=== PATIENT | female | born 1940 | race Caucasian/White ===

== ENCOUNTER 2020-01-15 14:51 | Outpatient (REF) | payer MEDICARE, BC, SELFPAY ==
[2020-01-16 07:20] LABS: Theophylline 1.1
== END 2020-01-15 14:52 | disposition home or self-care (01) ==
LOC: HO.LAB 14:51
PROVIDERS: Visit Provider Physician Assistant
DX: J45.909 Unspecified asthma, uncomplicated (principal)
CPT/HCPCS: 80198

== ENCOUNTER 2020-06-21 13:18 | Outpatient (REF) | payer MEDICARE, SELFPAY ==
--- NOTE | ~2020-06-21 | MM_ITS ---
EXAMINATION: MM SCREENING DIGITAL BREAST TOMOSYNTHESIS, BILATERAL CLINICAL INFORMATION: Screening. Asymptomatic. The lifetime risk of breast cancer based on the Tyrer-Cuzick Model is 2%. COMPARISON: Mammography: 09/06/2018, 03/06/2017, 01/20/2016 TECHNIQUE: Digital mammography is performed in craniocaudal and mediolateral oblique views along with computer-aided detection (CAD). Digital breast tomosynthesis is performed in implant-displaced craniocaudal and implant-displaced mediolateral oblique views along with computer-aided detection (CAD). Synthesized 2D images are generated from the tomosynthesis. FINDINGS: The breasts are extremely dense, which lowers the sensitivity of mammography (ACR BI-RADS breast composition Category d). There are no significant masses, abnormal calcifications, or other abnormalities. There are bilateral implants. Benign coarse capsular calcifications are present on the left. MM/MM tomosynthesis screen imp BI IMPRESSION: No mammographic evidence of malignancy. ASSESSMENT: BI-RADS 2: Benign RECOMMENDATION: Routine annual mammography screening. This patient's information was entered into a reminder system with a target due date for their next mammogram.
== END 2020-06-21 13:19 | disposition home or self-care (01) ==
LOC: HO.MAMMO 13:18
PROVIDERS: Visit Provider Internal Medicine Medical Oncology
DX: Z12.31 Encounter for screening mammogram for malignant neoplasm of breast (principal)
CPT/HCPCS: 77063; 77067

== ENCOUNTER 2020-06-30 10:29 | Outpatient (REF) | payer MEDICARE, SELFPAY ==
[2020-06-30 11:36] LABS: MANUAL DIFF FLAG NO
[2020-06-30 11:42] LABS: Basophils Absolute Auto 0.1 X10*3/uL (0.0-0.2); Basophils Percent Auto 0.8 % (0-2); Eosinophils Absolute Auto 0.2 X10*3/uL (0.0-0.4); Eosinophils Percent Auto 3.7 % (0-4); Hemoglobin 13.8 g/dl (12.0-16.0); Imm Gran Abs Auto 0.03 X10*3/uL (0.00-0.03); Imm Gran Pct Auto 0.5 % (0.0-0.4); Lymphocytes Absolute Auto 2.2 X10*3/uL (1.2-4.9); Lymphocytes Percent Auto 33.6 % (20-40); Mean Corpuscular HGB Conc 32.1 g/dl (31.0-35.0); Mean Corpuscular Hemoglobin 31.2 pg (27.0-33.0); Mean Corpuscular Volume 97.1 fL (80-98); Mean Platelet Volume 9.6 fL (9.4-12.3); Monocytes Absolute Auto 0.7 X10*3/uL (0.1-1.2); Monocytes Percent Auto 10.3 % (2-11); Neutrophils Absolute Auto 3.3 X10*3/uL (2.0-8.3); Neutrophils Percent Auto 51.1 % (45-73); Platelet Count 295 X10*3/uL (160-400); Red Blood Count 4.43 X10*6/uL (4.20-5.50); Red Cell Distribution Width 13.2 % (11.0-16.0); White Blood Count 6.5 X10*3/uL (4.8-10.8)
[2020-06-30 12:50] LABS: Folate 5.1 ng/mL (> or = 4.0); Vitamin B12 399 pg/mL (200-900)
[2020-06-30 13:20] LABS: Alanine Aminotransferase 12 U/L (0-31); Albumin Level 4.1 g/dL (3.5-5.0); Alkaline Phosphatase 69 U/L (39-117); Anion Gap 13 (12-20); Aspartate Amino Transferase 19 U/L (5-31); Bilirubin Total 0.6 mg/dL (0.0-1.0); Blood Urea Nitrogen 14 mg/dL (9-16); Calcium 9.4 mg/dL (8.4-10.2); Carbon Dioxide 26 mmol/L (22-29); Chloride 106 mmol/L (96-108); Cholesterol 156 mg/dL; Estimated Glomerular Filt Rate > 60; Glucose Fasting 89 mg/dL (60-99); HDL Cholesterol 52 mg/dL; LDL Cholesterol Calculated 92 mg/dl; Sodium 141 mmol/L (135-145); Total Protein 6.8 g/dL (6.5-8.0); Triglycerides 64 mg/dL
== END 2020-06-30 10:30 | disposition home or self-care (01) ==
LOC: HO.LAB 10:29
PROVIDERS: PCP Internal Medicine Medical Oncology; Visit Provider Internal Medicine Medical Oncology
DX: I10 Essential (primary) hypertension (principal); E78.2 Mixed hyperlipidemia; J45.909 Unspecified asthma, uncomplicated; R41.3 Other amnesia; F09 Unspecified mental disorder due to known physiological condition
CPT/HCPCS: 36415; 80053; 80061; 82607; 82746; 84439; 84443; 85025

== ENCOUNTER 2020-10-19 11:21 | Outpatient (REF) | payer MEDICARE, SELFPAY ==
[2020-10-19 12:24] LABS: MANUAL DIFF FLAG NO
[2020-10-19 12:34] LABS: Basophils Absolute Auto 0.1 X10*3/uL (0.0-0.2); Basophils Percent Auto 0.7 % (0-2); Eosinophils Absolute Auto 0.4 X10*3/uL (0.0-0.4); Hematocrit 45.2 % (37-47); Hemoglobin 14.6 g/dl (12.0-16.0); Imm Gran Abs Auto 0.03 X10*3/uL (0.00-0.03); Imm Gran Pct Auto 0.4 % (0.0-0.4); Lymphocytes Absolute Auto 2.4 X10*3/uL (1.2-4.9); Lymphocytes Percent Auto 28.3 % (20-40); Mean Corpuscular HGB Conc 32.3 g/dl (31.0-35.0); Mean Corpuscular Hemoglobin 31.3 pg (27.0-33.0); Mean Corpuscular Volume 96.8 fL (80-98); Mean Platelet Volume 9.6 fL (9.4-12.3); Monocytes Absolute Auto 0.8 X10*3/uL (0.1-1.2); Monocytes Percent Auto 9.3 % (2-11); Neutrophils Absolute Auto 4.7 X10*3/uL (2.0-8.3); Neutrophils Percent Auto 56.3 % (45-73); Platelet Count 331 X10*3/uL (160-400); Red Blood Count 4.67 X10*6/uL (4.20-5.50); Red Cell Distribution Width 13.2 % (11.0-16.0); White Blood Count 8.4 X10*3/uL (4.8-10.8)
[2020-10-19 12:47] LABS: Alanine Aminotransferase 9 U/L (0-31); Albumin Level 4.3 g/dL (3.5-5.0); Alkaline Phosphatase 70 U/L (39-117); Anion Gap 14 (12-20); Aspartate Amino Transferase 21 U/L (5-31); Bilirubin Total 0.5 mg/dL (0.0-1.0); Blood Urea Nitrogen 14 mg/dL (9-16); Calcium 10.1 mg/dL (8.4-10.2); Carbon Dioxide 27 mmol/L (22-29); Chloride 104 mmol/L (96-108); Cholesterol 165 mg/dL; Estimated Glomerular Filt Rate 59; Glucose Fasting 94 mg/dL (60-99); HDL Cholesterol 51 mg/dL; LDL Cholesterol Calculated 95 mg/dl; Potassium 3.9 mmol/L (3.3-5.1); Sodium 141 mmol/L (135-145); Total Protein 7.2 g/dL (6.5-8.0); Triglycerides 95 mg/dL
== END 2020-10-19 11:22 | disposition home or self-care (01) ==
LOC: HO.LAB 11:21
PROVIDERS: PCP Internal Medicine Medical Oncology; Visit Provider Internal Medicine Medical Oncology
DX: I10 Essential (primary) hypertension (principal); E78.2 Mixed hyperlipidemia; R63.6 Underweight
CPT/HCPCS: 36415; 80053; 80061; 85025

== ENCOUNTER 2020-11-04 09:59 | Emergency (ER) | payer MEDICARE, BC, SELFPAY ==
--- NOTE | ~2020-11-04 | CT_ITS ---
EXAMINATION: CT HEAD WITHOUT CONTRAST CLINICAL INFORMATION: Confused with altered mental status. COMPARISON: None. TECHNIQUE: Contiguous axial imaging was performed from the skull base to vertex without intravenous administration of contrast. This CT examination was performed using dose optimization techniques as appropriate, variously including the following: *Automated exposure control *Adjustment of mA and/or kV according to patient size (this includes techniques or standardized protocols for targeted exams where dose is matched to indication/reason for exam; i.e. extremities or head) *Use of iterative reconstruction technique DLP: 637 mGy-cm FINDINGS: There is hypoattenuation of the brain parenchyma with decreased nieves to white matter differentiation in the left posterior parietal lobe (images 24 through 21 of series 2). These findings are most consistent with a territorial infarction in the region of the left MCA. There is no evidence of hemorrhagic conversion, nor significant mass effect. There is no midline shift. Nieves to white matter differentiation is otherwise preserved. A few foci of hypoattenuation in the periventricular and deep white matter are consistent with mild microangiopathy. There is proportional prominence of the ventricles and sulcal spaces. No evidence for obstructive hydrocephalus. No extra-axial fluid collections. No acute soft tissue or osseous abnormalities. The mastoid air cells and paranasal sinuses are clear. CT/CT head/brain wo con IMPRESSION: Acute to subacute infarction in the left parietal lobe within the territory of the left middle cerebral artery. Correlate clinically for focal neurological abnormalities. No evidence of hemorrhagic conversion nor significant mass effect. This critical result was discussed with Bea Gorman at 11/04/2020 11:41 AM and it was ascertained that the content and urgency of the report was understood at the time of direct communication.
--- NOTE | ~2020-11-04 | XR_ITS ---
EXAMINATION: XR CHEST CLINICAL INFORMATION: Shortness of breath, congestion, and cough. COMPARISON: None. TECHNIQUE: AP view of the chest was obtained. FINDINGS: Normal appearance of the cardiomediastinal silhouette aside from atherosclerotic disease of the thoracic aorta. There is mild interstitial prominence throughout both lungs. There is a subtle more focal opacity in the right lower lobe. No pleural effusions or pneumothorax. There is biapical pleural thickening/scarring. There is no evidence of acute bony abnormalities. XR/XR chest 1V IMPRESSION: Interstitial prominence predominantly in the lung bases is indeterminate. This could be seen acutely in the setting of atypical infections, bronchitis or asthma. In the right lung base, there is a questionable more focal opacity with could be related with subsegmental atelectasis, bronchovascular crowding, bronchial wall thickening or early consolidation. Recommend a short-term follow-up to ensure resolution of these findings.
--- NOTE | ~2020-11-04 | CT_ITS ---
EXAMINATION: CT ANGIOGRAM NECK WITH CONTRAST CT ANGIOGRAM BRAIN WITH CONTRAST CLINICAL INFORMATION: Acute to subacute stroke. COMPARISON: Head CT performed just prior. TECHNIQUE: Test bolus sequences followed by intravenous administration 70 mL of Omnipaque 350. Helical imaging was performed in the axial plane from the thoracic inlet to the skull vertex. Delayed postcontrast imaging of the head was also performed. The data was processed at the cardiovascular technologist workstation for generation of MIP sequences. Angled MIPs and volume rendered reformatted images were also generated at an offline 3D workstation. Stenoses are assessed in accordance with NASCET criteria unless otherwise indicated. This CT examination was performed using dose optimization techniques as appropriate, variously including the following: *Automated exposure control *Adjustment of mA and/or kV according to patient size (this includes techniques or standardized protocols for targeted exams where dose is matched to indication/reason for exam; i.e. extremities or head) *Use of iterative reconstruction technique DLP: 1319 mGy-cm FINDINGS: Head CT: There is redemonstration of a subacute infarct within the left parietal lobe. There is no hemorrhagic transformation. There is mild localized sulcal effacement but no significant regional mass effect or midline shift. Hypoattenuation in the cerebral white matter is compatible with chronic microangiopathy. The ventricles are normal in size without hydrocephalus. The dural venous sinuses are normally opacified. The extracranial structures are within normal limits. Neck CTA: Atheromatous changes are seen involving the aortic arch but without stenosis. The bilateral common carotid arteries are patent. Atheromatous changes are seen at the bilateral carotid bifurcations and along the proximal cervical internal carotid arteries resulting in 52% stenosis of the proximal right internal carotid artery. No significant stenosis is seen at the left internal carotid artery origin. There is severe stenosis at the right vertebral artery origin. More distally, the cervical right vertebral artery is patent through the the V2 the V3 and V4 segments are further described on the head CTA heading. The left vertebral artery appears mildly dominant. Head CTA: Bilateral carotid siphon atheromatous calcifications are seen without significant stenosis. The A1 and A2 ARPIT segments appear widely patent. There is severe stenosis at the junction of the right A2 and A3 segment but more distally the ACAs are opacified. The MCAs are patent proximally. There is focal occlusion of the distal left M2 segments within the posterior aspect of the sylvian fissure. The MCA collaterals appear symmetric. There is evidence of a right vertebral artery dissection extending from the V3 segment through the V4/intradural segment. A filling defect compatible with a flap is seen extending from the extradural to the intradural segment and best demonstrated on series 10 image [id number]. There is associated severe stenosis of the distal intradural right vertebral artery segment. The left vertebral artery opacifies normally. The basilar artery is patent. office inspector are normally opacified. No aneurysm is seen. Non-vascular findings: Significant pleural parenchymal thickening/scarring is seen at the bilateral lung apices. There are background changes of emphysema. Degenerative changes are noted in the cervical spine most notably at the C6-C7 level. 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 There is an intimal flap seen in the region of dissection. The distal intradural right vertebral artery demonstrates moderate to severe stenosis. There is focal occlusion of the distal left M2 MCA segment. The MCA collaterals are otherwise symmetric. There is severe stenosis of the right vertebral artery origin. This critical result was discussed with Bea ROSAS on 11/04/2020 2:38 PM, and it was ascertained that the content and urgency of the report was understood at the time of direct communication.
--- NOTE | 2020-11-04 10:12 | ECG_ITS ---
Test Reason : SOB Blood Pressure : / mmHG Vent. Rate : 074 BPM Atrial Rate : 074 BPM P-R Int : 154 ms QRS Dur : 086 ms QT Int : 404 ms P-R-T Axes : 082 066 075 degrees QTc Int : 448 ms Normal sinus rhythm Possible Left atrial enlargement Left ventricular hypertrophy Abnormal ECG No previous ECGs available Referred By: Bea Gorman Electronically Signed By:NATTY ROWE
--- NOTE | 2020-11-04 10:16 | ED.AMS ---
HPI - Altered Mental Status General Chief Complaint: General Medical Stated Complaint: 1 WEEK INCREASED AMS W/COUGH FROM HOME Time Seen by Provider: 11/04/20 10:12 Source: patient and EMS Mode of arrival: EMS Limitations: altered mental status History of Present Illness HPI narrative: 80 y/o female with unknown medial history presents to the ER with confusion for the last 1 week. She spoke with her sister on the phone this morning who called 911 for her because of her marked confusion per EMS. On EMS arrival they report she is living in an unkempt home with significant hording, several cats. She is unable to report a history and offers no complaints. She is confused and having a hard time completing a sentence with scattered thoughts. She got up and went to use the bathroom on arrival. BP elevated 180-190s systolic. MD complaint: confusion Onset (ago): unknown Timing confirmed by: family member Severity: moderate Consistency of symptoms: getting Worse Context: unknown Associated symptoms: cough Treatments prior to arrival: oxygen Related Data Home Medications Medication Instructions Recorded Confirmed albuterol sulfate 90 mcg/actuation 2 puff PO Q2-4H PRN 11/04/20 aerosol inhaler atorvastatin 20 mg tablet 1 tab PO DAILY 11/04/20 estradiol 0.5 mg tablet 1 tab PO MO 11/04/20 famotidine 40 mg tablet 1 tab PO DAILY 11/04/20 medroxyprogesterone 5 mg tablet 5 mg PO DAILY 11/04/20 mesalamine 400 mg capsule (with 4 cap PO BID 11/04/20 delayed release tablets inside) (Delzicol) mometasone-formoterol HFA 200 2 puff PO BID 11/04/20 mcg-5 mcg/actuation aerosol inhaler (Dulera) montelukast 10 mg tablet 1 tab PO BEDTIME 11/04/20 sotalol 80 mg tablet 1 tab PO DAILY 11/04/20 theophylline 300 mg 1 tab PO DAILY 11/04/20 tablet,extended release,12 hr tiotropium bromide 18 mcg capsule 1 cap INHALATION DAILY 11/04/20 with inhalation device (Spiriva with HandiHaler) Allergies Allergy/AdvReac Type Severity Reaction Status Date / Time Unable to Assess Allergy Unverified 11/04/20 10:12 Review of Systems Review of Systems: Yes Unobtainable due to mental condition and Unobtainable due to mental status PMF Past Medical History Attestation statement: The following information was validated with the patient. Social History Social History Alcohol intake: never Patient Tobacco Use Status: Current everyday Tobacco user Smoked in Last 30 Days: Yes Use of substances other than those prescribed or required for medical reasons: No Advance Directives: No Advance Directives Information Provided: Yes Physical Exam Vital Signs: Vital Signs: Last Vital Signs Temp 97.6 F 11/04/20 11:28 Pulse 86 11/04/20 14:36 Resp 17 11/04/20 14:36 BP 144/97 H 11/04/20 14:36 Pulse Ox 95 11/04/20 14:36 Body Mass Index 18.2 Appearance: Alert, thin, frail. Oriented X1. No acute distress. Head: atraumatic normocephalic Eyes: Pupils equal, round and reactive to light. ENT: Pharynx normal. Neck: Normal inspection. Neck supple. CVS: Normal heart rate and rhythm. Pulses normal. Respiratory: No respiratory distress. Breath sounds diminished at bilateral bases. Congested cough. Abdomen: Soft and nontender. +BS x4 Skin: Skin warm and dry. Normal skin color. Normal skin turgor. No rashes. Extremities: No lower extremity edema. Atraumatic x4 Neuro: Oriented X 1. Confused, speaking in complete sentences but not making sense, moves all extremities, strength equal and symmetrical throughout and follows commands. NIH Stroke Scale Internal: Initial- Upon Arrival Level of Consciousness: Alert Level of Consciousness Questions: Answers one question correctly Level of Consciousness Commands: Performs both tasks correctly Best Gaze: Normal Visual: No visual loss Facial Palsy: Normal Motor Arm (Right): No drift Motor Arm (Left): No drift Motor Leg (Right): No drift Motor Leg (Left): No drift Limb Ataxia: Absent Sensory: Normal Best Language: No aphasia Dysarthia: Normal Extinction and Inattention: No abnormality Score: 1 Course Course Course Narrative: 80 y/o female with unknown medical history presents with worsening confusion x1 week. History is very limited as patient is a poor historian. She smells of urine, is unkempt and has a congested cough. Neuro exam is nonfocal, very confused. Will get labs, CXR, EKG, UA, and COVID swab. Vitals are stable at this time. Reevaluation(s) Reevaluation #1: CT head showing acute to subacute left parietal stroke in the region of the territory of the left MCA without mass effect, edema or hemorrhagic conversion. No last known well time, with non-debilitating, non-focal symptoms not a tPA candidate at this time. Will keep BP 180. Will get CTA head/neck to look for LVO. UA + for infection, other labs pending. Not febrile or tachycardic. Will treat with Rocephin. Reevaluation #2: Case management found sister's phone number Roxanne [phone] - called and spoke with her. She reports her sister has a history of COPD, long time smoker, hx HTN and cartoid stenosis?, was a patient of Dr. Lagos'ryan but has not been to the doctor since he . She has been more confused and forgetful the last 1 week. Roxanne saw her last week and thought she looked unwell but patient refused to go to the hospital or the doctor. This morning when she spoke with her it was worse so she called 911. Her pharmacy is [facility] in [place] [facility]. CTA Head/neck pending. IV azithromycin added for abnormal CXR, possible bronchitis vs CAP with underlying COPD. SPO2 91-96% on room air, no respiratory distress. 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 Distal M2 with occlusion on the left, subacute. Transfer imaged to [facility] and transfer line called. Additional Reevaluation(s): Dr. Carson from Neuro Stroke team called back after reviewing images with Neuro interventionalist - question of the vertebral artery dissection as there is streak artifact there, they will plan on getting an MRI at [facility] to better evaluate. She is okay for transfer to admission to Med/Surg under Hospitalist service. NM aspirin 300 mg given. NPO. Patient and sister Roxanne updated at the bedside about results and need for transfer to higher level of care. Consultations Consultation #1: [facility] stroke MDM - Altered Mental Status Lab Data Result diagrams: 11/04/20 12:07 11/04/20 12:07 Labs: Lab Results 11/04/20 11/04/20 11/04/20 Range/Units 10:45 10:45 12:07 WBC 8.6 (4.8-10.8) X10*3/uL RBC 4.73 (4.20-5.50) X10*6/uL Hgb 15.0 (12.0-16.0) g/dl Hct 45.8 (37-47) % MCV 96.8 (80-98) fL MCH 31.7 (27.0-33.0) pg MCHC 32.8 (31.0-35.0) g/dl RDW 13.5 (11.0-16.0) % Plt Count 298 (160-400) X10*3/uL MPV 9.6 (9.4-12.3) fL Immature Gran % (Auto) 0.2 (0.0-0.4) % Neut % (Auto) 66.2 (45-73) % Lymph % (Auto) 22.0 (20-40) % Stevens % (Auto) 7.7 (2-11) % Eos % (Auto) 3.4 (0-4) % Baso % (Auto) 0.5 (0-2) % Lymph # (Auto) 1.9 (1.2-4.9) X10*3/uL Stevens # (Auto) 0.7 (0.1-1.2) X10*3/uL Eos # (Auto) 0.3 (0.0-0.4) X10*3/uL Baso # (Auto) 0.0 (0.0-0.2) X10*3/uL Abs Immat Gran (auto) 0.02 (0.00-0.03) X10*3/uL Absolute Neuts (auto) 5.7 (2.0-8.3) X10*3/uL Absolute Nucleated RBC 0.000 (0.0-0.012) X10*3/uL Nucleated RBC % (auto) 0.0 (0.0-0.2) /100WBC PT (9.9-13.0) SEC INR (0.9-1.1) APTT (24.1-38.0) SEC Sodium (135-145) mmol/L Potassium (3.3-5.1) mmol/L Chloride (96-108) mmol/L Carbon Dioxide (22-29) mmol/L Anion Gap (12-20) BUN (9-16) mg/dL Creatinine (0.5-1.4) mg/dL Estim Creat Clear Calc Estimated GFR Random Glucose (60-115) mg/dL Lactic Acid (0.5-2.0) mmol/L Calcium (8.4-10.2) mg/dL Magnesium (1.6-2.6) mg/dL Total Bilirubin (0.0-1.0) mg/dL Direct Bilirubin (0.0-0.5) mg/dL AST (5-31) U/L ALT (0-31) U/L Alkaline Phosphatase (39-117) U/L Total Creatine Kinase (26-140) U/L Troponin I High Sens (<3.5-17.0) ng/L B-Natriuretic Peptide (<100) pg/mL Total Protein (6.5-8.0) g/dL Albumin (3.5-5.0) g/dL Urine Color YELLOW Urine Appearance HAZY Urine pH 7.0 (5.0-8.0) Ur Specific [place] 1.015 (1.005-1.025) Urine Protein NEG (NEG-TRACE) MG/DL Urine Glucose (UA) NEG (NEG) MG/DL Urine Ketones NEG (NEG) MG/DL Urine Blood TRACE (NEG) Urine Nitrite NEG (NEG) Ur Leukocyte Esterase 1+ H (NEG) Urine RBC 1-4 (0) /HPF Urine WBC 10-14 H (0-4) /HPF Ur Squamous Epith Cells 4+ /LPF Urine Bacteria 1+ /LPF Urine Opiates Screen (Not Detect) Urine Fentanyl Screen (Not Detect) Ur Barbiturates Screen (Not Detect) Ur Phencyclidine Scrn (Not Detect) Ur Amphetamines Screen (Not Detect) U Benzodiazepines Scrn (Not Detect) Urine Cocaine Screen (Not Detect) U Marijuana (THC) Screen (Not Detect) Ethyl Alcohol mg/dL COVID-19 (MU) Negative (Negative) COVID-19 Clin Com See Note 11/04/20 11/04/20 11/04/20 Range/Units 12:07 12:07 12:07 WBC (4.8-10.8) X10*3/uL RBC (4.20-5.50) X10*6/uL Hgb (12.0-16.0) g/dl Hct (37-47) % MCV (80-98) fL MCH (27.0-33.0) pg MCHC (31.0-35.0) g/dl RDW (11.0-16.0) % Plt Count (160-400) X10*3/uL MPV (9.4-12.3) fL Immature Gran % (Auto) (0.0-0.4) % Neut % (Auto) (45-73) % Lymph % (Auto) (20-40) % Stevens % (Auto) (2-11) % Eos % (Auto) (0-4) % Baso % (Auto) (0-2) % Lymph # (Auto) (1.2-4.9) X10*3/uL Stevens # (Auto) (0.1-1.2) X10*3/uL Eos # (Auto) (0.0-0.4) X10*3/uL Baso # (Auto) (0.0-0.2) X10*3/uL Abs Immat Gran (auto) (0.00-0.03) X10*3/uL Absolute Neuts (auto) (2.0-8.3) X10*3/uL Absolute Nucleated RBC (0.0-0.012) X10*3/uL Nucleated RBC % (auto) (0.0-0.2) /100WBC PT (9.9-13.0) SEC INR (0.9-1.1) APTT (24.1-38.0) SEC Sodium 141 (135-145) mmol/L Potassium 4.0 (3.3-5.1) mmol/L Chloride 105 (96-108) mmol/L Carbon Dioxide 28 (22-29) mmol/L Anion Gap 12 (12-20) BUN 15 (9-16) mg/dL Creatinine 0.73 (0.5-1.4) mg/dL Estim Creat Clear Calc 52.8 Estimated GFR > 60 Random Glucose 87 (60-115) mg/dL Lactic Acid 0.8 (0.5-2.0) mmol/L Calcium 9.5 (8.4-10.2) mg/dL Magnesium 2.0 (1.6-2.6) mg/dL Total Bilirubin 0.5 (0.0-1.0) mg/dL Direct Bilirubin 0.2 (0.0-0.5) mg/dL AST 19 (5-31) U/L ALT 10 (0-31) U/L Alkaline Phosphatase 59 (39-117) U/L Total Creatine Kinase 84 (26-140) U/L Troponin I High Sens 10.0 (<3.5-17.0) ng/L B-Natriuretic Peptide 147 H (<100) pg/mL Total Protein 6.8 (6.5-8.0) g/dL Albumin 4.0 (3.5-5.0) g/dL Urine Color Urine Appearance Urine pH (5.0-8.0) Ur Specific [place] (1.005-1.025) Urine Protein (NEG-TRACE) MG/DL Urine Glucose (UA) (NEG) MG/DL Urine Ketones (NEG) MG/DL Urine Blood (NEG) Urine Nitrite (NEG) Ur Leukocyte Esterase (NEG) Urine RBC (0) /HPF Urine WBC (0-4) /HPF Ur Squamous Epith Cells /LPF Urine Bacteria /LPF Urine Opiates Screen (Not Detect) Urine Fentanyl Screen (Not Detect) Ur Barbiturates Screen (Not Detect) Ur Phencyclidine Scrn (Not Detect) Ur Amphetamines Screen (Not Detect) U Benzodiazepines Scrn (Not Detect) Urine Cocaine Screen (Not Detect) U Marijuana (THC) Screen (Not Detect) Ethyl Alcohol mg/dL COVID-19 (MU) (Negative) COVID-19 Clin Com 11/04/20 11/04/20 11/04/20 Range/Units 12:07 12:07 14:32 WBC (4.8-10.8) X10*3/uL RBC (4.20-5.50) X10*6/uL Hgb (12.0-16.0) g/dl Hct (37-47) % MCV (80-98) fL MCH (27.0-33.0) pg MCHC (31.0-35.0) g/dl RDW (11.0-16.0) % Plt Count (160-400) X10*3/uL MPV (9.4-12.3) fL Immature Gran % (Auto) (0.0-0.4) % Neut % (Auto) (45-73) % Lymph % (Auto) (20-40) % Stevens % (Auto) (2-11) % Eos % (Auto) (0-4) % Baso % (Auto) (0-2) % Lymph # (Auto) (1.2-4.9) X10*3/uL Stevens # (Auto) (0.1-1.2) X10*3/uL Eos # (Auto) (0.0-0.4) X10*3/uL Baso # (Auto) (0.0-0.2) X10*3/uL Abs Immat Gran (auto) (0.00-0.03) X10*3/uL Absolute Neuts (auto) (2.0-8.3) X10*3/uL Absolute Nucleated RBC (0.0-0.012) X10*3/uL Nucleated RBC % (auto) (0.0-0.2) /100WBC PT 12.2 (9.9-13.0) SEC INR 1.1 (0.9-1.1) APTT 34.2 (24.1-38.0) SEC Sodium (135-145) mmol/L Potassium (3.3-5.1) mmol/L Chloride (96-108) mmol/L Carbon Dioxide (22-29) mmol/L Anion Gap (12-20) BUN (9-16) mg/dL Creatinine (0.5-1.4) mg/dL Estim Creat Clear Calc Estimated GFR Random Glucose (60-115) mg/dL Lactic Acid (0.5-2.0) mmol/L Calcium (8.4-10.2) mg/dL Magnesium (1.6-2.6) mg/dL Total Bilirubin (0.0-1.0) mg/dL Direct Bilirubin (0.0-0.5) mg/dL AST (5-31) U/L ALT (0-31) U/L Alkaline Phosphatase (39-117) U/L Total Creatine Kinase (26-140) U/L Troponin I High Sens (<3.5-17.0) ng/L B-Natriuretic Peptide (<100) pg/mL Total Protein (6.5-8.0) g/dL Albumin (3.5-5.0) g/dL Urine Color Urine Appearance Urine pH (5.0-8.0) Ur Specific [place] (1.005-1.025) Urine Protein (NEG-TRACE) MG/DL Urine Glucose (UA) (NEG) MG/DL Urine Ketones (NEG) MG/DL Urine Blood (NEG) Urine Nitrite (NEG) Ur Leukocyte Esterase (NEG) Urine RBC (0) /HPF Urine WBC (0-4) /HPF Ur Squamous Epith Cells /LPF Urine Bacteria /LPF Urine Opiates Screen Not Detected (Not Detect) Urine Fentanyl Screen Not Detected (Not Detect) Ur Barbiturates Screen Not Detected (Not Detect) Ur Phencyclidine Scrn Not Detected (Not Detect) Ur Amphetamines Screen Not Detected (Not Detect) U Benzodiazepines Scrn Not Detected (Not Detect) Urine Cocaine Screen Not Detected (Not Detect) U Marijuana (THC) Screen Not Detected (Not Detect) Ethyl Alcohol < 10 mg/dL COVID-19 (MU) (Negative) COVID-19 Clin Com ECG Data ECG #1: Attestation: I personally reviewed and interpreted this ECG as follows: ECG interpretation date: 11/04/20 ECG interpretation time: 11:35 Interpretation: normal sinus rhythm, HR 74 bpm, normal NM interval, no ST segment elevations or depression Critical Care Time Critical Care Time Critical Care Time: Yes Total Critical Care Time: 48 Attestation: I have personally provided critical care time exclusive of time spent on separately billable procedures. Time includes review of lab data, radiology results, discussion with consultants, and monitoring for potential decompensation. Intervention performed as documented. Discharge Plan Discharge Clinical Impression: Vertebral artery dissection, Acute UTI Stroke Qualifiers: CVA mechanism: occlusion Precerebral and cerebral artery: middle cerebral artery Laterality of affected vessel: left Qualified Code(s): I63.512 - Cerebral infarction due to unspecified occlusion or stenosis of left middle cerebral artery Hypertension Qualifiers: Hypertension type: unspecified Qualified Code(s): I10 - Essential (primary) hypertension Patient Disposition: er [facility] Transfer Details: [facility] Prescriptions: No Action atorvastatin 20 mg tablet 1 tab PO DAILY RF: 0 sotalol 80 mg tablet 1 tab PO DAILY RF: 0 famotidine 40 mg tablet 1 tab PO DAILY RF: 0 medroxyprogesterone 5 mg tablet 5 mg PO DAILY RF: 0 theophylline 300 mg tablet extended release 12 hr 1 tab PO DAILY RF: 0 montelukast 10 mg tablet 1 tab PO BEDTIME RF: 0 estradiol 0.5 mg tablet 1 tab PO MO RF: 0 albuterol sulfate 90 mcg/actuation HFA aerosol inhaler 2 puff PO Q2-4H PRN (Reason: Wheezing) RF: 0 Spiriva with HandiHaler 18 mcg capsule, w/inhalation device 1 cap inhalation DAILY RF: 0 Dulera 200-5 mcg/actuation HFA aerosol inhaler 2 puff PO BID RF: 0 mesalamine [Delzicol] 400 mg capsule (with del rel tablets) 4 cap PO BID RF: 0
[2020-11-04 10:33] VITALS: BP 150/70; BP 188/105; PULSE 74; PULSE 90; RESP 24; TEMP 36.7; O2SAT 100; O2SAT 94; BMI 18.2
[2020-11-04] MEDS: 0.9 % Sodium Chloride 1,000 ML 999 ML IVCONT (10:51)
[2020-11-04 11:03] LABS: Appearance Urine HAZY; Color Urine YELLOW; Glucose Urine UA NEG (NEG); Leukocyte Esterase Urine 1+ (NEG); Nitrite Urine NEG (NEG); Specific Gravity - Urine 1.015 (1.005-1.025); UACC Culture Trigger YES; Urine Blood TRACE (NEG); Urine Ketones NEG (NEG); Urine Protein NEG (NEG-TRACE)
[2020-11-04 11:21] LABS: COVID-19 Test Negative (Negative)
[2020-11-04 11:28] VITALS: BP 197/95; PULSE 75; RESP 26; TEMP 36.4; O2SAT 91
[2020-11-04 11:33] LABS: Bacteria Urine 1+ /LPF; Squamous Epithelial Cell Urine 4+ /LPF
[2020-11-04 12:17] LABS: MANUAL DIFF FLAG NO
[2020-11-04 12:21] LABS: Basophils Percent Auto 0.5 % (0-2); Eosinophils Absolute Auto 0.3 X10*3/uL (0.0-0.4); Eosinophils Percent Auto 3.4 % (0-4); Hematocrit 45.8 % (37-47); Imm Gran Abs Auto 0.02 X10*3/uL (0.00-0.03); Imm Gran Pct Auto 0.2 % (0.0-0.4); Lymphocytes Absolute Auto 1.9 X10*3/uL (1.2-4.9); Mean Corpuscular HGB Conc 32.8 g/dl (31.0-35.0); Mean Corpuscular Hemoglobin 31.7 pg (27.0-33.0); Mean Corpuscular Volume 96.8 fL (80-98); Mean Platelet Volume 9.6 fL (9.4-12.3); Monocytes Absolute Auto 0.7 X10*3/uL (0.1-1.2); Monocytes Percent Auto 7.7 % (2-11); Neutrophils Absolute Auto 5.7 X10*3/uL (2.0-8.3); Neutrophils Percent Auto 66.2 % (45-73); Platelet Count 298 X10*3/uL (160-400); Red Blood Count 4.73 X10*6/uL (4.20-5.50); Red Cell Distribution Width 13.5 % (11.0-16.0); White Blood Count 8.6 X10*3/uL (4.8-10.8)
[2020-11-04 12:29] LABS: INTERNATIONAL NORM RATIO 1.1 (0.9-1.1); Prothrombin Time 12.2 SEC (9.9-13.0)
[2020-11-04 12:31] LABS: Partial Thromboplastin Time 34.2 SEC (24.1-38.0)
[2020-11-04 12:33] LABS: Lactic Acid 0.8 mmol/L (0.5-2.0)
[2020-11-04 12:39] LABS: Alanine Aminotransferase 10 U/L (0-31); Alkaline Phosphatase 59 U/L (39-117); Anion Gap 12 (12-20); Aspartate Amino Transferase 19 U/L (5-31); Bilirubin Direct 0.2 mg/dL (0.0-0.5); Bilirubin Total 0.5 mg/dL (0.0-1.0); Blood Urea Nitrogen 15 mg/dL (9-16); Calcium 9.5 mg/dL (8.4-10.2); Carbon Dioxide 28 mmol/L (22-29); Chloride 105 mmol/L (96-108); Creatinine Clr Calc Pharmacy 52.8; Estimated Glomerular Filt Rate > 60; Glucose Random 87 mg/dL (60-115); Sodium 141 mmol/L (135-145); Total Protein 6.8 g/dL (6.5-8.0)
[2020-11-04 12:41] LABS: B Type Natriuretic Peptide 147 pg/mL (<100)
[2020-11-04 12:49] LABS: Ethanol < 10 mg/dL
[2020-11-04] MEDS: iohexoL 350 MG/ML 100 ML INFUS..BTL IV (13:58)
[2020-11-04 14:36] VITALS: BP 144/97; PULSE 86; RESP 17; O2SAT 95
[2020-11-04] MEDS: cefTRIAXone sodium 1 GM in 0.9 % Sodium Chloride 50 ML IV (14:45)
[2020-11-04 14:51] LABS: Amphetamine Screen Urine Not Detected (Not Detect); Barbiturates, Urine Not Detected (Not Detect); Benzodiazepines Screen Urine Not Detected (Not Detect); Cannabinoid Screen Urine Not Detected (Not Detect); Cocaine Screen Urine Not Detected (Not Detect); Fentanyl, urine Not Detected (Not Detect); Opiate Screen Urine Not Detected (Not Detect); Phencyclidine Screen Urine Not Detected (Not Detect)
[2020-11-04] MEDS: Azithromycin 500 MG in 0.9 % Sodium Chloride 250 ML 125 MG IV (15:51)
[2020-11-04] MEDS: Aspirin 300 MG SUPP.RECT PR (15:54)
[2020-11-04 15:59] VITALS: BP 178/96; PULSE 84; RESP 18
--- NOTE | 2020-11-04 16:07 | PC.NURSE ---
pt awake but confused at this time, all neuro's intact, no visible droop, moving all extremities, hand grasp strong and equal, ns on the monitor [place] [facility] [place]po
--- NOTE | 2020-11-04 16:50 | PHA.MEDREC ---
Pharmacy Consult ? Medication Reconciliation Pharmacy has completed the medication reconciliation. Done with refill history. Patient is confused.
--- NOTE | 2020-11-04 17:23 | PC.NURSE ---
[place] [facility] [place] on hold for a few min then was told that Shonda ramos will be calling me back
--- NOTE | 2020-11-04 18:00 | PC.NURSE ---
report given to jose at [facility]
== END 2020-11-04 18:01 | disposition short-term general hospital (02) ==
PROVIDERS: Physician Assistant; Emergency Provider Emergency Medicine; PCP Internal Medicine Medical Oncology
DX: I63.512 Cerebral infarction due to unspecified occlusion or stenosis of left middle cerebral artery (principal); I77.74 Dissection of vertebral artery; N39.0 Urinary tract infection, site not specified; R29.701 NIHSS score 1; R05 Cough; R06.02 Shortness of breath; R41.0 Disorientation, unspecified; I10 Essential (primary) hypertension; F17.200 Nicotine dependence, unspecified, uncomplicated; Z20.822 Contact with and (suspected) exposure to COVID-19; Z71.6 Tobacco abuse counseling; Z79.899 Other long term (current) drug therapy
CPT/HCPCS: 36415; 70450; 70496; 70498; 71045; 80048; 80076; 80307; 81001; 81003; 82077; 82550; 83605; 83735; 83880; 84484; 85025; 85610; 85730; 87040; 87086; 87635; 93005; 96361; 96365; 96366; 96367; 99285; 99291; J0456; J0696; Q9967

== ENCOUNTER 2020-11-26 21:18 | Inpatient (IN) | payer MEDICARE, BC, SELFPAY ==
--- NOTE | ~2020-11-26 | XR_ITS ---
EXAMINATION: XR CHEST CLINICAL INFORMATION: Shortness of breath. COMPARISON: Chest x-ray November 04, 2020 TECHNIQUE: Frontal portable view of the chest was obtained. 9:30 PM FINDINGS: Small focal airspace opacity at the left lung base partially silhouetting the left diaphragm. There is a smaller opacity at the left perihilar area. No pulmonary vascular congestion. There is no pleural effusion. The heart size is normal. The cardiac and mediastinal contours are normal. There are calcifications of the thoracic aorta. There are multilevel degenerative changes of dorsal spine. Old healed fracture of the midshaft right clavicle. Degenerative joint disease of the shoulders bilateral. XR/XR chest 1V IMPRESSION: Focal airspace opacities in the left lung base and perihilar region.
--- NOTE | ~2020-11-26 | CT_ITS ---
EXAMINATION: CT ANGIOGRAM OF THE CHEST WITH AND WITHOUT CONTRAST (CT PULMONARY ANGIOGRAM FOR PE) CLINICAL INFORMATION: Reason for Exam SOB, on hormones COMPARISON: None TECHNIQUE: Prior to contrast administration, noncontrast localization images were obtained. Subsequently, multidetector volumetric imaging was performed from the thoracic inlet to below the diaphragms following the administration of 65 mL Omnipaque 350 intravenous contrast. No contrast reaction reported Sagittal, coronal, and MIP oblique sagittal reformatted images were obtained on the CT workstation, uploaded to PACS, and reviewed. This CT examination was performed using dose optimization techniques as appropriate, variously including the following: *Automated exposure control *Adjustment of mA and/or kV according to patient size (this includes techniques or standardized protocols for targeted exams where dose is matched to indication/reason for exam; i.e. extremities or head) *Use of iterative reconstruction technique Total exam dose-length product 237 mGy-cm FINDINGS: QUALITY OF STUDY/CONTRAST BOLUS: Satisfactory. PULMONARY ARTERIES: No central or segmental pulmonary emboli. THORACIC AORTA: No aneurysm or dissection. LUNG: Biapical pleural-parenchymal scarring present. Mild diffuse bronchial wall thickening. Dependent groundglass and parenchymal consolidation present within the left lower lobe suspicious for aspiration pneumonitis. PLEURA: Small left subpulmonic effusion. No pleural effusion on the right. No pneumothorax. MEDIASTINUM: Left ventricular hypertrophy. No pericardial effusion. No hilar or mediastinal lymphadenopathy. No evidence of septal bowing or right heart strain. CHEST WALL/AXILLA: No axillary or internal mammary lymphadenopathy. Bilateral retropectoral breast implants with intracapsular rupture suspected bilaterally. OSSEOUS STRUCTURES: No acute or suspicious osseous abnormality. UPPER ABDOMEN: Unremarkable. CT/CT angio chest PE protocol IMPRESSION: * No pulmonary embolism. * No aortic aneurysm or dissection area * Dependent consolidation within the left lower lobe suspicious for aspiration pneumonitis, accompanied by trace subpulmonic effusion. VTE: negative
--- NOTE | 2020-11-26 21:21 | ECG_ITS ---
Test Reason : DYSPENA Blood Pressure : / mmHG Vent. Rate : 062 BPM Atrial Rate : 062 BPM P-R Int : 162 ms QRS Dur : 080 ms QT Int : 444 ms P-R-T Axes : 075 063 073 degrees QTc Int : 450 ms Sinus rhythm with occasional Premature ventricular complexes Minimal voltage criteria for LVH, may be normal variant ( Sokolow-Sharma ) Borderline ECG Premature ventricular complexes are now rare Heart rate has decreased Referred By: Bobbi Moran Electronically Signed By:JOE PEÑA MD
[2020-11-26 21:31] VITALS: PULSE 89; O2SAT 95
[2020-11-26 21:40] VITALS: BP 182/88; PULSE 74; RESP 22; TEMP 35.5; O2SAT 97; BMI 17.2
[2020-11-26 21:57] LABS: MANUAL DIFF FLAG NO
[2020-11-26 21:59] LABS: Basophils Percent Auto 0.2 % (0-2); Eosinophils Absolute Auto 0.1 X10*3/uL (0.0-0.4); Eosinophils Percent Auto 0.4 % (0-4); Hematocrit 36.7 % (37-47); Hemoglobin 12.1 g/dl (12.0-16.0); Imm Gran Abs Auto 0.08 X10*3/uL (0.00-0.03); Imm Gran Pct Auto 0.7 % (0.0-0.4); Lymphocytes Absolute Auto 1.4 X10*3/uL (1.2-4.9); Lymphocytes Percent Auto 11.9 % (20-40); Mean Corpuscular Hemoglobin 31.3 pg (27.0-33.0); Mean Corpuscular Volume 94.8 fL (80-98); Mean Platelet Volume 9.4 fL (9.4-12.3); Monocytes Absolute Auto 1.1 X10*3/uL (0.1-1.2); Neutrophils Percent Auto 77.8 % (45-73); Platelet Count 336 X10*3/uL (160-400); Red Blood Count 3.87 X10*6/uL (4.20-5.50); Red Cell Distribution Width 13.4 % (11.0-16.0); White Blood Count 11.6 X10*3/uL (4.8-10.8)
[2020-11-26 22:02] LABS: VBG Base Excess 4.7 mmol/L; VBG HCO3 28 mmol/L (22-26); VBG pCO2 38 mmHg; VBG pH 7.47 (7.32-7.43); VBG pO2 46 mmHg
[2020-11-26 22:03] LABS: Venous Blood Gas Refer to POC result
[2020-11-26 22:07] VITALS: PULSE 60
[2020-11-26] MEDS: Albuterol Sulfate (0.083%) 2.5 MG/3 ML VIAL.NEB 5 MG INHALE (22:07)
[2020-11-26 22:10] LABS: Lactic Acid 0.9 mmol/L (0.5-2.0)
[2020-11-26 22:14] LABS: COVID-19 Test Negative (Negative); IDNOW Serial# 9DD0AD1C
--- NOTE | 2020-11-26 22:18 | ED.SOB ---
HPI - SOB/Dyspnea General Chief Complaint: Dyspnea Stated Complaint: pna/resp distress Time Seen by Provider: 11/26/20 21:21 Source: patient, family (Sister) and EMS Mode of arrival: EMS History of Present Illness HPI Narrative: 80-year-old female with history of COPD is brought in by EMS for worsening shortness of breath and increased cough for several days and states that she has been feeling unwell since the end of October. She denies any fevers or chills and also denies any GI or symptoms. Related Data Home Medications Medication Instructions Recorded Confirmed albuterol sulfate 90 mcg/actuation 2 puff PO Q2-4H PRN 11/04/20 11/04/20 aerosol inhaler atorvastatin 20 mg tablet 1 tab PO DAILY 11/04/20 11/04/20 estradiol 0.5 mg tablet 1 tab PO MO 11/04/20 11/04/20 famotidine 40 mg tablet 1 tab PO DAILY 11/04/20 11/04/20 medroxyprogesterone 5 mg tablet 5 mg PO DAILY 11/04/20 11/04/20 mesalamine 400 mg capsule (with 4 cap PO BID 11/04/20 11/04/20 delayed release tablets inside) (Delzicol) mometasone-formoterol HFA 200 2 puff PO BID 11/04/20 11/04/20 mcg-5 mcg/actuation aerosol inhaler (Dulera) montelukast 10 mg tablet 1 tab PO BEDTIME 11/04/20 11/04/20 sotalol 80 mg tablet 1 tab PO DAILY 11/04/20 11/04/20 theophylline 300 mg 1 tab PO DAILY 11/04/20 11/04/20 tablet,extended release,12 hr tiotropium bromide 18 mcg capsule 1 cap INHALATION DAILY 11/04/20 11/04/20 with inhalation device (Spiriva with HandiHaler) Allergies Allergy/AdvReac Type Severity Reaction Status Date / Time Penicillins Allergy Severe ANAPHYLAXIS Unverified 11/05/20 11:15 From Demerol AdvReac Intermediate NAUSEA & Uncoded 11/05/20 11:15 VOMITING Review of Systems Review of Systems: Pertinent positives and negatives as stated in HPI 10 point review of systems is otherwise negative. [facility] Past Medical History Source: nursing notes reviewed Social History Social History Alcohol intake: never Patient Tobacco Use Status: Current everyday Tobacco user Advance Directives: No Advance Directives Information Provided: Yes Physical Exam Vital Signs: Vital Signs: Last Vital Signs Temp 96 F L 11/26/20 21:40 Pulse 60 11/26/20 22:07 Resp 22 H 11/26/20 21:40 BP 182/88 H 11/26/20 21:40 Pulse Ox 97 11/26/20 21:40 Body Mass Index 17.2 VITAL SIGNS: Reviewed. GENERAL: Appears older than stated age, chronically ill, cachectic, in no acute distress. HEAD: Normocephalic/atraumatic EYES: PERRLA, EOMI EARS: Ext canals without abnormality, TMs non-bulging and non-erythematous NOSE: Nares patent bilateral LUNGS: Productive cough noted greenish phlegm, scattered coarse rhonchi bilaterally SpO2<97> on 2 L nasal cannula CARDIOVASCULAR: Regular rate and rhythm without noted murmurs ABDOMEN: Soft, non-tender, non-distended with bowel sounds. MUSCULOSKELETAL: No tenderness, deformities, or effusions noted on gross inspection. EXTREMITIES: No cyanosis, clubbing or edema. SKIN: Inspection of the skin reveals no rashes NEUROLOGIC: Alert and oriented x 4. Strength and sensation to light touch were grossly intact x 4. Course Course Course Narrative: 80-year-old female with history and clinical presentation consistent with likely pneumonia and less likely COPD exacerbation although patient was noted to be hypoxic. On review of all investigations findings are consistent with pneumonia, sepsis and patient received antibiotics and the case was discussed with the inpatient hospitalist who accepts admission but is requesting a CT angio for PE protocol. MDM - SOB/Dyspnea Lab Data Result diagrams: 11/26/20 21:50 11/26/20 21:50 Labs: Lab Results 11/26/20 11/26/20 11/26/20 Range/Units 21:50 21:50 21:50 WBC 11.6 H (4.8-10.8) X10*3/uL RBC 3.87 L (4.20-5.50) X10*6/uL Hgb 12.1 (12.0-16.0) g/dl Hct 36.7 L (37-47) % MCV 94.8 (80-98) fL MCH 31.3 (27.0-33.0) pg MCHC 33.0 (31.0-35.0) g/dl RDW 13.4 (11.0-16.0) % Plt Count 336 (160-400) X10*3/uL MPV 9.4 (9.4-12.3) fL Immature Gran % (Auto) 0.7 H (0.0-0.4) % Neut % (Auto) 77.8 H (45-73) % Lymph % (Auto) 11.9 L (20-40) % [place] % (Auto) 9.0 (2-11) % Eos % (Auto) 0.4 (0-4) % Baso % (Auto) 0.2 (0-2) % Lymph # (Auto) 1.4 (1.2-4.9) X10*3/uL [place] # (Auto) 1.1 (0.1-1.2) X10*3/uL Eos # (Auto) 0.1 (0.0-0.4) X10*3/uL Baso # (Auto) 0.0 (0.0-0.2) X10*3/uL Abs Immat Gran (auto) 0.08 H (0.00-0.03) X10*3/uL Absolute Neuts (auto) 9.0 H (2.0-8.3) X10*3/uL Absolute Nucleated RBC 0.000 (0.0-0.012) X10*3/uL Nucleated RBC % (auto) 0.0 (0.0-0.2) /100WBC VBG pH (7.32-7.43) VBG pCO2 mmHg VBG pO2 mmHg VBG HCO3 (22-26) mmol/L VBG O2 Saturation % VBG Base Excess mmol/L Sodium 140 (135-145) mmol/L Potassium 4.5 (3.3-5.1) mmol/L Chloride 104 (96-108) mmol/L Carbon Dioxide 29 (22-29) mmol/L Anion Gap 12 (12-20) BUN 21 H (9-16) mg/dL Creatinine 0.69 (0.5-1.4) mg/dL Estim Creat Clear Calc 46.5 Estimated GFR > 60 Random Glucose 84 (60-115) mg/dL Lactic Acid 0.9 (0.5-2.0) mmol/L Calcium 9.2 (8.4-10.2) mg/dL Total Bilirubin 0.4 (0.0-1.0) mg/dL AST 43 H D (5-31) U/L ALT 43 H (0-31) U/L Alkaline Phosphatase 65 (39-117) U/L Troponin I High Sens (<3.5-17.0) ng/L B-Natriuretic Peptide (<100) pg/mL Total Protein 6.3 L (6.5-8.0) g/dL Albumin 3.5 (3.5-5.0) g/dL COVID-19 (MU) (Negative) COVID-19 Clin Com 11/26/20 11/26/20 11/26/20 Range/Units 21:50 21:50 21:57 WBC (4.8-10.8) X10*3/uL RBC (4.20-5.50) X10*6/uL Hgb (12.0-16.0) g/dl Hct (37-47) % MCV (80-98) fL MCH (27.0-33.0) pg MCHC (31.0-35.0) g/dl RDW (11.0-16.0) % Plt Count (160-400) X10*3/uL MPV (9.4-12.3) fL Immature Gran % (Auto) (0.0-0.4) % Neut % (Auto) (45-73) % Lymph % (Auto) (20-40) % [place] % (Auto) (2-11) % Eos % (Auto) (0-4) % Baso % (Auto) (0-2) % Lymph # (Auto) (1.2-4.9) X10*3/uL [place] # (Auto) (0.1-1.2) X10*3/uL Eos # (Auto) (0.0-0.4) X10*3/uL Baso # (Auto) (0.0-0.2) X10*3/uL Abs Immat Gran (auto) (0.00-0.03) X10*3/uL Absolute Neuts (auto) (2.0-8.3) X10*3/uL Absolute Nucleated RBC (0.0-0.012) X10*3/uL Nucleated RBC % (auto) (0.0-0.2) /100WBC VBG pH 7.47 H (7.32-7.43) VBG pCO2 38 mmHg VBG pO2 46 mmHg VBG HCO3 28 H (22-26) mmol/L VBG O2 Saturation 73.0 % VBG Base Excess 4.7 mmol/L Sodium (135-145) mmol/L Potassium (3.3-5.1) mmol/L Chloride (96-108) mmol/L Carbon Dioxide (22-29) mmol/L Anion Gap (12-20) BUN (9-16) mg/dL Creatinine (0.5-1.4) mg/dL Estim Creat Clear Calc Estimated GFR Random Glucose (60-115) mg/dL Lactic Acid (0.5-2.0) mmol/L Calcium (8.4-10.2) mg/dL Total Bilirubin (0.0-1.0) mg/dL AST (5-31) U/L ALT (0-31) U/L Alkaline Phosphatase (39-117) U/L Troponin I High Sens 6.7 (<3.5-17.0) ng/L B-Natriuretic Peptide 141 H (<100) pg/mL Total Protein (6.5-8.0) g/dL Albumin (3.5-5.0) g/dL COVID-19 (MU) Negative (Negative) COVID-19 Clin Com See Note ECG Data Attestation: I personally reviewed and interpreted this ECG as follows: Prior ECG tracings: available for review (11/04/2020 no acute changes on comparison) Interpretation: Sinus rhythm with occasional PVCs, HR-62, no STEMI, ME/QRS/QTC are within normal limits. Discharge Plan Discharge Clinical Impression: PNA (pneumonia), Sepsis, Hypoxia Patient Disposition: Admitted As Inpatient Prescriptions: No Action atorvastatin 20 mg tablet 1 tab PO DAILY RF: 0 sotalol 80 mg tablet 1 tab PO DAILY RF: 0 famotidine 40 mg tablet 1 tab PO DAILY RF: 0 medroxyprogesterone 5 mg tablet 5 mg PO DAILY RF: 0 theophylline 300 mg tablet extended release 12 hr 1 tab PO DAILY RF: 0 montelukast 10 mg tablet 1 tab PO BEDTIME RF: 0 estradiol 0.5 mg tablet 1 tab PO MO RF: 0 albuterol sulfate 90 mcg/actuation HFA aerosol inhaler 2 puff PO Q2-4H PRN (Reason: Wheezing) RF: 0 Spiriva with HandiHaler 18 mcg capsule, w/inhalation device 1 cap inhalation DAILY RF: 0 Dulera 200-5 mcg/actuation HFA aerosol inhaler 2 puff PO BID RF: 0 mesalamine [Delzicol] 400 mg capsule (with del rel tablets) 4 cap PO BID RF: 0
[2020-11-26 22:19] LABS: B Type Natriuretic Peptide 141 pg/mL (<100); Troponin-I High Sensitivity 6.7 ng/L (<3.5-17.0)
[2020-11-26 22:30] LABS: Alanine Aminotransferase 43 U/L (0-31); Albumin Level 3.5 g/dL (3.5-5.0); Alkaline Phosphatase 65 U/L (39-117); Anion Gap 12 (12-20); Aspartate Amino Transferase 43 U/L (5-31); Bilirubin Total 0.4 mg/dL (0.0-1.0); Blood Urea Nitrogen 21 mg/dL (9-16); Calcium 9.2 mg/dL (8.4-10.2); Carbon Dioxide 29 mmol/L (22-29); Chloride 104 mmol/L (96-108); Creatinine Clr Calc Pharmacy 46.5; Estimated Glomerular Filt Rate > 60; Glucose Random 84 mg/dL (60-115); Potassium 4.5 mmol/L (3.3-5.1); Sodium 140 mmol/L (135-145); Total Protein 6.3 g/dL (6.5-8.0)
--- NOTE | 2020-11-26 22:42 | P.HPHOSP_ITS ---
History of Present Illness Date of Service: 11/27/20 Chief Complaint: Cough 80-year-old female with a past medical history of hypertension, hyperlipidemia, recent admission to the [facility] for [facility], in expressive aphasia, carotid artery disease presented the hospital with a chief complaint of cough. Patient is a poor historian. And has expressive aphasia. To the patient's sister mentioned that patient was discharged to rehab from [facility] and subsequently the rehab patient was discharged to the detention; patient has been complaining of; any sputum production. Denies any fevers and chills. Complains subsequently sent to hospital further evaluation. Patient denies any chest pain palpitations lightheadedness or dizziness. Review of all other systems is negative except mentioned above ER course: Per ER team patient on presentation noted to have rhonchi, saturating 93%, pneumonia, given cefepime, also sent a CT angio of the chest. Admitted for further management. [facility] Pertinent family history: reviewed Social History Alcohol intake: never Patient Tobacco Use Status: Current everyday Tobacco user Advance Directives: No Advance Directives Information Provided: Yes Meds Allergies Allergy/AdvReac Type Severity Reaction Status Date / Time Penicillins Allergy Severe ANAPHYLAXIS Unverified 11/05/20 11:15 From Demerol AdvReac Intermediate NAUSEA & Uncoded 11/05/20 11:15 VOMITING Active Medications: Current Medications Acetaminophen (Acetaminophen 325 Mg Tablet) 650 mg PO Q6H PRN PRN Reason: Pain, Mild (Pain Scale 1-3) Albuterol/Ipratropium (Albuterol/Iprat 2.5/0.5mg 3 Ml Ampul.Neb) 3 ml INHALE RQ4H WHILE AWAKE DANIELE Enoxaparin Sodium (Enoxaparin Sodium 40 Mg/0.4 Ml Syringe) 40 mg SUBCUT Q24H DANIELE Ceftriaxone Sodium 1 gm/ (Sodium Chloride) 50 mls @ 100 mls/hr IV Q24H DANIELE Doxycycline Hyclate 100 mg/ (Sodium Chloride) 250 mls @ 166.67 mls/hr IV Q12H DANIELE Melatonin (Melatonin 3 Mg Tablet) 6 mg PO BEDTIME PRN PRN Reason: Insomnia Senna (Sennosides 8.6 Mg Tablet) 17.2 mg PO BEDTIME PRN PRN Reason: Constipation Sodium Chloride (0.9 % Sodium Chloride Flush 3 Ml Syringe) [facility] medications as noted from the discharge summary 11/11/2020 at [facility]: Acetaminophen (acetaminophen 325 mg oral tablet) 650 Milligram By Mouth Every 4 hours as needed Temperature Greater than 100.5 Pain , Mild Al Hydroxide/Mg Hydroxide/Simethicone (Maalox Plus Liquid) 15 Milliliter By Mouth 4 times a day as needed Dyspepsia Albuterol (Ventolin HFA 108 mcg/inh inhalation aerosol with adapter) 2 puff(s) Inhalation 4 times a day Albuterol/Ipratropium (Duoneb Inhalation Solution) 1 vials BAND Nebulizer Every 4 hours as needed Wheezing/Shortness of Breath Aspirin (aspirin 81 mg oral delayed release tablet) 81 Milligram By Mouth Daily Atorvastatin (atorvastatin 80 mg oral tablet) 1 tab(s) 80 Milligram By Mouth Daily at bedtime Bisacodyl (bisacodyl 10 mg rectal suppository) 1 suppository(ies) 10 Milligram Rectally Daily as needed Constipation Chondroitin/Glucosamine/Methylsulfonylmethane (Glucosamine & Chondroitin with MSM) By Mouth 3 times a day Clopidogrel (Plavix 75 mg oral tablet) 75 Milligram 1 tablet By Mouth Daily Docusate-Senna (Docusate/Senna Tablet) 1 tab(s) By Mouth 2 times a day as needed Constipation Famotidine (famotidine 40 mg oral tablet) 1 tab(s) 40 Milligram By Mouth Daily at bedtime formoterol-mometasone (Dulera 200 mcg-5 mcg/inh inhalation aerosol) 2 puff(s) Inhalation 2 times a day Guaifenesin/Dextromethorphan (Robitussin DM Liquid) 10 Milliliter By Mouth Every 4 hours as needed Cough Losartan (losartan 50 mg oral tablet) 50 Milligram 1 tablet By Mouth Daily Montelukast (montelukast 10 mg oral tablet) 10 Milligram 1 tablet By Mouth Daily in PM Multivitamin With Minerals (Multivit Therapeutic/Minerals Tablet) 1 tab(s) By Mouth Daily Polyethylene Glycol 3350 (MiraLax Powder) 1 pack/packet 17 gram By Mouth Daily as needed Constipation Sotalol (sotalol 80 mg oral tablet) 80 Milligram 1 tablet By Mouth Daily Thiamine (thiamine 100 mg oral tablet) 100 Milligram 1 tablet By Mouth Daily Tiotropium (Spiriva HandiHaler 18 mcg Inhalation Capsule) 1 capsule Inhalation Daily Home Medications Medication Instructions Recorded Confirmed Last Taken Type albuterol sulfate 90 mcg/actuation 2 puff PO Q2-4H PRN 11/04/20 11/04/20 Unknown History aerosol inhaler atorvastatin 20 mg tablet 1 tab PO DAILY 11/04/20 11/04/20 Unknown History estradiol 0.5 mg tablet 1 tab PO MO 11/04/20 11/04/20 Unknown History famotidine 40 mg tablet 1 tab PO DAILY 11/04/20 11/04/20 Unknown History medroxyprogesterone 5 mg tablet 5 mg PO DAILY 11/04/20 11/04/20 Unknown History mesalamine 400 mg capsule (with 4 cap PO BID 11/04/20 11/04/20 Unknown History delayed release tablets inside) (Delzicol) mometasone-formoterol HFA 200 2 puff PO BID 11/04/20 11/04/20 Unknown History mcg-5 mcg/actuation aerosol inhaler (Dulera) montelukast 10 mg tablet 1 tab PO BEDTIME 11/04/20 11/04/20 Unknown History sotalol 80 mg tablet 1 tab PO DAILY 11/04/20 11/04/20 Unknown History theophylline 300 mg 1 tab PO DAILY 11/04/20 11/04/20 Unknown History tablet,extended release,12 hr tiotropium bromide 18 mcg capsule 1 cap INHALATION DAILY 11/04/20 11/04/20 Unknown History with inhalation device (Spiriva with HandiHaler) Physical Exam Vital Signs and Narrative: Vital Signs: Last Vital Signs Temp 96 F L 11/26/20 21:40 Pulse 60 11/26/20 22:07 Resp 22 H 11/26/20 21:40 BP 182/88 H 11/26/20 21:40 Pulse Ox 97 11/26/20 21:40 Body Mass Index 17.2 Results Labs CBC and Chem 7: 11/26/20 21:50 11/26/20 21:50 Labs: Laboratory Results - last 24 hr 11/26/20 11/26/20 11/26/20 21:50 21:50 21:50 MCV 94.8 MCH 31.3 MCHC 33.0 RDW 13.4 Plt Count 336 MPV 9.4 Immature Gran % (Auto) 0.7 H Neut % (Auto) 77.8 H Lymph % (Auto) 11.9 L [place] % (Auto) 9.0 Eos % (Auto) 0.4 Baso % (Auto) 0.2 Lymph # (Auto) 1.4 [place] # (Auto) 1.1 Eos # (Auto) 0.1 Baso # (Auto) 0.0 Abs Immat Gran (auto) 0.08 H Absolute Neuts (auto) 9.0 H Absolute Nucleated RBC 0.000 Nucleated RBC % (auto) 0.0 VBG pH VBG pCO2 VBG pO2 VBG HCO3 VBG O2 Saturation VBG Base Excess Anion Gap 12 Estim Creat Clear Calc 46.5 Estimated GFR > 60 Random Glucose 84 Lactic Acid 0.9 Calcium 9.2 Total Bilirubin 0.4 AST 43 H D ALT 43 H Alkaline Phosphatase 65 Troponin I High Sens B-Natriuretic Peptide Total Protein 6.3 L Albumin 3.5 COVID-19 (MU) COVID-19 [employer] Com 11/26/20 11/26/20 11/26/20 21:50 21:50 21:57 MCV MCH MCHC RDW Plt Count MPV Immature Gran % (Auto) Neut % (Auto) Lymph % (Auto) [place] % (Auto) Eos % (Auto) Baso % (Auto) Lymph # (Auto) [place] # (Auto) Eos # (Auto) Baso # (Auto) Abs Immat Gran (auto) Absolute Neuts (auto) Absolute Nucleated RBC Nucleated RBC % (auto) VBG pH 7.47 H VBG pCO2 38 VBG pO2 46 VBG HCO3 28 H VBG O2 Saturation 73.0 VBG Base Excess 4.7 Anion Gap Estim Creat Clear Calc Estimated GFR Random Glucose Lactic Acid Calcium Total Bilirubin AST ALT Alkaline Phosphatase Troponin I High Sens 6.7 B-Natriuretic Peptide 141 H Total Protein Albumin COVID-19 (MU) Negative COVID-19 Clin Com See Note Imaging Radiologist's Impressions: Impressions Chest X-Ray 11/26/20 21:21 IMPRESSION: Focal airspace opacities in the left lung base and perihilar region. Assessment and Plan (1) PNA (pneumonia): Status: Acute 80-year-old female with a past medical history of hypertension, hyperlipidemia, recent admission to the [facility] for MCA, in expressive aphasia, carotid artery disease presented the hospital with a chief complaint of cough. Noted to have pneumonia PNA: HCAP c/w Vanc and cefepime Suppl oxygen prn CTA chest pending. Hypertension: Continue home Losartan 50 mg daily. Asthma/COPD: Duo nebs as needed. ?PVCs: Patient on sotalol at home. EKG was normal sinus. 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 Per patient's sister aphasia gets worse she is stressed out. MRI Brain (11/06/20) Motion degraded, but demonstrating acute to early subacute infarct in the left MCA territory involving temporal and parietal lobes. ? Embolic. Patient was on estradiol. Which was discontinued Neurology recommendations at [facility]. Patient on aspirin, Plavix, Lipitor Carotid artery disease: MRA Head/Neck (11/06/20) Motion degraded. Nondominant right vertebral artery appears occluded. Possible right vertebral artery dissection with ?of a flap in the V3 segments. Approximately 50% stenosis of Right and ~60% stenosis of Left ICA VASC SURGERY 11/[address] Micheal Moscoso-->Planned for TCAR. DVT prophylaxis: Lovenox Code status: Full code. discussed with pts Sister Quality Stroke Does the patient have a stroke diagnosis?: No VTE Prior VTE?: No VTE Risk Level:: Medical - moderate - high VTE Device Contraindication: Treatment Not Indicated VTE Drug Contraindication: N/A - Med Ordered
--- NOTE | 2020-11-26 23:10 | PC.NURSE ---
PATIENT WAS CHANGE INTO HOSPITAL ATTIRE BY THIS PCT .
[2020-11-26] MEDS: cefEPime HCl 1 GM in 0.9 % Sodium Chloride 50 ML IV (23:14)
[2020-11-26 23:27] LABS: Prothrombin Time 11.5 SEC (9.9-13.0)
[2020-11-26 23:41] LABS: D Dimer 664 NG/ML
[2020-11-27] VITALS (11 sets, daily range): BP systolic 156–179; BP diastolic 68–91; PULSE 53–80; RESP 16–22; TEMP 36.7–37; O2SAT 91–99
[2020-11-27] MEDS: iohexoL 350 MG/ML 100 ML INFUS..BTL 65 ML IV (00:58)
[2020-11-27] MEDS: vancomycin HCL 1,000 MG in 0.9 % Sodium Chloride 250 ML 270 MG IV (01:43)
[2020-11-27] MEDS: 0.9 % Sodium Chloride 1,000 ML 999 ML IV (01:44)
[2020-11-27 03:04] LABS: Appearance Urine CLEAR; Color Urine YELLOW; Glucose Urine UA NEG (NEG); Leukocyte Esterase Urine NEG (NEG); Nitrite Urine NEG (NEG); Urine Blood NEG (NEG); Urine Ketones NEG (NEG); Urine Protein NEG (NEG-TRACE)
[2020-11-27 03:05] LABS: UACC Culture Trigger NO
[2020-11-27 06:22] LABS: MANUAL DIFF FLAG NO
[2020-11-27 06:24] LABS: Basophils Percent Auto 0.2 % (0-2); Eosinophils Absolute Auto 0.2 X10*3/uL (0.0-0.4); Eosinophils Percent Auto 1.6 % (0-4); Hematocrit 37.6 % (37-47); Hemoglobin 12.3 g/dl (12.0-16.0); Imm Gran Abs Auto 0.11 X10*3/uL (0.00-0.03); Imm Gran Pct Auto 0.9 % (0.0-0.4); Lymphocytes Absolute Auto 2.1 X10*3/uL (1.2-4.9); Lymphocytes Percent Auto 16.6 % (20-40); Mean Corpuscular HGB Conc 32.7 g/dl (31.0-35.0); Mean Corpuscular Hemoglobin 31.3 pg (27.0-33.0); Mean Corpuscular Volume 95.7 fL (80-98); Mean Platelet Volume 9.5 fL (9.4-12.3); Monocytes Absolute Auto 1.1 X10*3/uL (0.1-1.2); Monocytes Percent Auto 8.9 % (2-11); Neutrophils Percent Auto 71.8 % (45-73); Platelet Count 333 X10*3/uL (160-400); Red Blood Count 3.93 X10*6/uL (4.20-5.50); Red Cell Distribution Width 13.5 % (11.0-16.0); White Blood Count 12.5 X10*3/uL (4.8-10.8)
[2020-11-27 06:56] LABS: Anion Gap 13 (12-20); Blood Urea Nitrogen 15 mg/dL (9-16); Calcium 8.9 mg/dL (8.4-10.2); Carbon Dioxide 26 mmol/L (22-29); Chloride 106 mmol/L (96-108); Creatinine Clr Calc Pharmacy 51.8; Estimated Glomerular Filt Rate > 60; Glucose Random 76 mg/dL (60-115); Potassium 4.6 mmol/L (3.3-5.1); Sodium 140 mmol/L (135-145)
--- NOTE | 2020-11-27 07:11 | PHA.PROG ---
Admission Date/Time: November 26, 2020 22:37 Indication:RESP INF. Weight in k.359 kg Adjusted body weight in K KG Hinkle body weight in K.7 KG Serum Creatinine - Last 168 Hours 11/26/20 11/27/20 21:50 06:08 Creatinine 0.69 0.62 Estimated CrCl and GFR - Last 168 Hours 11/26/20 11/27/20 21:50 06:08 Estim Creat Clear Calc 46.5 51.8 Estimated GFR > 60 > 60 Vancomycin Loading Dose: 1000 MG 11/27/20 @0143 Current Vancomycin Dosing Regimen: 750 MG Q24H Vancomycin Monitoring using AUC goal of 400 - 600 range with trough as surrogate marker: PREDICTED AUC 453, PREDICTED TROUGH 14 Date and Time for next Vancomycin Level to be drawn: 11/29/20 @0000 (BEFORE 3RD DOSE) Pharmacist Comments on Vancomycin Plan: Vancomycin dosing will take advantage of [employer] as a clinical decision support tool that uses Bayesian modeling to calculate individual patient's pharmacokinetic parameters and forecast the patient's drug concentration time course with the target goal AUC 24 range of 400 - 600 mg/L/hr.
--- NOTE | 2020-11-27 08:07 | PHA.MEDREC ---
Pharmacy Consult ? Medication Reconciliation Pharmacy has completed the medication reconciliation Review Med rec from overnight. Medications match with claim history.
[2020-11-27] MEDS: Albuterol/Iprat 2.5/0.5MG 3 ML AMPUL.NEB INHALE ×4 (08:28→20:08)
[2020-11-27] MEDS: Sotalol HCL 80 MG TABLET PO (09:18)
[2020-11-27] MEDS: Mesalamine 400 MG CAP.DRTAB. 1600 MG PO ×2 (09:18→22:01)
[2020-11-27] MEDS: Theophylline Anhydrous ER 300 MG TAB.ER.12H PO (09:18)
[2020-11-27] MEDS: Atorvastatin Calcium 20 MG TABLET PO (09:21)
[2020-11-27] MEDS: Famotidine 20 MG TABLET 40 MG PO (09:21)
--- NOTE | 2020-11-27 10:57 | P.PNIM_ITS ---
Subjective Subjective Date of Service: 11/27/20 Interval History: cc: sob interval hsitory: still some sob, but better Cardiovascular Cardiovascular: Reports no additional cardiovascular complaints Respiratory Respiratory: Reports no additional respiratory complaints Physical Exam Vital Signs: Vital Signs: Last Vital Signs Temp 98.0 F 11/27/20 00:22 Pulse 71 11/27/20 09:18 Resp 16 11/27/20 06:10 BP 157/68 H 11/27/20 09:18 Pulse Ox 95 11/27/20 06:10 Body Mass Index 17.2 General: AO X 3, no acute distress, frail appearing Resp: some rhonchi, no accessory muscles used CVS: S1,S2,RRR GI: soft, non tender, non distended Neuro: motor grossly intact, alert, expressive aphasia Psych: appropriate affect, appropriate insight Objective Data Active Medications Acetaminophen (Acetaminophen 325 Mg Tablet) 650 mg PO Q6H PRN PRN Reason: Pain, Mild (Pain Scale 1-3) Albuterol Sulfate (Albuterol Sulfate 90 Mcg 8 Gm Inhaler) 2 puff INHALE Q2H PRN PRN Reason: Wheezing Albuterol/Ipratropium (Albuterol/Iprat 2.5/0.5mg 3 Ml Ampul.Neb) 3 ml INHALE RQ4H WHILE AWAKE [facility] Last Admin: 11/27/20 08:28 Dose: 3 ml Documented by: MARIAM Atorvastatin Calcium (Atorvastatin Calcium 20 Mg Tablet) 20 mg PO DAILY [facility] Last Admin: 11/27/20 09:21 Dose: 20 mg Documented by: MIAH Doxycycline Hyclate (Doxycycline Hyclate 100 Mg Tablet) 100 mg PO Q12H [facility] Last Admin: 11/27/20 10:39 Dose: 100 mg Documented by: MIAH Enoxaparin Sodium (Enoxaparin Sodium 40 Mg/0.4 Ml Syringe) 40 mg SUBCUT Q24H [facility] Last Admin: 11/27/20 01:28 Dose: Not Given Documented by: OTONIEL Non-Admin Reason: See Note Famotidine (Famotidine 20 Mg Tablet) 40 mg PO DAILY [facility] Last Admin: 11/27/20 09:21 Dose: 40 mg Documented by: MIAH Fluticasone/Vilanterol (Fluticasone/Vilanterol 200/25 Blst.W.Dev) 1 puff INHALE RDAILY [facility] Last Admin: 11/27/20 08:30 Dose: Not Given Documented by: MARIAM Non-Admin Reason: Med Not Available Cefepime HCl 1 gm/ Sodium (Chloride) 50 mls @ 100 mls/hr IV Q24H [facility] Melatonin (Melatonin 3 Mg Tablet) 6 mg PO BEDTIME PRN PRN Reason: Insomnia Mesalamine (Mesalamine 400 Mg Cap.Drtab.) 1,600 mg PO BID [facility] Last Admin: 11/27/20 09:18 Dose: 1,600 mg Documented by: MIAH Montelukast Sodium (Montelukast Sodium 10 Mg Tablet) 10 mg PO BEDTIME [facility] Prednisone (Prednisone 20 Mg Tablet) 40 mg PO DAILY [facility] Senna (Sennosides 8.6 Mg Tablet) 17.2 mg PO BEDTIME PRN PRN Reason: Constipation Sodium Chloride (0.9 % Sodium Chloride Flush 3 Ml Syringe) 3 ml IVFLUSH QSHIFT [facility] Last Admin: 11/27/20 10:46 Dose: Not Given Documented by: MIAH Non-Admin Reason: IV Running Sotalol HCl (Sotalol Hcl 80 Mg Tablet) 80 mg PO DAILY [facility] Last Admin: 11/27/20 09:18 Dose: 80 mg Documented by: MIAH Theophylline (Theophylline Anhydrous Er 300 Mg Tab.Er.12h) 300 mg PO DAILY [facility] Last Admin: 11/27/20 09:18 Dose: 300 mg Documented by: MIAH Tiotropium [place] (Tiotropium [place] 18 Mcg Cap.W.Dev) 1 puff INHALE RDAILY [facility] Labs CBC & Chem 7: 11/27/20 06:08 11/27/20 06:08 Labs: Laboratory Results - last 24 hr 11/26/20 11/26/20 11/26/20 21:50 21:50 21:50 MCV 94.8 MCH 31.3 MCHC 33.0 RDW 13.4 Plt Count 336 MPV 9.4 Immature Gran % (Auto) 0.7 H Neut % (Auto) 77.8 H Lymph % (Auto) 11.9 L [place] % (Auto) 9.0 Eos % (Auto) 0.4 Baso % (Auto) 0.2 Lymph # (Auto) 1.4 [place] # (Auto) 1.1 Eos # (Auto) 0.1 Baso # (Auto) 0.0 Abs Immat Gran (auto) 0.08 H Absolute Neuts (auto) 9.0 H Absolute Nucleated RBC 0.000 Nucleated RBC % (auto) 0.0 PT INR D-Dimer VBG pH VBG pCO2 VBG pO2 VBG HCO3 VBG O2 Saturation VBG Base Excess Anion Gap 12 Estim Creat Clear Calc 46.5 Estimated GFR > 60 Random Glucose 84 Lactic Acid 0.9 Calcium 9.2 Total Bilirubin 0.4 AST 43 H D ALT 43 H Alkaline Phosphatase 65 Troponin I High Sens B-Natriuretic Peptide Total Protein 6.3 L Albumin 3.5 Urine Color Urine Appearance Urine pH Ur Specific [place] Urine Protein Urine Glucose (UA) Urine Ketones Urine Blood Urine Nitrite Ur Leukocyte Esterase COVID-19 (MU) COVID-[employer] 11/26/20 11/26/20 11/26/20 21:50 21:50 21:57 MCV MCH MCHC RDW Plt Count MPV Immature Gran % (Auto) Neut % (Auto) Lymph % (Auto) [place] % (Auto) Eos % (Auto) Baso % (Auto) Lymph # (Auto) [place] # (Auto) Eos # (Auto) Baso # (Auto) Abs Immat Gran (auto) Absolute Neuts (auto) Absolute Nucleated RBC Nucleated RBC % (auto) PT INR D-Dimer VBG pH 7.47 H VBG pCO2 38 VBG pO2 46 VBG HCO3 28 H VBG O2 Saturation 73.0 VBG Base Excess 4.7 Anion Gap Estim Creat Clear Calc Estimated GFR Random Glucose Lactic Acid Calcium Total Bilirubin AST ALT Alkaline Phosphatase Troponin I High Sens 6.7 B-Natriuretic Peptide 141 H Total Protein Albumin Urine Color Urine Appearance Urine pH Ur Specific [place] Urine Protein Urine Glucose (UA) Urine Ketones Urine Blood Urine Nitrite Ur Leukocyte Esterase COVID-19 (MU) Negative COVID-19 [employer] See Note 11/26/20 11/27/20 11/27/20 22:55 02:54 06:08 MCV 95.7 MCH 31.3 MCHC 32.7 RDW 13.5 Plt Count 333 MPV 9.5 Immature Gran % (Auto) 0.9 H Neut % (Auto) 71.8 Lymph % (Auto) 16.6 L [place] % (Auto) 8.9 Eos % (Auto) 1.6 Baso % (Auto) 0.2 Lymph # (Auto) 2.1 [place] # (Auto) 1.1 Eos # (Auto) 0.2 Baso # (Auto) 0.0 Abs Immat Gran (auto) 0.11 H Absolute Neuts (auto) 9.0 H Absolute Nucleated RBC 0.000 Nucleated RBC % (auto) 0.0 PT 11.5 INR 1.0 D-Dimer 664 VBG pH VBG pCO2 VBG pO2 VBG HCO3 VBG O2 Saturation VBG Base Excess Anion Gap Estim Creat Clear Calc Estimated GFR Random Glucose Lactic Acid Calcium Total Bilirubin AST ALT Alkaline Phosphatase Troponin I High Sens B-Natriuretic Peptide Total Protein Albumin Urine Color YELLOW Urine Appearance CLEAR Urine pH 6.0 Ur Specific [place] 1.010 Urine Protein NEG Urine Glucose (UA) NEG Urine Ketones NEG Urine Blood NEG Urine Nitrite NEG Ur Leukocyte Esterase NEG COVID-19 (MU) COVID-19 [employer] [facility] 11/27/20 06:08 MCV MCH MCHC RDW Plt Count MPV Immature Gran % (Auto) Neut % (Auto) Lymph % (Auto) [place] % (Auto) Eos % (Auto) Baso % (Auto) Lymph # (Auto) [place] # (Auto) Eos # (Auto) Baso # (Auto) Abs Immat Gran (auto) Absolute Neuts (auto) Absolute Nucleated RBC Nucleated RBC % (auto) PT INR D-Dimer VBG pH VBG pCO2 VBG pO2 VBG HCO3 VBG O2 Saturation VBG Base Excess Anion Gap 13 Estim Creat Clear Calc 51.8 Estimated GFR > 60 Random Glucose 76 Lactic Acid Calcium 8.9 Total Bilirubin AST ALT Alkaline Phosphatase Troponin I High Sens B-Natriuretic Peptide Total Protein Albumin Urine Color Urine Appearance Urine pH Ur Specific [place] Urine Protein Urine Glucose (UA) Urine Ketones Urine Blood Urine Nitrite Ur Leukocyte Esterase COVID-19 (MU) COVID-19 Clin Com Assessment and Plan (1) Ulcerative colitis: Status: Acute (2) Sepsis: Status: Acute (3) PNA (pneumonia): Status: Acute Assessment and Plan: 80F presented with sob sepsis due to Left lower lobe pneumonia cefepime, doxy, follow up rvp, urine strep, legionella copd exacerbation prednisone, albuterol prn, singulair, theophylline, spiriva, inhaled steroid on sotalol unclear indication, denies history of afib, will continue for now ulcerative colitis stable mesalamine hld statin dvt prophylaxis - lovenox full code Quality Stroke Does the patient have a stroke diagnosis?: No VTE Prior VTE?: No VTE Risk Level:: Medical - moderate - high VTE Device Contraindication: Treatment Not Indicated VTE Drug Contraindication: N/A - Med Ordered
--- NOTE | 2020-11-27 20:19 | PC.NURSE ---
rn ASSUMED CARE AT 1900. pT ALERT AND CONFUSED, AT BASELINE MENTAL STATUS. PT DENIES PAIN. PT STATES SOB AT TIMES. RECEIVING RESPIRATORY TREATMENT AT THIS TIME. PT CLEAN DRY AND INTACT. PT REFUSED DINNER AND DID NOT WANT TO EAT. PT TO BE GOING UPSTAIRS. IV INTACT, VITALS STABLE. WILL CONTINUE TO MONITOR.
[2020-11-27] MEDS: cefEPime HCl 1 GM in 0.9 % Sodium Chloride 50 ML IV (21:56)
[2020-11-27] MEDS: Enoxaparin Sodium 40 MG/0.4 ML SYRINGE SUBCUT (21:58)
[2020-11-27] MEDS: Montelukast Sodium 10 MG TABLET PO (22:04)
[2020-11-27] MEDS: 0.9 % Sodium Chloride Flush 3 ML SYRINGE IVFLUSH (23:58)
[2020-11-28] VITALS (11 sets, daily range): BP systolic 114–164; BP diastolic 70–90; PULSE 68–102; RESP 18–20; TEMP 36.2–37.4; O2SAT 90–99
[2020-11-28 07:21] LABS: Hematocrit 42.3 % (37-47); Hemoglobin 13.9 g/dl (12.0-16.0); Mean Corpuscular HGB Conc 32.9 g/dl (31.0-35.0); Mean Corpuscular Hemoglobin 30.8 pg (27.0-33.0); Mean Corpuscular Volume 93.8 fL (80-98); Mean Platelet Volume 9.6 fL (9.4-12.3); Platelet Count 385 X10*3/uL (160-400); Red Blood Count 4.51 X10*6/uL (4.20-5.50); Red Cell Distribution Width 13.2 % (11.0-16.0); White Blood Count 13.6 X10*3/uL (4.8-10.8)
[2020-11-28 07:41] LABS: Anion Gap 15 (12-20); Blood Urea Nitrogen 13 mg/dL (9-16); Calcium 9.3 mg/dL (8.4-10.2); Carbon Dioxide 29 mmol/L (22-29); Chloride 98 mmol/L (96-108); Creatinine Clr Calc Pharmacy 44.5; Estimated Glomerular Filt Rate > 60; Glucose Fasting 79 mg/dL (60-99); Sodium 138 mmol/L (135-145)
[2020-11-28] MEDS: Famotidine 20 MG TABLET 40 MG PO (08:31)
[2020-11-28] MEDS: Theophylline Anhydrous ER 300 MG TAB.ER.12H PO (08:31)
[2020-11-28] MEDS: predniSONE 20 MG TABLET 40 MG PO (08:31)
[2020-11-28] MEDS: Atorvastatin Calcium 20 MG TABLET PO (08:31)
[2020-11-28] MEDS: Sotalol HCL 80 MG TABLET PO (08:31)
[2020-11-28] MEDS: Mesalamine 400 MG CAP.DRTAB. 1600 MG PO ×2 (08:32→20:33)
[2020-11-28] MEDS: 0.9 % Sodium Chloride Flush 3 ML SYRINGE IVFLUSH ×3 (08:32→20:45)
[2020-11-28] MEDS: Albuterol/Iprat 2.5/0.5MG 3 ML AMPUL.NEB INHALE ×4 (09:10→20:24)
[2020-11-28] MEDS: Fluticasone/Vilanterol 200/25 BLST.W.DEV 1 PUFF INHALE (09:33)
[2020-11-28 09:59] LABS: Adenovirus PCR Not Detected (Not Detect.); Bordetella parapertussis PCR Not Detected (Not Detect.); Bordetella pertussis PCR Not Detected (Not Detect.); Chlamydia pneumoniae PCR Not Detected (Not Detect.); Coronavirus 229E PCR Not Detected (Not Detect.); Coronavirus HKU1 PCR Not Detected (Not Detect.); Coronavirus NL63 PCR Not Detected (Not Detect.); Coronavirus OC43 PCR Not Detected (Not Detect.); Human metapneumovirus PCR Not Detected (Not Detect.); Influenza A PCR Not Detected (Not Detect.); Influenza B PCR Not Detected (Not Detect.); Mycoplasma pneumoniae PCR Not Detected (Not Detect.); Parainfluenza 1 PCR Not Detected (Not Detect.); Parainfluenza 2 PCR Not Detected (Not Detect.); Parainfluenza 3 PCR Not Detected (Not Detect.); Parainfluenza 4 PCR Not Detected (Not Detect.); RSV PCR Not Detected (Not Detect.); Rhino/Enterovirus PCR Not Detected (Not Detect.); SARS-CoV-2 PCR Not Detected (Not Detect.)
--- NOTE | 2020-11-28 10:41 | HO.PM.IMPN ---
Subjective Subjective Date of Service: 11/28/20 Interval History: cc: sob interval history: iomproving, Cardiovascular Cardiovascular: Reports no additional cardiovascular complaints Gastrointestinal Gastrointestinal: Reports no additional gastrointestinal complaints Physical Exam Vital Signs: Vital Signs: Last Vital Signs Temp 99.3 F 11/28/20 07:39 Pulse 73 11/28/20 09:15 Resp 18 11/28/20 07:39 BP 164/81 H 11/28/20 08:31 Pulse Ox 99 11/28/20 07:39 Body Mass Index 17.2 General: AO X 3, no acute distress, frail appearing Resp:? some rhonchi, no accessory muscles used CVS: S1,S2,RRR GI: soft, non tender, non distended Neuro:? motor grossly intact, alert, expressive aphasia Psych: appropriate affect, appropriate insight? Objective Data Active Medications Acetaminophen (Acetaminophen 325 Mg Tablet) 650 mg PO Q6H PRN PRN Reason: Pain, Mild (Pain Scale 1-3) Albuterol Sulfate (Albuterol Sulfate 90 Mcg 8 Gm Inhaler) 2 puff INHALE Q2H PRN PRN Reason: Wheezing Albuterol/Ipratropium (Albuterol/Iprat 2.5/0.5mg 3 Ml Ampul.Neb) 3 ml INHALE RQ4H WHILE AWAKE [facility] Last Admin: 11/28/20 09:10 Dose: 3 ml Documented by: ERNESTINA Albuterol/Ipratropium (Albuterol/Iprat 2.5/0.5mg 3 Ml Ampul.Neb) 3 ml INHALE RQ4H PRN PRN Reason: Shortness of Breath/Wheezing Atorvastatin Calcium (Atorvastatin Calcium 20 Mg Tablet) 20 mg PO DAILY [facility] Last Admin: 11/28/20 08:31 Dose: 20 mg Documented by: NAE Doxycycline Hyclate (Doxycycline Hyclate 100 Mg Tablet) 100 mg PO Q12H [facility] Last Admin: 11/28/20 08:31 Dose: 100 mg Documented by: NAE Enoxaparin Sodium (Enoxaparin Sodium 40 Mg/0.4 Ml Syringe) 40 mg SUBCUT Q24H [facility] Last Admin: 11/27/20 21:58 Dose: 40 mg Documented by: MERARI Famotidine (Famotidine 20 Mg Tablet) 40 mg PO DAILY [facility] Last Admin: 11/28/20 08:31 Dose: 40 mg Documented by: NAE Fluticasone/Vilanterol (Fluticasone/Vilanterol 200/25 Blst.W.Dev) 1 puff INHALE RDAILY [facility] Last Admin: 11/28/20 09:33 Dose: 1 puff Documented by: ERNESTINA Cefepime HCl 1 gm/ Sodium (Chloride) 50 mls @ 100 mls/hr IV Q24H [facility] Last Infusion: 11/27/20 22:50 Dose: 0 mls/hr Documented by: MERARI Melatonin (Melatonin 3 Mg Tablet) 6 mg PO BEDTIME PRN PRN Reason: Insomnia Mesalamine (Mesalamine 400 Mg Cap.Drtab.) 1,600 mg PO BID [facility] Last Admin: 11/28/20 08:32 Dose: 1,600 mg Documented by: NAE Montelukast Sodium (Montelukast Sodium 10 Mg Tablet) 10 mg PO BEDTIME [facility] Last Admin: 11/27/20 22:04 Dose: 10 mg Documented by: MERARI Prednisone (Prednisone 20 Mg Tablet) 40 mg PO DAILY [facility] Last Admin: 11/28/20 08:31 Dose: 40 mg Documented by: NAE Senna (Sennosides 8.6 Mg Tablet) 17.2 mg PO BEDTIME PRN PRN Reason: Constipation Sodium Chloride (0.9 % Sodium Chloride Flush 3 Ml Syringe) 3 ml IVFLUSH QSHIFT [facility] Last Admin: 11/28/20 08:32 Dose: 3 ml Documented by: NAE Sotalol HCl (Sotalol Hcl 80 Mg Tablet) 80 mg PO DAILY [facility] Last Admin: 11/28/20 08:31 Dose: 80 mg Documented by: NAE Theophylline (Theophylline Anhydrous Er 300 Mg Tab.Er.12h) 300 mg PO DAILY [facility] Last Admin: 11/28/20 08:31 Dose: 300 mg Documented by: NAE Tiotropium [place] (Tiotropium [place] 18 Mcg Cap.W.Dev) 1 puff INHALE RDAILY [facility] Last Admin: 11/28/20 09:33 Dose: 1 puff Documented by: ERNESTINA Labs CBC & Chem 7: 11/28/20 06:18 11/28/20 06:18 Labs: Laboratory Results - last 24 hr 11/28/20 11/28/20 06:18 06:18 MCV 93.8 MCH 30.8 MCHC 32.9 RDW 13.2 Plt Count 385 MPV 9.6 Absolute Nucleated RBC 0.000 Nucleated RBC % (auto) 0.0 Anion Gap 15 Estim Creat Clear Calc 44.5 Estimated GFR > 60 Fasting Glucose 79 Calcium 9.3 Microbiology Microbiology Results: Microbiology 11/26/20 23:15 Blood Culture - Preliminary Blood - Venous No growth after 24 hours. 11/26/20 22:55 Blood Culture - Preliminary Blood - Venous No growth after 24 hours. Assessment and Plan (1) Ulcerative colitis: Status: Acute (2) Sepsis: Status: Acute (3) PNA (pneumonia): Status: Acute Assessment and Plan: 80F presented with sob sepsis due to Left lower lobe pneumonia continue cefepime, doxy, follow up rvp, urine strep, legionella copd exacerbation prednisone, albuterol prn, singulair, theophylline, spiriva, inhaled steroid fraility PT eval on sotalol unclear indication, denies history of afib, will continue for now ulcerative colitis stable mesalamine hld statin dvt prophylaxis - lovenox full code Quality Stroke Does the patient have a stroke diagnosis?: No VTE Prior VTE?: No VTE Risk Level:: Medical - moderate - high VTE Device Contraindication: Treatment Not Indicated VTE Drug Contraindication: N/A - Med Ordered
--- NOTE | 2020-11-28 12:35 | PC.NURSE ---
Patient coughing with breakfast - patient states she coughs like this all the time and not only with meals. Continuos sat monitor applied for o2 titration - patient currently on Venti 15L/50% Spo2 93%. 1200 - O2 sat 58% on monitor with good pleth- this RN in room and noticed venti mask off face and patient coughing with food in her mouth and face very flushed. Venti mask applied and o2 sat gradually back up to 90%. Coughing subsided and food removed from bedside. MD notified and patient placed NPO pending speech eval tomorrow. Unasyn 3g IV q6hr ordered.
--- NOTE | 2020-11-28 15:09 | MHC.CM.PN ---
PT REPORTS SHE LIVES ALONE AND IS INDEPENDENT WITH SELF CARE PT DENIES HAVING IN HOME SERVICES OR DME PT REPORTS SHE IS WORRIED ABOUT HER CATS AND WILL BE CALLING HER SISTER PT REPORTS HER PCP IS NATTY STEIN CURRENTLY DC PLAN IS TBD. PT REPORTS SHE WANTS TO RETURN HOME WITH NO SERVICES
[2020-11-28] MEDS: Montelukast Sodium 10 MG TABLET PO (20:33)
[2020-11-28] MEDS: cefEPime HCl 1 GM in 0.9 % Sodium Chloride 50 ML IV (20:33)
[2020-11-28] MEDS: Enoxaparin Sodium 40 MG/0.4 ML SYRINGE SUBCUT (22:16)
[2020-11-29 03:42] VITALS: BP 142/68; PULSE 98; RESP 18; TEMP 36.6; O2SAT 93
[2020-11-29 07:55] VITALS: BP 133/82; PULSE 108; RESP 22; TEMP 37.1; O2SAT 94
[2020-11-29 08:50] VITALS: BP 133/82; PULSE 108
[2020-11-29] MEDS: Theophylline Anhydrous ER 300 MG TAB.ER.12H PO (08:50)
[2020-11-29] MEDS: 0.9 % Sodium Chloride Flush 3 ML SYRINGE IVFLUSH (08:50)
[2020-11-29] MEDS: Famotidine 20 MG TABLET 40 MG PO (08:50)
[2020-11-29] MEDS: Atorvastatin Calcium 20 MG TABLET PO (08:50)
[2020-11-29] MEDS: Mesalamine 400 MG CAP.DRTAB. 1600 MG PO (08:50)
[2020-11-29] MEDS: predniSONE 20 MG TABLET 40 MG PO (08:50)
[2020-11-29] MEDS: Sotalol HCL 80 MG TABLET PO (08:50)
[2020-11-29 10:31] VITALS: BP 133/82; PULSE 108; O2SAT 95
[2020-11-29 11:39] VITALS: BP 102/67; PULSE 76; RESP 20; TEMP 37.2; O2SAT 92
[2020-11-29] MEDS: Albuterol/Iprat 2.5/0.5MG 3 ML AMPUL.NEB INHALE ×2 (11:39→15:20)
--- NOTE | 2020-11-29 13:23 | P.DS_ITS ---
DS: Providers Provider Date of Service: 11/29/20 Date of admission: 11/26/20 22:37 Primary care physician: Unknown Physician DS: Diagnosis Discharge Diagnosis (1) Ulcerative colitis: Status: Acute (2) Sepsis: Status: Acute (3) PNA (pneumonia): Status: Acute (4) COPD (chronic obstructive pulmonary disease): Status: Acute (5) H/O ischemic left MCA stroke: Status: Acute DS: Summary Hospital Course Hospital Course: patient was admitted for sepsis due to left lower lobe pnuemonia complicated by copd exacerbation. she was treated with cefepime, doxyclycline, steroids, and inhaled bronchodilators. symptoms eventually improved close to patient new post cva baseline. she is frail due to recent CVA and severe COPD, therefore, plan is to dicscharge to SNF for STR, continue 5 more days of ceftin and prednisone, then follow up with vascular surgery for possible CEA. Time Spent with Patient Time attestation: Total time spent providing and/or coordinating discharge services: Discharge coordination time: Greater than 30 minutes Quality: Stroke Does the patient have a stroke diagnosis?: No Physical Exam Vital Signs: Vital Signs: Last Vital Signs Temp 99.0 F 11/29/20 11:39 Pulse 76 11/29/20 11:39 Resp 20 11/29/20 11:39 BP 102/67 11/29/20 11:39 Pulse Ox 92 11/29/20 11:39 Body Mass Index 17.2 DS: Data Data Completed and Pending Labs on day of discharge: Preliminary micro results at discharge 11/26/20 23:15 Blood Culture - Preliminary Blood - Venous No growth after 48 hours. 11/26/20 22:55 Blood Culture - Preliminary Blood - Venous No growth after 48 hours. Discharge Plan Discharge Patient Disposition: Xfer SNF Discharge Diagnosis: pna Referrals: Physician,Unknown J [Primary Care Provider] - 1 Week Discharge Medications: New cefuroxime axetil 500 mg tablet 500 mg PO BID Qty: 10 RF: 0 prednisone 20 mg Tablet 40 mg PO DAILY 5 Days Qty: 0 RF: 0 aspirin 81 mg tablet,delayed release (DR/EC) 81 mg PO DAILY Qty: 30 RF: 0 Continued atorvastatin 20 mg tablet 1 tab PO DAILY RF: 0 sotalol 80 mg tablet 1 tab PO DAILY RF: 0 famotidine 40 mg tablet 1 tab PO DAILY RF: 0 theophylline 300 mg tablet extended release 12 hr 1 tab PO DAILY RF: 0 montelukast 10 mg tablet 1 tab PO BEDTIME RF: 0 albuterol sulfate 90 mcg/actuation HFA aerosol inhaler 2 puff PO Q2-4H PRN (Reason: Wheezing) RF: 0 Spiriva with HandiHaler 18 mcg capsule, w/inhalation device 1 cap inhalation DAILY RF: 0 Dulera 200-5 mcg/actuation HFA aerosol inhaler 2 puff PO BID RF: 0 mesalamine [Delzicol] 400 mg capsule (with del rel tablets) 4 cap PO BID RF: 0 Discontinued medroxyprogesterone 5 mg tablet 5 mg PO DAILY RF: 0 estradiol 0.5 mg tablet 1 tab PO MO RF: 0 Discharge Orders: Discharge Order (Routine); Ordered 11/29/20 Ordered By: Pepe Santana Diet: advance to usual diet Activity on Discharge: As tolerated Stand Alone Forms: Patient Portal Discharge page Care Plan Goals: recovery Health Concerns: copd, pneumonia, recent cva Plan of Treatment: cva- asa, statin, follow up with vascular surgery, continue rehab and speech therapy, for pneumonia - 5 more days of ceftin, for copd - 5 more days pred nisone Assessment: see above
--- NOTE | 2020-11-29 14:05 | MHC.CM.PN ---
IMM 11/29/20 Female 80 DX PNA She is discharged today. She is returning to [facility] for STR. She will transport via [facility]. DC info has been sent to the facility. A negative Covid result 11/28/20 has been sent as well. He sister is aware of discharge to [facility] today. A VM was left re transport time. 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
[2020-11-29 15:34] VITALS: BP 106/55; PULSE 70; RESP 19; TEMP 37.1; O2SAT 94
[2020-12-01 18:42] LABS: Strep Pneumo Ag urine Not Detected (Not Detected)
[2020-12-04 10:27] LABS: Legionella Ag Urine Not Detected (Not Detected)
== END 2020-11-29 16:23 | disposition skilled nursing facility (03) | DRG 871 ==
LOC: HO.ED 22:57 → HO.EDOVER 23:55 → HO.IMC 11-27 19:48
PROVIDERS: Admitting Provider Hospitalist; Emergency Provider Student in an Organized Health Care Education/Training Program; Visit Provider Internal Medicine
DX: A41.9 Sepsis, unspecified organism (principal); J18.9 Pneumonia, unspecified organism; K51.90 Ulcerative colitis, unspecified, without complications; I69.820 Aphasia following other cerebrovascular disease; I65.23 Occlusion and stenosis of bilateral carotid arteries; E78.5 Hyperlipidemia, unspecified; Z20.822 Contact with and (suspected) exposure to COVID-19; I48.91 Unspecified atrial fibrillation; Z79.82 Long term (current) use of aspirin; Z79.899 Other long term (current) drug therapy
CPT/HCPCS: 36415; 71045; 71275; 80048; 80053; 81003; 82803; 83605; 83880; 84484; 85025; 85027; 85379; 85610; 87040; 87449; 87633; 87635; 87899; 93005; 94640; 96361; 96374; 97110; 97116; 97162; 99285; J0692; J1650; J3370; Q9967

== ENCOUNTER 2021-07-07 09:18 | Outpatient (REF) | payer MEDICARE, BC, SELFPAY ==
[2021-07-07 09:40] LABS: MANUAL DIFF FLAG NO
[2021-07-07 10:19] LABS: Basophils Percent Auto 0.5 % (0-2); Eosinophils Absolute Auto 0.2 X10*3/uL (0.0-0.4); Eosinophils Percent Auto 3.1 % (0-4); Hematocrit 41.8 % (37.0-47.0); Hemoglobin 13.4 g/dl (12.0-16.0); Imm Gran Abs Auto 0.02 X10*3/uL (0.00-0.03); Imm Gran Pct Auto 0.3 % (0.0-0.4); Lymphocytes Absolute Auto 2.4 X10*3/uL (1.2-4.9); Lymphocytes Percent Auto 30.9 % (20-40); Mean Corpuscular HGB Conc 32.1 g/dl (31.0-35.0); Mean Corpuscular Hemoglobin 30.5 pg (27.0-33.0); Mean Platelet Volume 9.8 fL (9.4-12.3); Monocytes Absolute Auto 0.9 X10*3/uL (0.1-1.2); Monocytes Percent Auto 12.1 % (2-11); Neutrophils Absolute Auto 4.1 x10*3/uL (2.0-8.3); Neutrophils Percent Auto 53.1 % (45-73); Platelet Count 303 X10*3/uL (160-400); Red Cell Distribution Width 13.2 % (11.0-16.0); White Blood Count 7.8 X10*3/uL (4.8-10.8)
[2021-07-07 10:46] LABS: Alanine Aminotransferase 10 U/L (0-31); Albumin Level 3.9 g/dL (3.5-5.0); Alkaline Phosphatase 70 U/L (39-117); Anion Gap 14 (12-20); Aspartate Amino Transferase 17 U/L (5-31); Bilirubin Total 0.5 mg/dL (0.0-1.0); Blood Urea Nitrogen 17 mg/dL (9-16); Calcium 9.6 mg/dL (8.4-10.2); Carbon Dioxide 25 mmol/L (22-29); Chloride 108 mmol/L (96-108); Cholesterol 150 mg/dL; Estimated Glomerular Filt Rate > 60; Glucose Fasting 81 mg/dL (60-99); HDL Cholesterol 47 mg/dL; LDL Cholesterol Calculated 91 mg/dl; Sodium 143 mmol/L (135-145); Triglycerides 60 mg/dL
== END 2021-07-07 09:19 | disposition home or self-care (01) ==
LOC: HO.LAB 09:18
PROVIDERS: PCP Internal Medicine Medical Oncology; Visit Provider Internal Medicine Medical Oncology
DX: I10 Essential (primary) hypertension (principal); E78.2 Mixed hyperlipidemia
CPT/HCPCS: 36415; 80053; 80061; 85025

== ENCOUNTER 2021-10-10 13:15 | Outpatient (RCR) | payer MEDICARE, BC, SELFPAY ==
--- NOTE | 2022-02-10 17:19 | MHC.SP.ADU ---
Addendum entered and electronically signed by Maryanne Lazcano MA, CCC-[facility] 02/10/22 17:34: As a clinical supervisor firearms, I have reviewed and agree with the content of this report. Original Note: Referring provider: Bola Mclaughlin MD Reason for Referral: Stroke and aphasia Type of Treatment: 38754 Evaluation Speech Sound Production WITH Language Date of Plan of Treatment: 10/10/21 Onset of Symptoms/Illness: 10/13/20 Date Treatment Started: 10/10/21 Medical Diagnosis: Expressive aphasia, COPD, Hypertention, Hyperlipidemia, Hx CVA, Bilateral carotid artery stenosis, internal hemorrhoids, esophageal ring, asthma, hiatal hernia, basal cell carcinoma right shoulder, emphysema, tobacco dependence Primary Speech Language Diagnosis: R47.01 Aphasia Secondary Speech Language Diagnosis: R41.841 Cognitive communication disorder History Estrellita Villeda 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 Estrellita was accompanied to this assessment on 10/10/21 by her sister Evelia. Following the stroke, Estrlelita was reportedly discharged to [facility] where she had Speech Therapy. Since then, Estrellita reports being on waiting lists for speech therapy services. Estrellita reported concerns with memory, ?choosing the right word,? and ?answering questions incorrectly.? Estrellita?s sister reported a possible second stroke in March 2021. Medical History: Expressive aphasia, COPD, Hypertention, Hyperlipidemia, Hx CVA, Bilateral carotid artery stenosis, internal hemorrhoids, esophageal ring, asthma, hiatal hernia, basal cell carcinoma right shoulder, emphysema, tobacco dependence Respiratory Needs: Room Air Patient Orientation: Alert & Oriented x 4 Reported Speech, Language, Cognition difficulties: Attention Memory Cognition Speaking Problem Solving Assessment Speech Production: Aphasic Tests of Motor Speech: Diadochokinesis: Assessment of Motor Speech Alternating motion rate (AMR) and sequential motion rate (SMR) were assessed. Estrellita was able to produce repetitions of the sounds /p/ and /t/ within functional limits and mildly decreased speed with /k/. When prompted to put all sounds together to evaluate SMR (puh tuh kuh, puh tuh kuh, puh tuh kuh), Estrellita repeated ?coretta coretta kah? several times with very severely reduced speed. Tests of Speech & Language: BDAE BNT Clinical Impression: Impaired Estrellita was administered the [place] Diagnostic Aphasia Evaluation (BDAE) followed by the Cognitive Linguistic Quick Test (CLQT). [place] Diagnostic Aphasia Evaluation (BDAE): The BDAE is designed to diagnose the presence and type of aphasia. Estrellita was administered several subtests from the [place] Diagnostic Aphasia Evaluation (BDAE). The subtests administered with notes on Urban performance are summarized below: Picture Description: In this subtest, the patient is shown the ?Cookie Theft? picture and asked to describe the picture. Estrellita presented with some unintelligible speech, word finding errors, and unilateral neglect. The majority of Estrellita?s descriptions focused on details seen on the left side of image. Throughout the task, Estrellita reported difficulty seeing the picture. Estrellita presented with full sentences filled with intermittent longer 10-15 second pauses between thoughts. She presented with phonemic paraphasias (?playing? for paying, ?puerto rican? for lunch), semantic paraphasias (daughter vs. sister), pronoun errors (he reaching her hand), and dysfluencies (sound repetitions, interjections). Estrellita was observed to self-correct some of her paraphasias. In the beauty specialist below Estrellita describes someone ?eating a sandwich.? However, the girl is holding her pointer finger near her mouth and no person in the picture is eating. Estrellita?s reported difficulty seeing the image and some inaccurate descriptions may be reflective of a visual deficit. 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 Kids gonna fall off of his chair thing and his preston? his? his sister, she looks like she?s eating a sandwich. Oh. And he r-reaching her hand to what?s a ch-panda? is it a k-v-k-c-cookie jar. And he?s already grabbed something down. And um? I can?t see? oh? he?s got another [10 second pause]?I can?t see what this is? is it a k-plate? Is that a plate for cookies? I guess that?s? putting a bunch a?[unintelligible] we would say they?re in the kitchen? he looks like, she looks like. I can?t see well. Is it [unintelligible] She has um. They look like moccasins. Shoes. And she has socks on. And he?s? I think he?s got his sneakers but I?m not sure. Maybe [unintelligible utterance]. But he?s wearing shorts too. He?s wearing shorts so it?s probably summer time. [15 second pause] There?s a handle on the thing. It?s on the right. Mother is drying dishes. It?s probably uh they?re probably having puerto rican? lunch. What?s this there? I can?t see what this is. It?s hard to see this picture. Oh, oh is it.. oh, the water is overflowing. She?s not playing attention to the water. It?s going into the kitchen on the floor, oh dear! Um, she?s busy drying her dishes. Her s? her sink is overflowing. There?s an apron. Um. Outside? outside there?s all kind of stuff.? Auditory Comprehension: -When given a word orally, Estrellita identified the correct word in 16 out of 16 items by pointing to the correct picture. Estrellita presented with a delay in response when asked to identify both ?ant? and ?tulip.? Responses after a short time delay (>5 seconds) were scored with 1/2 point while immediate responses (<5 seconds) were scored with 1 point. Incorrect test items were scored 0. Estrellita scored a 15/16 on this subtest. -When given 2-step commands verbally, Estrellita followed 2 out of 3 commands accurately. When prompted to, ?Tap each shoulder twice with two fingers, keeping your eyes shut,? Estrellita was observed to tap her left shoulder two times with both hands. Estrellita was read the prompt for a second time and reported ?I can?t do it.? -Estrellita answered 3 out of 4 general auditory comprehension questions accurately. When prompted, ?Is a hammer good for cutting wood?? Estrellita answered ?Not usually, but I suppose there are some ways you could probably do it.? -After being read a short passage aloud, Estrellita was asked 4 comprehension questions to which she answered correctly. Oral expression: -Estrellita did not demonstrate difficulty with automatic sequencing tasks including counting and reciting days of the week. Estrellita scored 4/4 on this task. Repetition: -Estrellita demonstrated minimal difficulty when prompted to repeat single words of increasing syllables and difficulty, short phrases, and short sentences (3-9 words). When prompted to repeat ?[employer],? Estrellita initially responded with a phonemic paraphasia stating ?[employer] J[employer]ism? then self-corrected. Estrellita scored 7/7 on this tasks. Responsive naming: -Estrellita demonstrated no difficulty on responsive naming tasks (i.e. ?What do we tell time with??). This indicates that semantic cues may assist with Etsrellita?s word finding. Estrellita scored 10 out of 10 on the responsive naming task. Confrontational naming: -Estrellita demonstrated mild to moderate difficulty in a confrontational naming task in which she was presented with various line drawings of images. Estrellita was observed to describe images via circumlocution without using the target word, identify a form of the target word, and use phonemic paraphasias (i.e. ?hammer? for ?hammock?) and nonsensical speech. When presented with an image of a [place], Estrellita responded, ?Oh a? the slapper? the one that slaps.? When shown a cactus, Estrellita responded, ?In the? sac? cacti is the plural.? When shown an artist?s palette, Estrellita responded, ?Oh the um? The artist is putting toge-? Mixing up his colors to put things with the red and the white and the dark.? Estrellita benefitted from cues throughout the task, particularly forced choice and phonemic cues. For example, when provided with the cue ?an artist?s pa__,? she immediately produced the word ?palette.? Estrellita scored 11 out of 15 on the confrontational naming task. Reading: -Estrlelita was able to match letters across cases and scripts, demonstrating basic symbol recognition. Estrellita scored 4/4 on this task. -Estrellita was able to match numbers to fingers and dot patterns, receiving a score of 4/4 on this task. -Estrellita was able to match pictures to written words, receiving a score of 4/4 on this task. -Estrellita was able to read words aloud with 100% accuracy, however Estrellita did require the clinician to rewrite the words to present them in a larger size. Estrellita scored 15/15 on this task. -Estrellita read aloud sentences of increasing length and complexity then answered written comprehension questions after a short delay. Estrellita read aloud sentences correctly in 4 out of 5 trials and answered comprehension questions correctly in 3/3 trials. Estrellita attempted four times to read the word ?minutes? before giving up and moving on. -Estrellita was asked to read aloud sentences and to select the correct word or phrase to complete the sentence from a choice of 4 written words. Estrellita received a 4/4 on this task. Writing: -Estrellita was able to print and sign her name as well as write letters, numbers and words that were dictated to her. -Estrellita was able to copy 8 out of 9 words of a sentence presented visually to patient in all capital letters ?THE QUICK BROWN BARRIOS JUMPS OVER THE LAZY DOG.? Estrellita did not include the word ?barrios? in her copy. Tests of Cognition: CLQT Clinical Impression: Impaired Cognitive Linguistic Quick Test (CLQT) The Cognitive Linguistic Quick Test (CLQT) is designed to measure cognitive-linguistic functioning in five cognitive domains: attention, memory, language, executive functioning, and visuospatial skills. It is intended for use for adults with acquired neurological dysfunction ages 18 to 89 years old. The following subtests of the CLQT were administered during this evaluation: Personal Facts: This subtest is designed to episodic memory, word retrieval, language comprehension, and language production. In this subtest the patient is asked questions regarding personal facts including birthdate, location, age, and address. Estrellita presented with no difficulty answering these questions, scoring 8 out of 8 on this subtest. Clock drawing: This subtest is designed to be a screening tool for neurological dysfunction in its assessment of various cognitive domains including sustained attention, memory, executive functions, language, and visuospatial skills. During this task, the patient is asked given an image of a kar[place] and asked to draw a clock with hands set to ?ten minutes after eleven.? Estrellita?s drawing was unremarkable with the exception of the location of the hands. The clock?s hands emanate from the center of karuk, however in the top section of the karuk close to the border, below the number 12. Estrellita received a score of 12 out of 13 on this subtest. Story Retelling: In this subtest the patient is asked to retell a short 4 sentence story that is read aloud to the patient by the clinician. This task is designed to measure attention, verbal working memory, and language (language comprehension and verbal production). During this task, Estrellita was able to recall 7 of 18 pradhan details noted upon recall. The story retell task was followed by a short auditory comprehension task in which the patient was asked yes/no questions about the story. In this recognition task, Estrellita answered 6 out of 6 questions correctly. This demonstrates that the use of memory strategies may support Estrellita?s immediate and delayed memory. Estrellita received an overall score of 5 out of 10 on the Story Retelling subtest. Symbol trails: This subtest is designed to measure attention, executive functions (planning, working memory, mental flexibility), and visuospatial skills. The ultimate goal of this task is for the client to connect lines alternating between triangles and circles in a particular pattern as the shapes increase in size. The task begins with two trials. In the first trial the client is presented with circles of varying sizes and instructed to draw lines from the smallest to largest. Estrellita was observed to connect lines from the smallest karuk to each of the other circles. In the second trial task, the patient is presented with circles and triangles and instructed to connect all the shapes, alternating between karuk and triangle. In this trial, Estrellita was observed to draw two lines coming from the same kar[place] to different triangles. Estrellita reported not being able to perform the task, and therefore the subtest was discontinued. Estrellita scored 0 out of 10 on this subtest as she was not able to complete the two trial tasks. Generative Naming: This subtest is designed to measure working memory, language, and executive functioning. This subtest is divided into two tasks. First, the client is asked to name as many animals as they can in 1 minute. Second, the client is asked to name as many words that begin with the letter ?m? in 1 minute. During the second task, the client is instructed not to use proper nouns or ?the same word with a different ending? (i.e. mop, mopped, mopping). During the first task, Estrellita demonstrated a decreasing number of responses over each 15 second segment. Estrellita named 7 animals in the first 15 seconds and an additional 5 animals in the following 45 seconds. Perseveration was observed in both tasks. She received a perseveration ratio of 0.09, in which a ratio of 0.08 or greater ?indicates notable perseveration, indicative of brain damage.? Estrellita received a score of 4 out of 9 on the Generative Naming subtest. Design Memory: This subtest is designed to measure an individual?s immediate and working visual memory without much demand on the domain of language. The client is presented with two designs for 20 seconds then once the stimulus is removed, they are asked to select the two designs out of a vertical field of 6 designs. Estrellita selected 4 out of 6 designs correctly, scoring 4 out of 6 on this subtest. Mazes: This subtest is designed to assess executive function, attention, and visuospatial skills. In this task the patient is asked to complete two mazes of increasing complexity in a particular time frame. Estrellita successfully completed the shorter, simpler maze in one minute and was not able to complete the longer, more complex maze in two minutes. In the shorter maze, Estrellita was observed to stop her lines each time she came to a crossroad in the maze, then restart her line again. Estrellita crossed the wall of the maze three times possibly demonstrating a difficulty with fine motor skills. Estrellita scored 4 out of 8 on this subtest. Design Generation: This subtest is designed to measure the cognitive domains of attention, executive functions and visuospatial skills without much demand on the domain of language. The client was given directions to connect 4 dots using four lines and provided with two examples. The client was given 3 minutes to make as many different designs as possible without copying the example designs. Estrellita demonstrated difficulty and frustration with this task, stating, ?Usually I can do something like this.? Estrellita made 6 designs which included a copy of one of the example designs, repetitions of her own designs, and designs with only 3 lines. Estrellita scored 2 out of 13 on this subtest. When comparing Estrellita?s performance of various subtests of the CLQT to individuals ages 70-89 years old, Estrellita scored below average in two subtests: Design Generation and Symbol Trails. Both of these subtests measure similar cognitive skills in the areas of attention, executive functioning, and visuospatial skills. Impressions and Recommendations Summary: Based on the results of this evaluation, Estrellita presents with a mild-moderate expressive aphasia and a moderate cognitive-linguistic impairment. The presence of aphasia is marked by word finding errors and paraphasias. The presence of cognitive-linguistic impairment is marked by difficulties in the areas of attention, executive functioning, and visuospatial skills. Estrellita presented with difficulty with visual tasks throughout the assessment. Estrellita benefitted from cueing to assist with word finding, specifically phonemic and semantic cues. As time went on during the evaluation, Estrellita became increasingly more fatigued. At times, midtask, Estrellita would begin to close her eyes and drift off. Per sister report, this is not atypical post stroke behavior for this patient. Patient presented with some articulation errors and would benefit from further assessment of motor speech to rule in/out apraxia of speech or dysarthria. Recommendation for Speech Therapy: Outpatient Speech Therapy Frequency/Duration: 1x/week for 12 weeks Time to Reassess: 6 months It is recommended for Estrellita to participate in 1:1 speech and language therapy 1X weekly for 12 weeks in the outpatient setting. The following goals are recommended: Snf Goals: LTG 1 Estrellita will improve expressive and receptive language skills. LTG 2 Estrellita will improve performance in cognitive domains of attention, executive functioning, and visuospatial skills. Short Term Goals: STG 1.1 Estrellita will name functional items with moderate support (i.e. phonemic cues) with 80% accuracy during confrontational naming tasks. STG 1.2 Estrellita will follow verbal or written 2-step command with no more than 1 repetition when provided with gestural support with 80% accuracy. STG 2.1 Estrellita will sustain attention to a 5 minute task in 80% of trials given minimal to moderate cues to attend STG 2.2 Estrellita will listen to short paragraph and recall significant facts with 80% accuracy when provided with moderate cueing and prompting. Recommended Referrals to be Discussed with Primary Care Provider: Recommend referral for occupational therapy due to patient?s observed difficulty with fine motor control. Recommend referral for neurology consultation due to patient's tendency to close eyes and drift off during evaluation. Patient Education: Completed: Yes Patient/Caregiver Education: Described Results of Evaluation Patient expressed understanding of evaluation Family/Caregivers expressed understanding of results It was a pleasure to meet and work with Estrellita. If you have any questions about the contents of this report, do not hesitate to contact me at [phone] or [email or web address] Clinican/Clinical Fellow: Yes: Em Mcleod M.A., CF-[facility] Supervisory Statement: Yes Speech Language Pathologist: Maryanne Lazcano M.A., CCC-[facility]
== END 2022-02-27 15:07 | disposition still patient (30) ==
LOC: HO.SH 13:15
PROVIDERS: Visit Provider Internal Medicine Medical Oncology
DX: I63.512 Cerebral infarction due to unspecified occlusion or stenosis of left middle cerebral artery (principal); R74.01 Elevation of levels of liver transaminase levels
CPT/HCPCS: 92523

== ENCOUNTER 2021-11-10 20:33 | Inpatient (IN) | payer MEDICARE, BC, SELFPAY ==
--- NOTE | ~2021-11-10 | CT_ITS ---
EXAMINATION: CT ANGIOGRAM HEAD CT ANGIOGRAM NECK CLINICAL INFORMATION: Reason for Exam LUE weakness COMPARISON: Same day noncontrast head CT, CTA head and neck 11/04/2020 TECHNIQUE: Initial noncontrast field scout imaging of the head and neck was performed. Comparison is made with noncontrast head CT from earlier today. Test bolus sequences followed by intravenous administration 70 mL of Omnipaque 350. Helical imaging was performed in the axial plane from the aortic arch to the skull vertex. Delayed postcontrast imaging of the head was also performed. The data was processed at the systems technologist's workstation for generation of MIP sequences. Angled MIPs and volume rendered reformatted images were also generated at an offline 3D workstation. Stenoses are assessed in accordance with NASCET criteria unless otherwise indicated. DLP: 1438 mGy-cm This CT examination was performed using dose optimization techniques as appropriate, variously including the following: *Automated exposure control. *Adjustment of mA and/or kV according to patient size (this includes techniques or standardized protocols for targeted exams where dose is matched to indication/reason for exam; i.e. extremities or head). *Use of iterative reconstruction technique. FINDINGS: CT Head: There is no evidence of acute intracranial hemorrhage or edematous territorial infarction. Chronic left MCA territory infarct involving the left parietal lobe and small chronic infarct in the left lateral occipital lobe.. There is no abnormal attenuation within the brain parenchyma. Nieves-white matter differentiation is preserved. Proportional prominence of the ventricles and sulcal spaces. No evidence for obstructive hydrocephalus. No abnormal mass effect or midline shift. No extra-axial fluid collections. No pathologic intra-axial enhancement or regional oligemia. Left paramedian frontal lobe developmental venous anomaly. No acute soft tissue or osseous abnormalities. CT Neck: The thyroid gland and remaining cervical soft tissues are within normal limits. Moderate to severe multilevel cervical spondylosis. CT Upper Chest: Biapical pulmonary scarring. Azygos fissure is noted. Neck CTA: Aortic Arch: Normal contour and caliber. Classic 3 vessel branching pattern of the aortic arch. Great Vessel Origins: No significant stenosis of the branch origins. Right Common Carotid Artery: No focal stenosis or occlusion. Cervical Right Internal Carotid Artery: Calcific atherosclerotic disease of the carotid bulb and proximal internal carotid artery causing approximately 50% stenosis, stable from prior. Left Common Carotid Artery: No focal stenosis or occlusion. Cervical Left Internal Carotid Artery: Mild calcific atherosclerotic disease of the carotid bulb and proximal internal carotid artery without flow-limiting stenosis. Cervical Right Vertebral Artery: Stable severe stenosis of the origin and proximal right V1 segment. The V2 segment is widely patent. Redemonstration of sequela of chronic dissection involving the left V3 segment extending intracranially, stable in appearance compared to prior Cervical Left Vertebral Artery: Dominant. No focal stenosis or occlusion. Brain CTA: Intracranial Internal Carotid Arteries: Calcific atherosclerotic disease of the intracranial internal carotid arteries without occlusion or flow-limiting stenosis. Right Anterior Cerebral Artery: Normal A1 segment. Stable focal high-grade stenosis of the proximal right pericallosal artery (series 6 image 176) with normal distal filling. Left Anterior Cerebral Artery: Normal A1 segment. Normal opacification of the distal ARPIT segments. Anterior Communicating Artery: Normal. Right Middle Cerebral Artery: Normal M1 segment of the MCA without focal stenosis or occlusion. Normal arborization of the distal segments. Left Middle Cerebral Artery: Normal M1 segment of the MCA without focal stenosis or occlusion. Normal arborization of the distal segments. Right Vertebral Artery: Redemonstration of extension of the V3 dissection flap into the intradural right vertebral artery with decreased extent of contrast opacification of the intradural right vertebral artery relative to the left and stable moderate stenosis of the distal V4 segment Left Vertebral Artery: Normal V4 segment. Basilar Artery: Normal without focal stenosis or occlusion. Normal appearance of the proximal superior cerebellar arteries. Right Posterior Cerebral Artery: Normal P1 segment. Normal opacification of the distal PROGRAM ADMINISTRATOR segments. Left Posterior Cerebral Artery: Normal P1 segment. Normal opacification of the distal PROGRAM ADMINISTRATOR segments. Normal opacification of the superior sagittal, straight, transverse, and sigmoid sinuses. CT/CT angio head neck stroke IMPRESSION: No new arterial abnormality in the head or neck. 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 Above impression was communicated to Dr. Moran on 11/10/2021 at 9:23 PM
--- NOTE | ~2021-11-10 | CT_ITS ---
EXAMINATION: CT HEAD WITHOUT CONTRAST (STROKE PROTOCOL) CLINICAL INFORMATION: Stroke protocol. Left upper extremity weakness COMPARISON: CT from 11/04/2020 TECHNIQUE: Contiguous axial imaging was performed from the skull base to vertex without intravenous administration of contrast. This CT examination was performed using dose optimization techniques as appropriate, variously including the following: *Automated exposure control *Adjustment of mA and/or kV according to patient size (this includes techniques or standardized protocols for targeted exams where dose is matched to indication/reason for exam; i.e. extremities or head) *Use of iterative reconstruction technique DLP: 621 mGy-cm RESULTS: There is no evidence of acute intracranial hemorrhage, acute large vessel infarct, midline shift or mass effect. The madison-white differentiation is preserved. Patchy and confluent areas of decreased attenuation seen in the periventricular and subcortical white matter most consistent with chronic microvascular ischemic disease. Encephalomalacia is seen consistent with old ischemic infarct within the left parietal lobe. This is unchanged compared to the prior exam. Moderate generalized atrophy is seen with prominence of the sulci and ventricles. There are no extraaxial collections. Osseous structures are intact. Paranasal sinuses and mastoid air cells are well aerated. CT/CT head for stroke IMPRESSION: No acute intracranial pathology. This critical result was discussed with Dr. Bobbi Moran at 2054 hours on 11/10/2021. It was ascertained that the content and urgency of the report was understood at the time of direct communication.
--- NOTE | 2021-11-10 20:38 | ECG_ITS ---
Test Reason : STROKE Blood Pressure : / mmHG Vent. Rate : 085 BPM Atrial Rate : 085 BPM P-R Int : 168 ms QRS Dur : 076 ms QT Int : 382 ms P-R-T Axes : 071 070 076 degrees QTc Int : 454 ms Poor data quality, interpretation may be adversely affected Normal sinus rhythm Possible Left atrial enlargement Borderline ECG When compared with ECG of 26-NOV-2020 22:24, Premature ventricular complexes are no longer Present Referred By: Bobbi Moran Electronically Signed By:NATTY ROWE
[2021-11-10 20:39] VITALS: BP 142/70; BP 146/74; PULSE 90; RESP 17; TEMP 37; O2SAT 100; O2SAT 99; BMI 17.7
--- NOTE | 2021-11-10 20:41 | ED_ITS ---
HPI - Neuro Symptoms/Deficit General Chief Complaint: Stroke Stated Complaint: STROKE Time Seen by Provider: 11/10/21 20:38 Source: patient and EMS Mode of arrival: EMS History of Present Illness HPI Narrative: 81-year-old female with history left MCA stroke approximately 1 year ago in combination with a right vertebral artery dissection presents again via EMS with acute neuro deficits described as numbness/tingling in the left upper extremity as well as speech changes. She denies any shortness of breath or chest pain. The sister's the 1 who called EMS. Related Data Home Medications Medication Instructions Recorded Confirmed albuterol sulfate 90 mcg/actuation 2 puff PO Q2-4H PRN Wheezing 11/04/20 11/27/20 aerosol inhaler atorvastatin 20 mg tablet 1 tab PO DAILY 11/04/20 11/27/20 famotidine 40 mg tablet 1 tab PO DAILY 11/04/20 11/27/20 mesalamine 400 mg capsule (with 4 cap PO BID 11/04/20 11/27/20 delayed release tablets inside) (Delzicol) mometasone-formoterol HFA 200 2 puff PO BID 11/04/20 11/27/20 mcg-5 mcg/actuation aerosol inhaler (Dulera) montelukast 10 mg tablet 1 tab PO BEDTIME 11/04/20 11/27/20 sotalol 80 mg tablet 1 tab PO DAILY 11/04/20 11/27/20 theophylline 300 mg 1 tab PO DAILY 11/04/20 11/27/20 tablet,extended release,12 hr tiotropium bromide 18 mcg capsule 1 cap inhalation DAILY 11/04/20 11/27/20 with inhalation device (Spiriva with HandiHaler) Previous Rx's Medication Instructions Recorded aspirin 81 mg tablet,delayed 81 mg PO DAILY #30 tabs 11/29/20 release cefuroxime axetil 500 mg tablet 500 mg PO BID #10 tabs 11/29/20 prednisone 20 mg tablet 40 mg PO DAILY 5 days #0 tabs 11/29/20 Allergies Allergy/AdvReac Type Severity Reaction Status Date / Time Penicillins Allergy Severe ANAPHYLAXIS Unverified 11/05/20 11:15 From Demerol AdvReac Intermediate NAUSEA & Uncoded 11/05/20 11:15 VOMITING Review of Systems Review of Systems: Pertinent positives and negatives as stated in HPI 10 point review of systems is otherwise negative. PMFSH Past Medical History Source: nursing notes reviewed Medical History Atrial fibrillation Carotid stenosis COPD (chronic obstructive pulmonary disease) Endometriosis H/O ischemic left MCA stroke HTN (hypertension) Skin cancer Ulcerative colitis Family History Family History Father Lung cancer Social History Social History Household Members: Unknown / Unable to assess Housing: Unknown / Unable to assess Do you presently have visiting nurse or other home services: No Unable to assess alcohol history related to: Unknown Alcohol intake: never Patient Tobacco Use Status: Tobacco use Unknown Advance Directives: Yes Advance Directives on File: Yes Advance Directives Date on File: 11/30/20 service: No Current occupational status: retired Physical Exam Vital Signs: Vital Signs: Last Vital Signs Temp 97.7 F 11/10/21 22:37 Pulse 92 11/10/21 22:37 Resp 18 11/10/21 22:37 BP 143/90 H 11/10/21 22:37 Pulse Ox 98 11/10/21 22:37 O2 Del Method 11/10/21 22:37 BMI result Body Mass Index 17.7 VITAL SIGNS: Reviewed. GENERAL: Elderly, fragile/cachectic, in no acute distress. HEAD: Normocephalic/atraumatic EYES: PERRLA, EOMI EARS: Ext canals without abnormality OROPHARYNX: no oral lesions noted, posterior pharynx clear, dry mucosa NECK: Supple, no adenopathy LUNGS: Normal breath sounds. CARDIOVASCULAR: Regular rate and rhythm without noted murmurs, no JVD or lower extremity edema. ABDOMEN: Soft, non-tender, non-distended with bowel sounds. MUSCULOSKELETAL: No tenderness, deformities, or effusions noted on gross inspection. EXTREMITIES: No cyanosis, clubbing or edema. SKIN: Inspection of the skin reveals no rashes NEUROLOGIC: Alert and oriented x 3. Refer to NIH stroke scale Course Course Course Narrative: 81-year-old female with history and clinical presentation suggestive of new neuro deficit in the left upper extremity, the noted right lower extremity changes suspect are related to prior left MCA. Stroke protocol being followed at present, last known well as unknown. Review of all investigations without acute findings to further explain patient's presentation, on re-evaluation after imaging studies left upper extremity appears to be within normal limits. There is no facial asymmetry, however it was noticed that the initial troponin was elevated without corresponding changes on EKG and will repeat the troponin. I discussed this case with the inpatient hospitalist who accepts admission. Reevaluation(s) Reevaluation #1: [facility] called to states that there are no acute findings on the noncontrast head CT. Time: 20:53 Reevaluation #2: Call out to Neurology. 2100: I discussed the case with Dr. Melvin, neurology, who states that the risks and benefits associated with administering tPA with unclear onset and the current symptoms observed unless acute findings found on CT angio of head and neck there is no current recommendation to proceed with tPA. Time: 20:55 MDM - Neuro Symptoms/Deficit Lab Data Result diagrams: 11/10/21 20:50 11/10/21 21:18 Labs: Lab Results 11/10/21 11/10/21 11/10/21 Range/Units 20:40 20:40 20:50 WBC 7.2 (4.8-10.8) X10*3/uL RBC 4.10 L (4.20-5.50) X10*6/uL Hgb 12.7 (12.0-16.0) g/dl Hct 38.1 (37.0-47.0) % MCV 92.9 (80.0-98.0) fL MCH 31.0 (27.0-33.0) pg MCHC 33.3 (31.0-35.0) g/dl RDW 14.6 (11.0-16.0) % Plt Count 317 (160-400) X10*3/uL MPV 9.3 L (9.4-12.3) fL Immature Gran % (Auto) 0.1 (0.0-0.4) % Neut % (Auto) 49.2 (45-73) % Lymph % (Auto) 33.6 (20-40) % [place] % (Auto) 10.8 (2-11) % Eos % (Auto) 5.6 H (0-4) % Baso % (Auto) 0.7 (0-2) % Lymph # (Auto) 2.4 (1.2-4.9) X10*3/uL [place] # (Auto) 0.8 (0.1-1.2) X10*3/uL Eos # (Auto) 0.4 (0.0-0.4) X10*3/uL Baso # (Auto) 0.1 (0.0-0.2) X10*3/uL Abs Immat Gran (auto) 0.01 (0.00-0.03) X10*3/uL Absolute Neuts (auto) 3.5 (2.0-8.3) x10*3/uL Absolute Nucleated RBC 0.000 (0.0-0.012) X10*3/uL Nucleated RBC % (auto) 0.0 (0.0-0.2) /100WBC PT (10.0-13.1) SEC Whole Blood PT 13.0 (11.1-13.5) sec INR (0.9-1.1) Whole Blood INR 1.1 (0.9-1.1) APTT (26.0-36.4) SEC VBG pH (7.32-7.43) VBG pCO2 mmHg VBG pO2 mmHg VBG HCO3 (22-26) mmol/L VBG O2 Saturation % VBG Base Excess mmol/L Sodium (135-145) mmol/L Potassium (3.3-5.1) mmol/L Chloride (96-108) mmol/L Carbon Dioxide (22-29) mmol/L Anion Gap (12-20) BUN (9-16) mg/dL Creatinine (0.5-1.4) mg/dL Estim Creat Clear Calc Estimated GFR POC Glucose 88 (60-115) mg/dL Random Glucose (60-115) mg/dL Calcium (8.4-10.2) mg/dL Total Creatine Kinase (26-140) U/L Troponin I High Sens (<3.5-17.0) ng/L COVID-19 (MU) (Negative) COVID-19 Clin Com 11/10/21 11/10/21 11/10/21 Range/Units 20:50 20:50 21:18 WBC (4.8-10.8) X10*3/uL RBC (4.20-5.50) X10*6/uL Hgb (12.0-16.0) g/dl Hct (37.0-47.0) % MCV (80.0-98.0) fL MCH (27.0-33.0) pg MCHC (31.0-35.0) g/dl RDW (11.0-16.0) % Plt Count (160-400) X10*3/uL MPV (9.4-12.3) fL Immature Gran % (Auto) (0.0-0.4) % Neut % (Auto) (45-73) % Lymph % (Auto) (20-40) % [place] % (Auto) (2-11) % Eos % (Auto) (0-4) % Baso % (Auto) (0-2) % Lymph # (Auto) (1.2-4.9) X10*3/uL [place] # (Auto) (0.1-1.2) X10*3/uL Eos # (Auto) (0.0-0.4) X10*3/uL Baso # (Auto) (0.0-0.2) X10*3/uL Abs Immat Gran (auto) (0.00-0.03) X10*3/uL Absolute Neuts (auto) (2.0-8.3) x10*3/uL Absolute Nucleated RBC (0.0-0.012) X10*3/uL Nucleated RBC % (auto) (0.0-0.2) /100WBC PT 11.2 (10.0-13.1) SEC Whole Blood PT (11.1-13.5) sec INR 1.0 (0.9-1.1) Whole Blood INR (0.9-1.1) APTT 29.5 (26.0-36.4) SEC VBG pH (7.32-7.43) VBG pCO2 mmHg VBG pO2 mmHg VBG HCO3 (22-26) mmol/L VBG O2 Saturation % VBG Base Excess mmol/L Sodium 141 (135-145) mmol/L Potassium 4.2 (3.3-5.1) mmol/L Chloride 106 (96-108) mmol/L Carbon Dioxide 22 (22-29) mmol/L Anion Gap 17 (12-20) BUN 32 H D (9-16) mg/dL Creatinine 0.99 (0.5-1.4) mg/dL Estim Creat Clear Calc 35.0 Estimated GFR 54 POC Glucose (60-115) mg/dL Random Glucose 85 (60-115) mg/dL Calcium 9.1 (8.4-10.2) mg/dL Total Creatine Kinase 157 H D (26-140) U/L Troponin I High Sens 17.2 H (<3.5-17.0) ng/L COVID-19 (MU) (Negative) COVID-19 Clin Com 11/10/21 11/10/21 Range/Units 21:18 21:31 WBC (4.8-10.8) X10*3/uL RBC (4.20-5.50) X10*6/uL Hgb (12.0-16.0) g/dl Hct (37.0-47.0) % MCV (80.0-98.0) fL MCH (27.0-33.0) pg MCHC (31.0-35.0) g/dl RDW (11.0-16.0) % Plt Count (160-400) X10*3/uL MPV (9.4-12.3) fL Immature Gran % (Auto) (0.0-0.4) % Neut % (Auto) (45-73) % Lymph % (Auto) (20-40) % [place] % (Auto) (2-11) % Eos % (Auto) (0-4) % Baso % (Auto) (0-2) % Lymph # (Auto) (1.2-4.9) X10*3/uL [place] # (Auto) (0.1-1.2) X10*3/uL Eos # (Auto) (0.0-0.4) X10*3/uL Baso # (Auto) (0.0-0.2) X10*3/uL Abs Immat Gran (auto) (0.00-0.03) X10*3/uL Absolute Neuts (auto) (2.0-8.3) x10*3/uL Absolute Nucleated RBC (0.0-0.012) X10*3/uL Nucleated RBC % (auto) (0.0-0.2) /100WBC PT (10.0-13.1) SEC Whole Blood PT (11.1-13.5) sec INR (0.9-1.1) Whole Blood INR (0.9-1.1) APTT (26.0-36.4) SEC VBG pH 7.48 H (7.32-7.43) VBG pCO2 30 mmHg VBG pO2 51 mmHg VBG HCO3 22 (22-26) mmol/L VBG O2 Saturation 85.0 % VBG Base Excess 0.3 mmol/L Sodium (135-145) mmol/L Potassium (3.3-5.1) mmol/L Chloride (96-108) mmol/L Carbon Dioxide (22-29) mmol/L Anion Gap (12-20) BUN (9-16) mg/dL Creatinine (0.5-1.4) mg/dL Estim Creat Clear Calc Estimated GFR POC Glucose (60-115) mg/dL Random Glucose (60-115) mg/dL Calcium (8.4-10.2) mg/dL Total Creatine Kinase (26-140) U/L Troponin I High Sens (<3.5-17.0) ng/L COVID-19 (MU) Negative (Negative) COVID-19 Clin Com See Note ECG Data Attestation: I personally reviewed and interpreted this ECG as follows: Prior ECG tracings: available for review Interpretation: Normal sinus rhythm, HR-85, no STEMI, NH/QRS/QTC are within normal limits. NIH Stroke Scale Internal: Initial- Upon Arrival Level of Consciousness: Alert Level of Consciousness Questions: Answers both questions correctly Level of Consciousness Commands: Performs both tasks correctly Best Gaze: Normal Visual: No visual loss Facial Palsy: Normal Motor Arm (Right): No drift Motor Arm (Left): Drift Motor Leg (Right): Drift Motor Leg (Left): No drift Limb Ataxia: Present in one limb Sensory: Normal Best Language: No aphasia Dysarthia: Mild to moderate dysarthria Extinction and Inattention: No abnormality Score: 4 Critical Care Time Critical Care Time Critical Care Time: Yes Total Critical Care Time: 30 Attestation: I personally attest to this time spent taking care of the patient. Discharge Plan Discharge Clinical Impression: LUE weakness, COPD (chronic obstructive pulmonary disease), H/O ischemic left MCA stroke, Elevated troponin Patient Disposition: Still a Patient Prescriptions: No Action atorvastatin 20 mg tablet 1 tab PO DAILY sotalol 80 mg tablet 1 tab PO DAILY famotidine 40 mg tablet 1 tab PO DAILY theophylline 300 mg tablet extended release 12 hr 1 tab PO DAILY montelukast 10 mg tablet 1 tab PO BEDTIME albuterol sulfate 90 mcg/actuation HFA aerosol inhaler 2 puff PO Q2-4H PRN (Reason: Wheezing) Spiriva with HandiHaler 18 mcg capsule, w/inhalation device 1 cap inhalation DAILY Dulera 200-5 mcg/actuation HFA aerosol inhaler 2 puff PO BID mesalamine [Delzicol] 400 mg capsule (with del rel tablets) 4 cap PO BID cefuroxime axetil 500 mg tablet 500 mg PO BID Qty: 10 0RF prednisone 20 mg Tablet 40 mg PO DAILY 5 Days Qty: 0 0RF aspirin 81 mg tablet,delayed release (DR/EC) 81 mg PO DAILY Qty: 30 0RF
[2021-11-10 20:45] LABS: ~PT, ~INR - Anti Coag Clinic 1.1 (0.9-1.1)
[2021-11-10 20:46] LABS: Glucose, Whole Blood 88 mg/dL (60-115)
[2021-11-10 21:00] LABS: MANUAL DIFF FLAG NO
[2021-11-10 21:01] LABS: Basophils Absolute Auto 0.1 X10*3/uL (0.0-0.2); Basophils Percent Auto 0.7 % (0-2); Eosinophils Absolute Auto 0.4 X10*3/uL (0.0-0.4); Eosinophils Percent Auto 5.6 % (0-4); Hematocrit 38.1 % (37.0-47.0); Hemoglobin 12.7 g/dl (12.0-16.0); Imm Gran Abs Auto 0.01 X10*3/uL (0.00-0.03); Imm Gran Pct Auto 0.1 % (0.0-0.4); Lymphocytes Absolute Auto 2.4 X10*3/uL (1.2-4.9); Lymphocytes Percent Auto 33.6 % (20-40); Mean Corpuscular HGB Conc 33.3 g/dl (31.0-35.0); Mean Corpuscular Volume 92.9 fL (80.0-98.0); Mean Platelet Volume 9.3 fL (9.4-12.3); Monocytes Absolute Auto 0.8 X10*3/uL (0.1-1.2); Monocytes Percent Auto 10.8 % (2-11); Neutrophils Absolute Auto 3.5 x10*3/uL (2.0-8.3); Neutrophils Percent Auto 49.2 % (45-73); Platelet Count 317 X10*3/uL (160-400); Red Cell Distribution Width 14.6 % (11.0-16.0); White Blood Count 7.2 X10*3/uL (4.8-10.8)
[2021-11-10 21:07] LABS: Prothrombin Time 11.2 SEC (10.0-13.1)
[2021-11-10 21:09] LABS: Partial Thromboplastin Time 29.5 SEC (26.0-36.4)
[2021-11-10 21:12] LABS: Stroke Lab Use COMPLETE
[2021-11-10 21:24] LABS: Troponin-I High Sensitivity 17.2 ng/L (<3.5-17.0)
[2021-11-10 21:30] VITALS: BP 153/87; PULSE 80
[2021-11-10] MEDS: iohexoL 350 MG/ML 100 ML INFUS..BTL IV (21:31)
[2021-11-10 21:37] LABS: VBG Base Excess 0.3 mmol/L; VBG HCO3 22 mmol/L (22-26); VBG pCO2 30 mmHg; VBG pH 7.48 (7.32-7.43); VBG pO2 51 mmHg
[2021-11-10 21:38] LABS: Venous Blood Gas Refer to POC result
--- OUTSIDE RECORDS SUMMARY | 2021-11-10 21:43 | XMS_ITS | Continuity of Care Document ---
:1940 Author Organization [facility] Address [address] [place] [address]- Care Team Providers Name Role Phone Billie Lagos MD Primary Care Physician Encounter [facility] Date(s): 11/22/20 - 12/22/20 [facility] [address] [place] [address]- Attending Physician: Melissa Gotti Admitting Physician: Melissa Gotti Referring Physician: AdmtrMelissa Allergies, Adverse Reactions, Alerts Substance Reaction Severity Status penicillin Active Demerol Active Immunizations Given and Recorded Vaccine Date Status Refusal Reason SARS-CoV-2 (COVID-19) mRNA-1273 vaccine 06/03/20 Given SARS-CoV-2 (COVID-19) mRNA-1273 vaccine 05/06/20 Given Medications acetaminophen 325 mg oral tablet 650 mg, By Mouth, Every 4 hours, PRN, Temperature Greater than 100.5, Refills 0, Maintenance, Pain ,Mild, 11/11/20 10:15:00 EDT, Partial fill upon patient request if the prescription is for a scheduleII opioid drug. Start Date: 11/11/20 Status: Orderedaspirin 81 mg oral delayed release tablet 81 mg, By Mouth, Daily, Refills 0, Maintenance, 11/11/20 10:16:00 EDT, Partial fill upon patient request if the prescription is for a schedule II opioid drug. Start Date: 11/11/20 Status: Orderedatorvastatin 80 mg oral tablet 1 tablet = 80 mg, By Mouth, Daily at bedtime, 0 Refills, Maintenance, 11/11/20 10:15:00 EDT, Tablet,Partial fill upon patient request if the prescription is for a schedule II opioid drug. Start Date: 11/11/20 Status: OrderedBactrim DS Tablet 1, tablet, By Mouth, 2 times a day, Maintenance, 11/11/20 10:16:00 EDT Start Date: 11/11/20 Stop Date: 11/13/20 Status: Orderedbisacodyl 10 mg rectal suppository 1 supp = 10 mg, Rectally, Daily, PRN Constipation, 0 Refills, Maintenance, 11/11/20 10:16:00 EDT, Suppository, Partial fill upon patient request if the prescription is for a schedule II opioid drug. Start Date: 11/11/20 Status: OrderedDocusate/Senna Tablet 1 tablet, By Mouth, 2 times a day, PRN Constipation, 0 Refills, Maintenance, 11/11/20 10:16:00 EDT, Tablet, Partial fill upon patient request if the prescription is for a schedule II opioid drug. Start Date: 11/11/20 Status: OrderedDulera 200 mcg-5 mcg/inh inhalation aerosol 2 puffs, Inhalation, 2 times a day, 0 Refills, Maintenance, 04/13/15 14:27:30, Aerosol Start Date: 04/13/15 Status: OrderedDuoneb Inhalation Solution 1, vials, BAND Nebulizer, Every 4 hours, PRN, Refills 0, Maintenance, 11/11/20 10:16:00 EDT, Inhalation Solution Start Date: 11/11/20 Status: Orderedfamotidine 40 mg oral tablet 1 tablet = 40 mg, By Mouth, Daily at bedtime, # 30 tablet, 0 Refills, Maintenance, 05/01/19 13:38:00EDT, Tablet Start Date: 05/01/19 Status: OrderedGlucosamine & Chondroitin with MSM By Mouth, 3 times a day, 0 Refills, Maintenance Start Date: 08/22/10 Status: Orderedlosartan 50 mg oral tablet 50 mg, 1, tablet, By Mouth, Daily, Refills 0, Maintenance, 11/11/20 10:16:00 EDT, Partial fill upon patient request if the prescription is for a schedule II opioid drug. Start Date: 11/11/20 Status: OrderedMaalox Plus Liquid 15 mL, By Mouth, 4 times a day, PRN Dyspepsia, 0 Refills, Maintenance, 11/11/20 10:16:00 EDT, Suspension, Partial fill upon patient request if the prescription is for a schedule II opioid drug. Start Date: 11/11/20 Status: OrderedMiraLax Powder 1 pack/packet = 17 Gm, By Mouth, Daily, PRN Constipation, 0 Refills, Maintenance, 11/11/20 10:19:00 EDT, Powder, Partial fill upon patient request if the prescription is for a schedule II opioid drug. Start Date: 11/11/20 Status: Orderedmontelukast 10 mg oral tablet 10 mg, 1, tablet, By Mouth, Daily in PM, # 30 tablet, Refills 0, Maintenance, 05/01/19 13:39:00 EDT Start Date: 05/01/19 Status: OrderedMultivit Therapeutic/Minerals Tablet 1 tablet, By Mouth, Daily, 0 Refills, Maintenance, 11/11/20 10:17:00 EDT, Tablet, Partial fill upon patient request if the prescription is for a schedule II opioid drug. Start Date: 11/11/20 Status: OrderedPlavix 75 mg oral tablet 75 mg, 1, tablet, By Mouth, Daily, Refills 0, Maintenance, 11/11/20 10:16:00 EDT, Partial fill upon patient request if the prescription is for a schedule II opioid drug. Start Date: 11/11/20 Status: OrderedRobitussin DM Liquid 10 mL, By Mouth, Every 4 hours, PRN Cough, 0 Refills, Maintenance, 11/11/20 10:16:00 EDT, Syrup, Partial fill upon patient request if the prescription is for a schedule II opioid drug. Start Date: 11/11/20 Status: Orderedsotalol 80 mg oral tablet 80 mg, 1, tablet, By Mouth, Daily, # 60 tablet, Refills 0, Maintenance, 05/01/19 13:36:00 EDT Start Date: 05/01/19 Status: OrderedSpiriva HandiHaler 18 mcg Inhalation Capsule 1 capsule, Inhalation, Daily, 0 Refills, Maintenance, 05/01/19 13:40:00 EDT, Capsule Start Date: 05/01/19 Status: Orderedthiamine 100 mg oral tablet 100 mg, 1, tablet, By Mouth, Daily, Refills 0, Maintenance, 11/11/20 10:16:00 EDT, Partial fill uponpatient request if the prescription is for a schedule II opioid drug. Start Date: 11/11/20 Status: OrderedVentolin HFA 108 mcg/inh inhalation aerosol with adapter 2 puffs, Inhalation, 4 times a day, 0 Refills, Maintenance, 04/13/15 14:27:49 Start Date: 04/13/15 Status: Ordered Problem List Condition Effective Dates Status Health Status Informant History of skin cancer of face, right Active rastafari and under left nostril. Sees a plastic surgeon Dr. Geraldo Lauren (spelling?)(Confirmed) Benign essential Active hypertension(Confirmed) Bilateral carotid artery obstruction Active without cerebral infarction(Confirmed) Last pap smear 08/27/08 negative with Active negative HPV. No further paps needed due to age > 65(Confirmed) Asthma with COPD(Confirmed) Active Chronic osteoarthritis(Confirmed) Active Colitis, nonspecific(Confirmed) Active History of endometriosis(Confirmed) Active Her eye doctor suspects she has Active glaucoma(Confirmed) Menopausal state - patient is still on Active hormone replacement therapy and refuses to come off - states understanding of risks(Confirmed) Osteopenia based on lowest T score Active -1.3 in forearm radius. (Dexa scan done 09/06/18 at [facility])(Confirmed) Smoker, 1/4 ppd. Has smoked on/off Active since age 18(Confirmed) Social History Social History Type Response Smoking Status Current some day smoker; Tob acco user in household: Yes entered on: 02/02/16 Sex
--- OUTSIDE RECORDS SUMMARY | 2021-11-10 21:43 | XMS_ITS | Continuity of Care Document ---
:1940 Author Organization [facility] Address Unavailable , Care Team Providers Name Role Phone Billie Lagos MD Primary Care Physician Encounter [facility] Date(s): 03/17/21 - 04/16/21 [facility] Attending Physician: Melissa Gotti Admitting Physician: Melissa Gotti Referring Physician: Melissa Gotti Allergies, Adverse Reactions, Alerts No Known Medication Allergies Substance Reaction Severity Status penicillin Active Demerol Active Immunizations Given and Recorded Vaccine Date Status Refusal Reason SARS-CoV-2 (COVID-19) mRNA-1273 vaccine 02/03/21 Recorded SARS-CoV-2 (COVID-19) mRNA-1273 vaccine 06/03/20 Given SARS-CoV-2 (COVID-19) mRNA-1273 vaccine 05/06/20 Given Not Given Vaccine Date Status Refusal Reason influenza virus vaccine, inactivated1 04/13/21 Not Given Parent Or Guardian Refuses 1Result Comment: per sister, probably already got this at rehab Medications acetaminophen 325 mg oral tablet 650 [...] of skin cancer of face, right Active church and under left nostril. Sees a plastic [...] forearm radius. (Dexa scan done 09/06/18 at [facility])(Confirmed) Smoker, 1/4 ppd. Has smoked on/off Active since age 18(Confirmed) Social History Social History Type Response Smoking Status Current some day smoker; Tob acco user in household: Yes entered on: 02/02/16 Sex
--- OUTSIDE RECORDS SUMMARY | 2021-11-10 21:43 | XMS_ITS | Continuity of Care Document ---
:1940 Author Organization [facility] Address [address] [place] [address], [address] [place] [id number]- Care Team Providers Name Role Phone Yolis GAMBLE, Billie Primary Care Physician Encounter [facility] Date(s): 05/01/19 - 05/08/19 [facility] [address] [place] [address], [address] [place] [id number]- Attending Physician: Minor Espinosa MD Allergies, Adverse Reactions, Alerts Substance Reaction Severity Status penicillin Active Demerol Active Medications Acetaminophen 0 Refills, Maintenance, 06/24/18 16:38:10 EDT Start Date: 06/24/18 Status: OrderedAsacol Tablet 800, mg, By Mouth, 3 times a day, 0, 0, 07/18/06 11:55:45, Print VIPUL Number, [id number], Constant Indicator Start Date: 07/18/06 Status: Orderedatorvastatin 20 mg oral tablet 1 tablet = 20 mg, By Mouth, Daily in AM, 0 Refills, Maintenance, 05/01/19 13:42:00 EDT, Tablet Start Date: 05/01/19 Status: OrderedDelzicol 400 mg oral delayed release capsule 2 capsule = 800 mg, By Mouth, 2 times a day, 0 Refills, Maintenance, 04/13/15 14:28:01 Start Date: 04/13/15 Status: OrderedDulera 200 mcg-5 mcg/inh inhalation aerosol 2 puffs, Inhalation, 2 times a day, 0 Refills, Maintenance, 04/13/15 14:27:30, Aerosol Start Date: 04/13/15 Status: Orderedestradiol 0.5 mg oral tablet 1 tablet = 0.5 mg, By Mouth, Every Sunday and , # 26 tablet, 3 Refills, Maintenance, 05/01/19 13:48:00 EDT, Tablet, [facility], 168, cm, 02/19/19 12:13:00 EST, Height Start Date: 05/01/19 Status: Orderedfamotidine 40 mg oral tablet 1 tablet = 40 mg, By Mouth, Daily at bedtime, # 30 tablet, 0 Refills, Maintenance, 05/01/19 13:38:00EDT, Tablet Start Date: 05/01/19 Status: OrderedGlucosamine & Chondroitin with MSM By Mouth, 3 times a day, 0 Refills, Maintenance Start Date: 08/22/10 Status: OrderedLosartan By Mouth, Daily, 0 Refills, Maintenance Start Date: 10/05/11 Status: OrderedmedroxyPROGESTERone 5 mg oral tablet 1 tablet = 5 mg, By Mouth, Daily, starting on day 16 of each month, # 10 tablet, 12 Refills, Maintenance, 05/01/19 13:52:00 EDT, [facility], 168, cm, 02/19/19 12:13:00 EST, Height Start Date: 05/01/19 Stop Date: 09/08/19 Status: Orderedmontelukast 10 mg oral tablet 10 mg, 1, tablet, By Mouth, Daily in PM, # 30 tablet, Refills 0, Maintenance, 05/01/19 13:39:00 EDT Start Date: 05/01/19 Status: OrderedSingulair 10 mg oral tablet 1 tablet = 10 mg, By Mouth, 0 Refills Start Date: 08/27/08 Status: Orderedsotalol 80 mg oral tablet 80 mg, 1, tablet, By Mouth, Daily, # 60 tablet, Refills 0, Maintenance, 05/01/19 13:36:00 EDT Start Date: 05/01/19 Status: OrderedSpiriva HandiHaler 18 mcg Inhalation Capsule 1 capsule, Inhalation, Daily, 0 Refills, Maintenance, 05/01/19 13:40:00 EDT, Capsule Start Date: 05/01/19 Status: OrderedTheophylline By Mouth, 0 Refills, Maintenance Start Date: 08/22/10 Status: OrderedTylenol 8 Hour 650 mg oral tablet, extended release 2 tablet = 1,300 mg, By Mouth, 2 times a day, 0 Refills, Maintenance, 05/01/19 13:45:00 EDT Start Date: 05/01/19 Status: OrderedVentolin HFA 108 mcg/inh inhalation aerosol with adapter 2 puffs, Inhalation, 4 times a day, 0 Refills, Maintenance, 04/13/15 14:27:49 Start Date: 04/13/15 Status: Ordered Problem List Condition Effective Dates Status Health Status Informant History of skin cancer of face, right Active druze and under left nostril. Sees a plastic [...] forearm radius. (Dexa scan done 09/06/18 at [facility])(Confirmed) Smoker, 1/4 ppd. Has smoked on/off Active since age 18(Confirmed) Procedures Procedure Date Related Diagnosis Body Site Status Hip replacement, right1 04/1994 Comp leted Colonoscopy Completed 1Done at [facility] Social History Social History Type Response Smoking Status Current some day smoker; Tob acco user in household: Yes entered on: 02/02/16 Sex
--- OUTSIDE RECORDS SUMMARY | 2021-11-10 21:44 | XMS_ITS | Continuity of Care Document ---
:1940 Author Organization [facility] Address [address] [place] [address], [address] [place] [id number]- Care Team Providers Name Role Phone Yolis GAMBLE, Billie Primary Care Physician Encounter [facility] [place] Date(s): 06/07/20 - 07/07/20 [facility] [address] [place] [address], [address] [place] [id number] Allergies, Adverse Reactions, Alerts Substance Reaction Severity Status penicillin Active Demerol Active Immunizations Given and Recorded Vaccine Date Status Refusal Reason SARS-CoV-2 (COVID-19) mRNA-1273 vaccine 06/03/20 Given SARS-CoV-2 (COVID-19) mRNA-1273 vaccine 05/06/20 Given Medications Acetaminophen 0 Refills, Maintenance, 06/24/18 16:38:10 [...] tablet = 0.5 mg, By Mouth, Every Sunday, # 26 tablet, 1 Refills, Maintenance, 02/19/20 9:02:00 EST, Tablet, [facility], 168, cm, 02/19/19 12:13:00 EST, Height Start Date: 02/19/20 Status: Orderedfamotidine 40 mg oral tablet 1 [...] on day 16 of each month, # 30 tablet, 4 Refills, Maintenance, 02/19/20 9:02:00 EST, [facility], 168, cm, 02/19/19 12:13:00 EST, Height Start Date: 02/19/20 Stop Date: 04/09/20 Status: Orderedmontelukast 10 mg oral tablet 10 [...] of skin cancer of face, right Active confucianism and under left nostril. Sees a plastic [...] forearm radius. (Dexa scan done 09/06/18 at [facility])(Confirmed) Smoker, 1/4 ppd. Has smoked on/off Active since age 18(Confirmed) Social History Social History Type Response Smoking Status Current some day smoker; Tob acco user in household: Yes entered on: 02/02/16 Sex
--- OUTSIDE RECORDS SUMMARY | 2021-11-10 21:44 | XMS_ITS | Continuity of Care Document ---
:1940 Author Organization [facility] Address [address] [place] [address]- Care Team Providers Name Role Phone Billie Lagos MD Primary Care Physician Encounter [facility] [place] Date(s): 02/19/19 - 02/26/19 [facility] [address] [place] [address]- [facility] Attending Physician: Yan Roger MD Admitting Physician: Yan Roger MD Referring Physician: Billie Lagos MD Allergies, Adverse Reactions, Alerts Substance Reaction Severity Status penicillin Active Demerol Active Medications Acetaminophen 0 Refills, Maintenance, 06/24/18 16:38:10 EDT Start Date: 06/24/18 Status: OrderedAsacol Tablet 800, mg, By Mouth, 3 times a day, 0, 0, 07/18/06 11:55:45, Print VIPUL Number, 68, Constant Indicator Start Date: 07/18/06 Status: OrderedAtorvastatin By Mouth, Daily at bedtime, Maintenance, 12/16/14 19:06:45 Start Date: 12/16/14 Status: OrderedCalcium 600 +D By Mouth, 0 Refills, Maintenance, 04/13/16 14:22:44 Start Date: 04/13/16 Status: OrderedDelzicol 400 mg oral delayed release capsule 2 capsule = 800 mg, By Mouth, 2 times a day, 0 Refills, Maintenance, 04/13/15 14:28:01 Start Date: 04/13/15 Status: OrderedDulera Inhalation, 2 times a day, 0 Refills, Maintenance Start Date: 10/05/11 Status: OrderedDulera 200 mcg-5 mcg/inh inhalation aerosol 2 puffs, Inhalation, 2 times a day, 0 Refills, Maintenance, 04/13/15 14:27:30, Aerosol Start Date: 04/13/15 Status: Orderedestradiol 0.5 mg oral tablet See Instructions, Half tab (0.25 mg) by mouth on Sunday, Sunday, Sunday. Continue to do medroxyprogesterone for 10 days each cycle as you have been doing., # 12 tablet, 1 Refills, Maintenance, 02/04/19 15:18:00 GelSight, [facility], 168, cm... Start Date: 02/04/19 Status: OrderedGlucosamine & Chondroitin with MSM By Mouth, 3 times a day, 0 Refills, Maintenance Start Date: 08/22/10 Status: OrderedLosartan By Mouth, Daily, 0 Refills, Maintenance Start Date: 10/05/11 Status: OrderedSingulair 10 mg oral tablet 1 tablet = 10 mg, By Mouth, 0 Refills Start Date: 08/27/08 Status: OrderedSpiriva = 18 mcg, Inhalation, Daily, 0 Refills, Maintenance Start Date: 08/22/10 Status: OrderedTheophylline By Mouth, 0 Refills, Maintenance Start Date: 08/22/10 Status: OrderedVentolin HFA 108 mcg/inh inhalation aerosol with adapter 2 puffs, Inhalation, 4 times a day, 0 Refills, Maintenance, 04/13/15 14:27:49 Start Date: 04/13/15 Status: Orderedventolin inhaler 0, 07/18/06 11:59:18, Current med (Hx), ventolin inhaler Start Date: 07/18/06 Status: Ordered Problem List Condition Effective Dates Status Health Status Informant History of skin cancer of face, 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 Sees a plastic [...] come off - states understanding of risks(Confirmed) Smoker, 1/ ppd. Has smoked on/off Active since age 18(Confirmed) Vital Signs Most recent to oldest [Reference Range]: 1 Height 168.00 cm (02/19/19 12:13 PM) Weight 50 kg (02/19/19 12:13 PM) Body Mass Index [18.5-24.99] 17.72 *L* (02/19/19 12:13 PM) Blood Pressure [90-138/55-84 mm Hg] 130/70 mm Hg (02/19/19 12:13 PM) Blood pressure sites Arm, left (02/19/19 12:13 PM) Weight Obtained Via Patient/family stated (02/19/19 12:13 PM) Social History Social History Type Response Smoking Status Current some day smoker; Tob acco user in household: Yes entered on: 02/02/16 Sex
--- OUTSIDE RECORDS SUMMARY | 2021-11-10 21:44 | XMS_ITS | Continuity of Care Document ---
:1940 Author Organization [facility] Address [address] [place] [address]- Care Team Providers Name Role Phone Billie Lagos MD Primary Care Physician [place] [facility] [place](s[place] 09/16/19 - 10/16/19 [facility] [address] [place] [address]- [facility] Attending Physician: Melissa Gotti Admitting Physician: Melissa Gotti Referring Physician: trMelissa Allergies, Adverse Reactions, Alerts Substance Reaction Severity [...] Maintenance, 05/01/19 13:48:00 EDT, Tablet, [facility], 168, cm, 02/19/19 12:13:00 EST, [...] tablet, 12 Refills, Maintenance, 05/01/19 13:52:00 EDT, [facility], 168, cm, 02/19/19 12:13:00 EST, [...] of skin cancer of face, right Active jew and under left nostril. Sees a plastic [...] forearm radius. (Dexa scan done 09/06/18 at [facility])(Confirmed) Smoker, 1/4 ppd. Has smoked on/off Active since age 18(Confirmed) Social History Social History Type Response Smoking Status Current some day smoker; Tob acco user in household: Yes entered on: 02/02/16 Sex
--- OUTSIDE RECORDS SUMMARY | 2021-11-10 21:44 | XMS_ITS | Continuity of Care Document ---
:1940 Author Organization [facility] Address [address] [place] [address]- Care Team Providers Name Role Phone Yolis GAMBLE, Billie Primary Care Physician Encounter [facility] [place] Date(s): 04/12/21 - 04/17/[address] [id number] Discharge Disposition: Disch/Trans to IP Rehab or unit w/in Hos Attending Physician: Roxanne Hendricks DO Admitting Physician: Estefania Abreu MD Referring Physician: Not on Staff, Referring MD Allergies, Adverse Reactions, Alerts No Known Medication [...] probably already got this at rehab Medications Acetaminophen Tablet 650 mg, Tablet, By Mouth, 04/16/21 17:00:00 EST Start Date: 04/16/21 Stop Date: 04/16/21 Status: Completedatorvastatin 20 mg oral tablet 1 tablet = 20 mg, By Mouth, Daily, # 30 tablet, 0 Refills, Maintenance, 04/17/21 9:48:00 EST, Tablet, Partial fill upon patient request if the prescription is for a schedule II opioid drug. Start Date: 04/17/21 Status: OrderedDocusate/Senna Tablet 1 tablet, By Mouth, 2 times a day, PRN Constipation, 0 Refills, Maintenance, 04/17/21 9:53:00 EST, Tablet, Partial fill upon patient request if the prescription is for a schedule II opioid drug. Start Date: 04/17/21 Status: OrderedDulera 200 mcg-5 mcg/inh inhalation aerosol 2 puffs, Inhalation, 2 times a day, 0 Refills, Maintenance, 04/13/15 14:27:30, Aerosol Start Date: 04/13/15 Status: Orderedfamotidine 20 mg oral tablet 20 mg, 1, tablet, By Mouth, Daily at bedtime, # 30 tablet, Refills 0, Maintenance, 04/17/21 9:47:00 EST, Partial fill upon patient request if the prescription is for a schedule II opioid drug. Start Date: 04/17/21 Status: Orderedlosartan 50 mg oral tablet 50 mg, 1, tablet, By Mouth, 2 times a day, Refills 0, Maintenance, 11/11/20 10:16:00 EDT, Partial fill upon patient request if the prescription is for a schedule II opioid drug. Start Date: 11/11/20 Status: Orderedlosartan 50 mg oral tablet 50 mg, Tablet, By Mouth, 04/17/21 9:00:00 EST Start Date: 04/17/21 Stop Date: 04/17/21 Status: CompletedMaalox Plus Liquid 15 mL, By Mouth, 4 times a day, PRN Dyspepsia, 0 Refills, Maintenance, 11/11/20 10:16:00 EDT, Suspension, Partial fill upon patient request if the prescription is for a schedule II opioid drug. Start Date: 11/11/20 Status: Orderedmelatonin 3 mg oral tablet = 3 mg, By Mouth, Daily at bedtime, 0 Refills, Maintenance, 04/17/21 9:54:00 EST, Tablet, Partial fill upon patient request if the prescription is for a schedule II opioid drug. Start Date: 04/17/21 Status: Orderedmesalamine 400 mg oral delayed release capsule TAKE FOUR CAPSULES BY MOUTH TWICE A DAY Start Date: 04/17/21 Status: Orderedmontelukast 10 mg oral tablet 10 mg, 1, tablet, By Mouth, Daily in PM, # 30 tablet, Refills 0, Maintenance, 05/01/19 13:39:00 EDT Start Date: 05/01/19 Status: OrderedProAir HFA 90 mcg/inh inhalation aerosol 2 puffs, Inhalation, Every 4 hours, PRN as needed for wheezing, # 18 Gm, 0 Refills, Maintenance, 04/17/21 9:46:00 EST, Aerosol, Partial fill upon patient request if the prescription is for a schedule II opioid drug. Start Date: 04/17/21 Status: OrderedQUEtiapine 25 mg oral tablet 12.5 mg, 0.5, tablet, By Mouth, 2 times a day, PRN, Refills 0, Maintenance, Agitation, 04/17/21 9:54:00 EST, Partial fill upon patient request if the prescription is for a schedule II opioid drug. Start Date: 04/17/21 Status: OrderedRobitussin DM Liquid 10 mL, By Mouth, Every 4 hours, PRN Cough, 0 Refills, Maintenance, 04/17/21 9:54:00 EST, Syrup, Partial fill upon patient request if the prescription is for a schedule II opioid drug. Start Date: 04/17/21 Status: Orderedsotalol 80 mg oral tablet 80 mg, 1, tablet, By Mouth, Daily, # 60 tablet, Refills 0, Maintenance, 05/01/19 13:36:00 EDT Start Date: 05/01/19 Status: OrderedSpiriva HandiHaler 18 mcg Inhalation Capsule 1 capsule, Inhalation, Daily, 0 Refills, Maintenance, 05/01/19 13:40:00 EDT, Capsule Start Date: 05/01/19 Status: OrderedTheophylline 300 mg tablet SR TAKE 1 TABLET BY MOUTH ONCE A DAY. Start Date: 04/17/21 Status: Ordered Problem List Condition Effective Dates Status Health Status Informant History of skin cancer of face, right Active hinduism and under left nostril. Sees a plastic [...] forearm radius. (Dexa scan done 09/06/18 at [facility])(Confirmed) Smoker, 1/4 ppd. Has smoked on/off Active since age 18(Confirmed) Results Radiology Reports Exam Date Time Procedure Performing Provider Status 04/13/21 12:30 PM Ankle Min 3 Views Right Berta Woods; Auth (Verified) Notes:(Ankle Min 3 Views Right) Reason For Exam: with Pain;TraumaRESULT: Ankle Min 3 Views Right Ankle Min 3 Views Right Reason: Trauma; with Pain; Clinical Question(s): Fracture COMPARISON: None. FINDINGS: No evidence of fracture or dislocation. Small plantar calcaneal spur IMPRESSION: No evidence of fracture WSN: [id number] Ordering Physician: Em Pulliam Dictated By: Alexander Arambula MD Dictated Date/Time: 04/13/21 12:36 p Reviewed By: Aleaxnder Arambula MD Signed By: Alexander Arambula MD Signed Date/Time: 04/13/21 12:36 pm Transcribed By: KALYN Transcribed Date/Time: 04/13/21 12:34 pm Exam Date Time Procedure Performing Provider Status 04/12/21 1:04 PM Knee 1 or 2 Views Right Sandi Marie; Aut h (Verified) Notes:(Knee 1 or 2 Views Right) Reason For Exam: with Pain;TraumaRESULT: Knee 1 or 2 Views Right Knee 1 or 2 Views Right, 2 views Reason: Trauma; with Pain; Clinical Question(s): Fracture COMPARISON: None. FINDINGS: No acute fracture or dislocation. 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 Small knee joint effusion. IMPRESSION: No acute osseous injury identified. WSN: [id number] Ordering Physician: Bobbi Walls Dictated By: Michael Good MD Dictated Date/Time: 04/12/21 1:28 pm Reviewed By: Michael Good MD Signed By: Michael Good MD Signed Date/Time: 04/12/21 1:28 pm Transcribed By: KALYN Transcribed Date/Time: 04/12/21 1:26 pm Exam Date Time Procedure Performing Provider Status 04/12/21 1:04 PM Hand Min 3 Views Right Sandi Marie; Auth (Verified) Notes:(Hand Min 3 Views Right) Reason For Exam: with Pain;TraumaRESULT: Hand Min 3 Views Right Wrist Comp Min 3 Views Right, Hand Min 3 Views Right Reason: Trauma; with Pain; Clinical Question(s): Fracture COMPARISON: None. FINDINGS: Right wrist: No acute fracture or dislocation. Degenerative changes of the radiocarpal joint. Chondrocalcinosis of the triangular fibrocartilage. Right hand: Marked degenerative changes with severe osteoarthritis of the first carpometacarpal joint, second and third MCP joints and interphalangeal joints. IMPRESSION: No acute fracture identified. WSN: [id number] Ordering Physician: Bobbi Walls Dictated By: Michael Good MD Dictated Date/Time: 04/12/21 1:26 pm Reviewed By: Michael Good MD Signed By: Michael Good MD Signed Date/Time: 04/12/21 1:26 pm Transcribed By: KALYN Transcribed Date/Time: 04/12/21 1:19 pm Exam Date Time Procedure Performing Provider Status 04/12/21 1:04 PM Wrist Comp Min 3 Views Right Sandi Marie ; Auth (Verified) Notes:(Wrist Comp Min 3 Views Right) Reason For Exam: with Pain;TraumaRESULT: Wrist Comp Min 3 Views Right Wrist Comp Min 3 Views Right, Hand Min 3 Views Right Reason: Trauma; with Pain; Clinical Question(s): Fracture COMPARISON: None. FINDINGS: Right wrist: No acute fracture or dislocation. Degenerative changes of the radiocarpal joint. Chondrocalcinosis of the triangular fibrocartilage. Right hand: Marked degenerative changes with severe osteoarthritis of the first carpometacarpal joint, second and third MCP joints and interphalangeal joints. IMPRESSION: No acute fracture identified. WSN: [id number] Ordering Physician: Bobbi Walls Dictated By: Michael Good MD Dictated Date/Time: 04/12/21 1:26 pm Reviewed By: Michael Good MD Signed By: Michael Good MD Signed Date/Time: 04/12/21 1:26 pm Transcribed By: KALYN Transcribed Date/Time: 04/12/21 1:19 pm Exam Date Time Procedure Performing Provider Status 04/12/21 12:37 PM Chest Portable Sandi Marie; Auth (Verif ied) Notes:(Chest Portable) Reason For Exam: Pain;Other:RESULT: Chest Portable Chest Portable Reason: Pain; Clinical Question(s): Fracture, pneumothorax, pulmonary contusion COMPARISON: None. FINDINGS: Single AP portable chest x-ray labeled supine trauma. LINES AND TUBES: None. LUNGS AND PLEURA: Mildly hyperexpanded and clear. No pleural effusion. No pneumothorax. HEART, MEDIASTINUM AND CHIARA: Heart is normal in size. Aorta is calcified and tortuous. BONES AND SOFT TISSUES: No acute abnormality. IMPRESSION: COPD changes. No acute abnormality. WSN: [id number] Ordering Physician: Bobbi Walls Dictated By: Salvatore Araujo MD Dictated Date/Time: 04/12/21 1:01 pm Reviewed By: Salvatore Araujo MD Signed By: Salvatore Araujo MD Signed Date/Time: 04/12/21 1:01 pm Transcribed By: KALYN Transcribed Date/Time: 04/12/21 12:57 pm Exam Date Time Procedure Performing Provider Status 04/12/21 12:37 PM Pelvis 1 or 2 Views Sandi Marie; Auth (V erified) Notes:(Pelvis 1 or 2 Views) Reason For Exam: with Pain;TraumaRESULT: Pelvis 1 or 2 Views Pelvis 1 or 2 Views Reason: Trauma; with Pain; Clinical Question(s): Fracture COMPARISON: None. FINDINGS: Limited by projection. Partially imaged bilateral total hip arthroplasties without definite acute abnormality. Normal alignment of the sacroiliac and hip joints. Large amount of stool in the rectum. IMPRESSION: Limited study without definite acute osseous abnormality. WSN: [id number] Ordering Physician: Bobbi Walls Dictated By: Michael Good MD Dictated Date/Time: 04/12/21 12:54 p Reviewed By: Michael Good MD Signed By: Michael Good MD Signed Date/Time: 04/12/21 12:54 pm Transcribed By: KALYN Transcribed Date/Time: 04/12/21 12:50 pm Vital Signs Most recent to oldest [Reference 1 2 3 Range]: Height 160 cm 160 cm 160 cm (04/17/21 7:48 AM) (04/14/21 11:14 PM) (04/14/21 11:50 AM) Weight 50.7 kg 50.7 kg (04/12/21 6:01 PM) (04/12/21 5:33 PM) Oxygen Saturation [94-100 %] 96 % 100 % 100 % (04/17/21 7:48 AM) (04/16/21 7:00 PM) (04/16/21 3:00 P M) Pulse Rate [55-90 bpm] 79 bpm 83 bpm 68 bpm (04/17/21 7:48 AM) (04/16/21 7:00 PM) (04/16/21 3:00 P M) Body Mass Index [18.5-24.99] 19.8 (04/12/21 5:33 PM) Blood Pressure [90-138/55-84 mm 151/77 mm Hg 151/77 mm Hg Hg] *H* *H* (04/17/21 7:49 AM) (04/17/21 7:48 AM) Systolic Blood Pressure [90-138 120 mm Hg mm Hg] (04/16/21 7:00 PM) Diastolic Blood Pressure [55-84 70 mm Hg mm Hg] (04/16/21 7:00 PM) Respiratory Rate [16-30 br/min] 16 br/min 20 br/min 19 br/min (04/17/21 7:48 AM) (04/16/21 9:18 PM) (04/16/21 7:00 P M) Temperature [96.8-100.4 DegF] 97.4 DegF 98.2 DegF 98 .3 DegF (04/17/21 7:48 AM) (04/16/21 7:00 PM) (04/16/21 3:00 P M) Mode of Delivery (Oxygen) Room air Room air Room a ir (04/17/21 7:48 AM) (04/16/21 7:00 PM) (04/16/21 3:00 P M) Blood pressure sites Arm, left Arm, right Arm, right (04/17/21 7:48 AM) (04/16/21 7:00 PM) (04/16/21 3:00 P M) Temperature Route Oral Oral Oral (04/17/21 7:48 AM) (04/16/21 7:00 PM) (04/16/21 3:00 P M) Dry Weight 50.7 kg (04/12/21 5:33 PM) Weight Obtained Via Bed scale (04/12/21 6:01 PM) Social History Social History Type Response Smoking Status Current some day smoker; Tob acco user in household: Yes entered on: 02/02/16 Sex
--- OUTSIDE RECORDS SUMMARY | 2021-11-10 21:44 | XMS_ITS | Continuity of Care Document ---
:1940 Author Organization [facility] p Address [address] [place] [address], [address] [place] [address]- Care Team Providers Name Role Phone Billie Lagos MD Primary Care Phys[facility] [id number] Date(s): [facility]01/[facility] [address], [address] [place] [address]- Attending Physician: Melissa Gotti Admitting Physician: AdmtrMelissa Referring Physician: Admtr, Ar8 Allergies, Adverse Reactions, Alerts Substance Reaction Severity [...] Maintenance, 05/01/19 13:48:00 EDT, Tablet, [facility], 168, cm, 02/19/19 12:13:00 EST, [...] Refills, Maintenance, 05/01/19 13:52:00 EDT, [facility], 168, cm, 02/19/19 12:13:00 EST, [...] of skin cancer of face, right Active anabaptism and under left nostril. Sees a plastic [...] forearm radius. (Dexa scan done 09/06/18 at [facility])(Confirmed) Smoker, 1/4 ppd. Has smoked on/off Active since age 18(Confirmed) Social History Social History Type Response Smoking Status Current some day smoker; Tob acco user in household: Yes entered on: 02/02/16 Sex
--- OUTSIDE RECORDS SUMMARY | 2021-11-10 21:44 | XMS_ITS | Continuity of Care Document ---
:1940 Author Organization [facility] Address [address] [place] [address]- Care Team Providers Name Role Phone Not on Staff, PCP Primary Care Physician Unavailable Encounter [facility] [place] Date(s): 09/28/20 - 10/05/20 [facility] [address] [place], [place] [address] Attending Physician: Yan Roger MD Admitting Physician: [...] Maintenance, 02/19/20 9:02:00 EST, Tablet, [facility], 168, cm, 02/19/19 12:13:00 EST, [...] Refills, Maintenance, 02/19/20 9:02:00 EST, [facility], 168, cm, 02/19/19 12:13:00 EST, [...] of skin cancer of face, right Active christian and under left nostril. Sees a plastic [...] forearm radius. (Dexa scan done 09/06/18 at [facility])(Confirmed) Smoker, 1/4 ppd. Has smoked on/off Active since age 18(Confirmed) Social History Social History Type Response Smoking Status Current some day smoker; Tob acco user in household: Yes entered on: 02/02/16 Sex
--- OUTSIDE RECORDS SUMMARY | 2021-11-10 21:44 | XMS_ITS | Continuity of Care Document ---
:1940 Author Organization [facility] Address [address] [place] [address]- Care Team Providers Name Role Phone Yolis GAMBLE, Billie Primary Care Physician [place] [facility] Date(s): 01/16/19 - 02/20/19 [facility] [address] [place] [address]- [facility] Attending Physician: Yan Roger MD Admitting Physician: Yan Roger MD Allergies, Adverse Reactions, Alerts Substance Reaction [...] 12 tablet, 1 Refills, Maintenance, 02/04/19 15:18:00 [facility], 168, cm... Start Date: 02/04/19 [...] of skin cancer of face, right Active gnosticism and under left nostril. Sees a plastic [...]
--- OUTSIDE RECORDS SUMMARY | 2021-11-10 21:44 | XMS_ITS ---
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 Problem Iron deficiency D50.9 Active 8752 2001 anemia, unspecified iron deficiency anemia type ALLERGIES Substance Reaction Event Type Date Status PCN Unknown Non Drug Allergy Mar, Active Demerol Unknown Non Drug Allergy Mar, Active Augmentin Unknown Non Drug Allergy Mar, Active Amoxicillin Unknown Non Drug Allergy Mar, Active ENCOUNTERS Encounter Location Date Diagnosis [facility] [address], [facility] [address] [place] [address] [facility] [address], [facility] [address] [place] [place] [address] [facility] [address], Ul cerative pancolitis [facility] [address] without complica tion [address] K51.00 [facility] [address], [facility] [address] [place] [address] [facility] [address], [facility] [address] [address] [facility] [address] Apr, [facility] [address] [place] [address] [facility] [address] Feb, [facility] [address] [place] [place] [address] [facility] [address] Suite Jan, Du odenitis K29.80 [facility] [address] [address] [facility] [address] Nov, [facility] [address] [place] [address] [facility] [address] Nov, Ir on deficiency anemia, [facility] [address] unspecified iron [address] deficiency anemi a type D50.9 and Ulcera tive pancolitis witho ut complication K51 .00 [facility] [address] Jul, [facility] [address] [address] [facility] [address] Jul, [facility] [address] [address] [facility] [address] May, [place] on deficiency anemia, [facility] [address] unspecified iron [address] deficiency anemi a type D50.9 ; Ulcerati ve pancolitis witho ut complication K51 .00 ; Duodenitis K29.8 0 and Weight loss R63. 4 [facility] [address] Jan, Ir on deficiency anemia, [facility] [address] unspecified iron [address] deficiency anemi a type D50.9 [facility] [place] [address] [place] [address] Jan, [place] [id number] [facility] [address] Dec, Ir on deficiency anemia, [facility] [address] unspecified iron [address] deficiency anemi a type D50.9 and Ulcera tive pancolitis witho ut complication K51 .00 [facility] [address] Dec, [facility] [address] [address] [facility] [address] Nov, [facility] [address] [place] [address] [facility] [place] [address] [place] [address] Sep, [place] [phone] [facility] [address] June, [facility] [address] [address] [facility] [address] June, Ul cerative pancolitis [facility] [address] without complica tion [address] K51.00 [facility] [address] Aug, 2014 [facility] [address] [address] [facility] [address] Aug, 2014 [facility] [address] [address] [facility] [address] Aug, [facility] [address] [address] [facility] [address] Aug, [facility] [address] [address] [facility] [address] Mar, Ul cerative colitis 556.9 [facility] [address] [address] [facility] [address] June, [facility] [address] [place] [address] [facility] [address] May, [facility] [address] [address] [facility] [address] Jan, [facility] [address] [address] [facility] [place] [address] Oct, [place] [id number] [facility] [address] Oct, [facility] [address] [address] [facility] [address] Oct, Ul cerative colitis 556.9 [facility] [address] [address] [facility] [address] Sep, [facility] [address] [address] [facility] [address] Dec, [facility] [address] [address] [facility] [place] [address] 14 Jan, [address] [place] [id number] [facility] [place] [address] Sep, [place] [id number] [facility] [place] [address] Aug, [place] [id number] [facility] [place] [address] Jul, [place] [id number] [facility] [place] [address] 16 Feb, 2007 [place] [id number] [facility] [place] [address] 20 Jul, 2006 [place] [id number] [facility] [place] [address] Apr, [place] [id number] [facility] [place] [address] Nov, [place] [id number] [facility] [place] [address] May, [place] [id number] [facility] [place] [address] Nov, [place] [id number] [facility] [place] [address] Sep[place] [id number] [facility] [place] [address] Aug, [place] [id number] IMMUNIZATIONS Vaccine Route Administration Date Status Influenza Unknown Nov 28, 2017 Administered Influenza Unknown Oct 13, 2017 Administered Flu vaccine no Preserv 3 and > Unknown Nov 24, 2014 A dministered SOCIAL HISTORY Qualifiers Date Current Smoker REASON FOR REFERRAL FUNCTIONAL STATUS PLAN OF CARE Activity Details Follow Up 1 Year Reason: Pending Test CHEM 7 PROFILE Pending Test LIVER PROFILE Pending Test CBC w DIFF Pending Test IRON + IBC (FE) Pending Test FERRITIN Pending Test CBC w DIFF Pending Test IRON + IBC (FE) Pending Test FERRITIN Pending Test CBC w DIFF Future/Pending Procedure UPPER GI ENDOSCOPY 20180101 Future/Pending Procedure COLONOSCOPY [id number] VITAL SIGNS Weight 108 lbs 2020-03-16 Weight 108 lbs 2018-11-12 Weight 108 lbs 2018-05-15 Weight 120 lbs 2018-01-01 Weight 146 lbs 2015-07-01 Weight 159 lbs 2013-03-20 Weight 167 lbs 2011-10-24 Height 65.50 in 2020-03-16 Height 65.50 in 2018-11-12 Height 65.50 in 2018-05-15 Height 65.50 in 2018-01-01 Height 65.50 in 2015-07-01 Height N/A in 2013-03-20 Height 65.50 in 2011-10-24 BMI 17.70 kg/m2 2020-03-16 BMI 17.70 kg/m2 2018-11-12 BMI 17.70 kg/m2 2018-05-15 BMI 19.66 kg/m2 2018-01-01 BMI 23.92 kg/m2 2015-07-01 BMI 26.05 kg/m2 2013-03-20 BMI 27.36 kg/m2 2011-10-24 Heart Rate 88 /min 2018-05-15 Heart Rate 84 /min 2013-03-20 Blood pressure systolic 000 mm Hg 2020-03-16 Blood pressure diastolic 00 mm Hg 2020-03-16 MEDICATIONS Medication Instructions Dosage Frequency Start End Duration Statu s Date Date Famotidine 40 MG Orally Once a 1 tablet 24h 30 Active day at bedtime Estradiol 0.5 MG Orally Once a 1 tablet 24h Active day Glucosamine Chondr Orally Once a 2 capsule Active Complex 500-400 MG day/ as needed with a meal medroxyPROGESTERone Orally every 1 tablet Active Acetate 5 MG other day with food Atorvastatin Calcium Orally Once a 1 tablet 24h Active 20 MG day Famotidine 20 MG Orally Once a 2 tablet 24h May, day(s ) Active day at bedtime 2018 Spiriva HandiHaler 18 Inhalation 1 capsule 24h Active MCG Once a day Delzicol 400 MG TAKE FOUR 30 Active CAPSULES BY MOUTH TWICE A DAY Montelukast Sodium 10 Orally Once a 1 tablet 24h Active MG day in the evening Diclofenac Potassium Orally Once a 1 tablet 24h Active 50 MG day Losartan Potassium 50 Orally Once a 1 tablet 24h Active MG day Dulera 200-5 MCG/ACT Inhalation 2 puffs 12h Active Twice a day Delzicol 400 MG Orally BID 4 capsules 12h Aug, tive 2014 Theophylline ER 400 Acti ve MG Singulair 10 MG Orally Once a 2 tablets Active day/ generic brand Ventolin HFA 108 (90 Inhalation prn 2 puffs as Active Base) MCG/ACT needed Tylenol 325 MG 2 tablet Active as needed PROCEDURES Procedure Date Ordered Result Body Site DOC MEDS VERIFIED W/PT OR RE Mar 20, 2013 BP SCR PRFRM RCMDD DEFIND SCR INTVL Nov 12, 2018 PRES/ABSN URINE INCON ASSESS May 15, 2018 PRES/ABSN URINE INCON ASSESS Nov 12, 2018 BP SCR PRFRM RCMDD DEFIND SCR INTVL May 15, 2018 PRES/ABSN URINE INCON ASSESS July 01, 2015 PT TOBACCO SCREEN RCVD TLK Nov 12, 2018 DOC MEDS VERIFIED W/PT OR RE May 15, 2018 DOC MEDS VERIFIED W/PT OR RE July 01, 2015 FLU IMMUNIZE ORDER/ADMIN Jan 01, 2018 PT TOBACCO SCREEN RCVD TLK Jan 01, 2018 TV 21+ Minutes Mar 16, 2020 FLU IMMUNIZE ORDER/ADMIN July 01, 2015 BMI<30 AND >=22 CALC & DOCU July 01, 2015 PRES/ABSN URINE INCON ASSESS Jan 01, 2018 DOC MEDS VERIFIED W/PT OR RE Jan 01, 2018 PT TOBACCO SCREEN RCVD TLK May 15, 2018 COLORECTAL CA SCREEN DOC REV July 01, 2015 BP SCR PRFRM RCMDD DEFIND SCR INTVL July 01, 2015 BMI<30 AND >=22 CALC & DOCU Jan 01, 2018 BP SCR PRFRM RCMDD DEFIND SCR INTVL Jan 01, 2018 DOC MEDS VERIFIED W/PT OR RE Nov 12, 2018 PT TOBACCO SCREEN RCVD TLK July 01, 2015 RESULTS Name Result Date Reference Range PROFILE, RANDOM 2018-12-16 NA 142 135-145 K 4.0 3.3-5.1 CL 106 96-108 CO2 26 22-29 ANION GAP 14 12-20 GLUCOSE,RANDOM 88 60-115 BUN 13 9-16 CREATININE 0.82 0.5-1.4 ESTIMATED GFR > 60 PROTEIN, TOTAL 7.0 6.5-8.0 ALBUMIN 4.4 3.5-5.0 BILIRUBIN, TOTAL 0.5 0.0-1.0 CALCIUM 9.8 8.4-10.2 ALK. PHOS. 57 39-117 GOT 21 5-31 GPT 15 0-31 LIVER PROFILE 2018-12-16 BILIRUBIN, DIRECT 0.2 0.0-0.5 MAGNESIUM 2018-12-16 MAGNESIUM 2.0 1.6-2.6 LIPOPROTEIN FRACTIONATION (LIPID PANEL) CHOLESTEROL 165 TRIGLYCERIDE 54 HDL 64 LDL CALCULATED 91 FREE T4 (FT4) 2018-12-16 FREE T4 1.14 0.71-1.85 TSH (THYROID STIMULATING HORMONE) 2018-12-16 TSH 0.97 0.32-4.0 IRON + IBC (FE) 2018-12-16 IRON 75 30-160 IBC 289 228-428 % SATURATION 26 15-50 FERRITIN 2018-12-16 FERRITIN 77 10-250 B12 2018-12-16 B12 614 200-900 FOLATE 2018-12-16 FOLATE 18.0 > OR = 4.0 CBC w DIFF 2018-12-16 WBC 8.5 4.8-10.8 ABSOLUTE NEUTROPHIL COUNT 5.5 2.2-7. 9 RBC 4.43 4.20-5.50 HEMOGLOBIN 14.7 12.0-16.0 HEMATOCRIT 43.2 37-47 MCV 97.4 80-98 MCH 33.1 27.0-33.0 MCHC 34.0 31.0-35.0 PLATELET COUNT 285 160-400 RDW 11.1 11.0-16.0 NEUTROPHILS 64.8 45-73 LYMPHOCYTES 24.5 20-40 MONOCYTES 8.3 2-11 EOSINOPHILS 1.4 0-4 BASOPHILS 1.0 0-2 THEOPHYLLINE 2018-12-16 THEOPHYLLINE 3.3 IRON + IBC (FE) 2018-04-09 IRON 122 30-160 IBC 309 228-428 % SATURATION 39 15-50 FERRITIN 2018-04-09 FERRITIN 63 10-250 CBC w DIFF 2018-04-09 WBC 7.4 4.8-10.8 ABSOLUTE NEUTROPHIL COUNT 4.6 2.2-7. 9 RBC 4.49 4.20-5.50 HEMOGLOBIN 14.3 12.0-16.0 HEMATOCRIT 42.5 37-47 MCV 94.8 80-98 MCH 32.0 27.0-33.0 MCHC 33.7 31.0-35.0 PLATELET COUNT 279 160-400 RDW 13.6 11.0-16.0 NEUTROPHILS 62.6 45-73 LYMPHOCYTES 26.8 20-40 MONOCYTES 7.8 2-11 EOSINOPHILS 1.6 0-4 BASOPHILS 1.2 0-2 SED RATE (ESR) 2018-04-09 SED RATE 12 0-20 THEOPHYLLINE 2018-04-09 THEOPHYLLINE 7.8 (L) GI BIOPSY 2018-01-24 G.I. BIOPSY IRON + IBC (FE) 2018-01-01 IRON 58 30-160 IBC 363 228-428 % SATURATION 16 15-50 FERRITIN 2018-01-01 FERRITIN 38 10-250 VITAMIN B12 AND FOLATE 2018-01-01 B12 459 200-900 FOLATE 5.1 > OR = 4.0 CBC w DIFF 2018-01-01 WBC 6.9 4.8-10.8 ABSOLUTE NEUTROPHIL COUNT 4.2 2.2-7. 9 RBC 4.38 4.20-5.50 HEMOGLOBIN 12.3 12.0-16.0 HEMATOCRIT 37.4 37-47 MCV 85.5 80-98 MCH 28.1 27.0-33.0 MCHC 32.8 31.0-35.0 PLATELET COUNT 307 160-400 RDW 20.3 11.0-16.0 NEUTROPHILS 60.2 45-73 LYMPHOCYTES 26.3 20-40 MONOCYTES 9.0 2-11 EOSINOPHILS 3.1 0-4 BASOPHILS 1.5 0-2 GI BIOPSY 2015-10-06 G.I. BIOPSY GI BIOPSY 2011-11-09 G.I. BIOPSY REASON FOR VISIT PA- [employer] (not covered), ov recall, patient presents today for ulcerative pancolitis, Telehealth , Change in MG for Famotidine , famotidine 20 mg on back order/needs r/f, Delzicol Sushma ROSAS, 1 yr ov recall, patient presents today for Follow up pancolitis, delzicol, Delzicol, Patient presents today for Ulcerative pancolitis/Anemia, ulcerative pancolitis, MEAGHAN, patient presents today for Drop inHg, Cancelled OV by provider, patient presents today for Drop in Hg, Looking for soon appointment, Ulcerative colitis, Please send over OSMO prep, f/u for U/C, called in script , refill request, Needs refill, refill request, o/v recall, different med for Asacol, refill, RX , Bowel Prep RX, Recall/colit is, needs referral for ov on 10-24-11, refill Insurance Providers [facility] Member Patient Patient Patient Patient Patient Subscriber Subscriber Subscriber Group Insurance Plan Plan Plan Plan ID Relationship Address Phone Name Date of ID Name Date of No Type Insurance Insurance Insurance Coverage to Subscriber Address Phone Name Dates [facility] [phone] [facility] [id number] PROFESSION [id number] [place] CLAIMS [address] [facility] [address] MEDICARE [phone] MEDICARE self [place] [id number] [place] [address] [place] [address]
--- OUTSIDE RECORDS SUMMARY | 2021-11-10 21:44 | XMS_ITS | Continuity of Care Document ---
:1940 Author Organization [facility] Address [address] [place] [address]- Care Team Providers Name Role Phone Yolis GAMBLE, Billie Primary Care Physician Encounter [facility] [place] Date(s): 10/16/18 - 02/13/19 [facility] [address] [place] [address]- [facility] Attending Physician: Yan Roger MD Admitting Physician: Yan Roger MD Referring Physician: Yan Roger MD Allergies, Adverse Reactions, [...] 12 tablet, 1 Refills, Maintenance, 02/04/19 15:18:00 [employer], [facility], 168, cm... Start Date: 02/04/19 [...] of skin cancer of face, right Active samaritan and under left nostril. Sees a plastic [...] off - states understanding of risks(Confirmed) Smoker, 02/15 ppd. Has smoked on/off Active since age 18(Confirmed) Social History Social History Type Response Smoking Status Current some day smoker; Tob acco user in household: Yes entered on: 02/02/16 Sex
--- OUTSIDE RECORDS SUMMARY | 2021-11-10 21:44 | XMS_ITS | Continuity of Care Document ---
:1940 [facility] Address [address] [place] [address], [address] [place] [address]- Care Team Providers Name Role Phone Yolis GAMBLE, Billie Primary Care Physician [place] [facility] [place]18/20 [facility] [address] [place] [address], [address] [place] [address] Allergies, Adverse Reactions, Alerts Substance Reaction [...] Maintenance, 02/19/20 9:02:00 EST, Tablet, [facility], 168, cm, 02/19/19 12:13:00 EST, [...] Refills, Maintenance, 02/19/20 9:02:00 EST, [facility], 168, cm, 02/19/19 12:13:00 EST, [...] of skin cancer of face, right Active pentecostalism and under left nostril. Sees a plastic [...] forearm radius. (Dexa scan done 09/06/18 at [facility])(Confirmed) Smoker, 1/4 ppd. Has smoked on/off Active since age 18(Confirmed) Social History Social History Type Response Smoking Status Current some day smoker; Tob acco user in household: Yes entered on: 02/02/16 Sex
--- OUTSIDE RECORDS SUMMARY | 2021-11-10 21:44 | XMS_ITS | Continuity of Care Document ---
:1940 Author Organization [facility] Address [address] [place] [address]- Care Team Providers Name Role Phone Bola Mclaughlin MD Primary Care Physician [place] [facility] [place] 10[place]18/21 [facility] [address] [place], [place] [address] Attending Physician: Yan Roger MD Admitting Physician: Yan Roger MD Allergies, Adverse Reactions, Alerts No Known [...] probably already got this at rehab Medications atorvastatin 20 mg oral tablet 1 tablet = [...] of skin cancer of face, right Active lutheran and under left nostril. Sees a plastic [...] forearm radius. (Dexa scan done 09/06/18 at [facility])(Confirmed) Smoker, 1/4 ppd. Has smoked on/off Active since age 18(Confirmed) Vital Signs Most recent to oldest [Reference Range]: 1 Height 160 cm (10/11/21 3:14 PM) Weight 50.0 kg (10/11/21 3:14 PM) Pulse Rate [55-90 bpm] 73 bpm (10/11/21 3:14 PM) Body Mass Index [18.5-24.99] 19.53 (10/11/21 3:14 PM) Blood Pressure [90-138/55-84 mm Hg] 118/76 mm Hg (10/11/21 3:14 PM) Blood pressure sites Arm, right (10/11/21 3:14 PM) Weight Obtained Via Patient/family stated (10/11/21 3:14 PM) Social History Social History Type Response Smoking Status Current some day smoker; Tob acco user in household: Yes entered on: 02/02/16 Sex Care Team PersonnelName: Bola Mclaughlin MD Address: [address] [place] [address] [address] [place], [place] [address]
--- OUTSIDE RECORDS SUMMARY | 2021-11-10 21:44 | XMS_ITS | Continuity of Care Document ---
:1940 Author Organization [facility] Address [address] [place] [address]- Care Team Providers Name Role Phone Bola Mclaughlin MD Primary Care Physician Encounter [facility] [place] Date(s): 06/30/21 - 10/28/21 [facility] [address] [place], [place] [address] Attending Physician: Yan Roger MD Admitting [...] forearm radius. (Dexa scan done 09/06/18 at [facility])(Confirmed) Smoker, 1/4 ppd. Has smoked on/off Active since age 18(Confirmed) Social History Social History Type Response Smoking Status Current some day smoker; Tob acco user in household: Yes entered on: 02/02/16 Sex Care Team PersonnelName: Bola Mclaughlin MD Address: [address] [place] [address] [address] [place] [address]-
--- OUTSIDE RECORDS SUMMARY | 2021-11-10 21:44 | XMS_ITS | Continuity of Care Document ---
:1940 Author Organization [facility] Address [address] [place] [address]- Care Team Providers Name Role Phone Not on Staff, PCP Primary Care Physician Unavailable Encounter [facility] Date(s): 11/04/20 - 12/01/20 [facility] [address] [place], [place] [address] Attending Physician: Stanley Yusuf MD Referring Physician: Not on Staff, Referring
--- OUTSIDE RECORDS SUMMARY | 2021-11-10 21:44 | XMS_ITS | Continuity of Care Document ---
:1940 Author Organization [facility] Address [address] [place] [address]- Care Team Providers Name Role Phone Not on Staff, PCP Primary Care Physician Unavailable Encounter [facility] [place] Date(s): 06/23/20 - 10/21/20 [facility] [address] [place], [place] [address] Attending Physician: Yan Roger MD Admitting Physician: [...] Maintenance, 02/19/20 9:02:00 EST, Tablet, [facility], 168, cm, 02/19/19 12:13:00 EST, [...] Refills, Maintenance, 02/19/20 9:02:00 EST, [facility], 168, cm, 02/19/19 12:13:00 EST, [...] of skin cancer of face, right Active denominational and under left nostril. Sees a plastic [...] forearm radius. (Dexa scan done 09/06/[address] [facility])(Confirmed) Smoker, 1/4 ppd. Has smoked on/off Active since age 18(Confirmed) Social History Social History Type Response Smoking Status Current some day smoker; Tob acco user in household: Yes entered on: 02/02/16 Sex
--- OUTSIDE RECORDS SUMMARY | 2021-11-10 21:44 | XMS_ITS | Continuity of Care Document ---
:1940 Author Organization [facility] Address Unavailable , Care Team Providers Name Role Phone Billie Lagos MD Primary Care Physician Encounter [facility] [place] Date(s): 11/12/20 - 12/12/20 [facility] Attending Physician: Melissa Gotti Admitting Physician: Melissa Gotti Referring Physician: Melissa Gotti Allergies, Adverse Reactions, Alerts Substance Reaction Severity [...] of skin cancer of face, right Active protestant and under left nostril. Sees a plastic [...] forearm radius. (Dexa scan done 09/06/18 at [facility])(Confirmed) Smoker, 1/4 ppd. Has smoked on/off Active since age 18(Confirmed) Social History Social History Type Response Smoking Status Current some day smoker; Tob acco user in household: Yes entered on: 02/02/16 Sex
--- OUTSIDE RECORDS SUMMARY | 2021-11-10 21:44 | XMS_ITS | Continuity of Care Document ---
:1940 Author Organization [facility] Address Unavailable , Care Team Providers Name Role Phone Billie Lagos MD Primary Care Physician En[place] [facility] [place] [facility] [id number] Date(s): 03/14/21 - 04/16/21 [facility] Attending Physician: Paco Eason MD Admitting Physician: Paco Eason MD Allergies, Adverse Reactions, Alerts No Known [...] forearm radius. (Dexa scan done 09/06/18 at [facility])(Confirmed) Smoker, 1/4 ppd. Has smoked on/off Active since age 18(Confirmed) Social History Social History Type Response Smoking Status Current some day smoker; Tob acco user in household: Yes entered on: 02/02/16 Sex
--- OUTSIDE RECORDS SUMMARY | 2021-11-10 21:44 | XMS_ITS | Continuity of Care Document ---
:1940 Author Organization [facility] Address [address] [place] [address]- Care Team Providers Name Role Phone Billie Lagos MD Primary Care Physician Encounter [facility] [place] Date(s): 09/16/19 - 09/23/19 [facility] [address] [place] [address]- [facility] Attending Physician: Yan Roger MD [...] Maintenance, 05/01/19 13:48:00 EDT, Tablet, [facility], 168, cm, 02/19/19 12:13:00 EST, [...] Refills, Maintenance, 05/01/19 13:52:00 EDT, [facility], 168, cm, 02/19/19 12:13:00 EST, [...] forearm radius. (Dexa scan done 09/06/18 at [facility])(Confirmed) Smoker, 1/4 ppd. Has smoked on/off Active since age 18(Confirmed) Social History Social History Type Response Smoking Status Current some day smoker; Tob acco user in household: Yes entered on: 02/02/16 Sex
--- OUTSIDE RECORDS SUMMARY | 2021-11-10 21:44 | XMS_ITS | Continuity of Care Document ---
:1940 Author Organization [facility] Address [address] [place] [address]- Care Team Providers Name Role Phone Billie Lagos MD Primary Care Physician Encounter [facility] [place] Date(s): 10/16/18 - 02/13/19 [facility] [address] [place] [address]- [facility] Attending Physician: Yan Roger MD [...] 12 tablet, 1 Refills, Maintenance, 02/04/19 15:18:00 Dexetra, [facility], 168, cm... [...] of skin cancer of face, right Active christianity and under left nostril. Sees a plastic [...] off - states understanding of risks(Confirmed) Smoker, / ppd. Has smoked on/off Active since age 18(Confirmed) Social History Social History Type Response Smoking Status Current some day smoker; Tob acco user in household: Yes entered on: 02/02/16 Sex
--- OUTSIDE RECORDS SUMMARY | 2021-11-10 21:44 | XMS_ITS | Continuity of Care Document ---
:1940 Author Organization [facility] Address [address] [place] [address], [address] [place] [id number]- Care Team Providers Name Role Phone Yolis GAMBLE, Billie Primary Care Physician Encounter [facility] [place] Date(s): 10/21/20 - 11/20/20 [facility] [address] [place] [address], [address] [place] [id number] Allergies, Adverse Reactions, Alerts Substance Reaction [...] radius. (Dexa scan done 09/06/18 at [facility])(Confirmed) Smoker, 1/4 ppd. Has smoked on/off Active since age 18(Confirmed) Social History Social History Type Response Smoking Status Current some day smoker; Tob acco user in household: Yes entered on: 02/02/16 Sex
--- OUTSIDE RECORDS SUMMARY | 2021-11-10 21:44 | XMS_ITS | Continuity of Care Document ---
:1940 Author Organization [facility] Address [address] [place] [address]- Care Team Providers Name Role Phone Not on Staff, PCP Primary Care Physician Unavailable Encounter [facility] [place] Date(s): 11/04/20 - 11/11/[address] [address] Discharge Disposition: Transferred to short-term general hospit Attending Physician: Keren Figueroa MD Admitting Physician: Stanley Yusuf MD Referring Physician: Not on Staff, Referring MD Allergies, Adverse Reactions, Alerts Substance Reaction [...] scheduleII opioid drug. Start Date: 11/11/20 Status: OrderedAcetaminophen Tablet 650 mg, Tablet, By Mouth, Every 4 hours, PRN for Pain , Mild, Temperature Greater than 100.5, Routine, 11/04/20 20:45:00 EDT Start Date: 11/04/20 Stop Date: 11/12/20 Status: Discontinuedaspirin 81 mg oral delayed release tablet 81 [...] oral tablet 50 mg, Tablet, By Mouth, 11/11/20 9:00:00 EDT Start Date: 11/11/20 Stop Date: 11/11/20 Status: Completedlosartan 50 mg oral tablet 50 mg, 1, [...] 05/01/19 13:36:00 EDT Start Date: 05/01/19 Status: Orderedsotalol 80 mg oral tablet 80 mg, Tablet, By Mouth, 11/11/20 9:00:00 EDT Start Date: 11/11/20 Stop Date: 11/11/20 Status: CompletedSpiriva HandiHaler 18 mcg Inhalation Capsule 1 capsule, [...] of skin cancer of face, right Active restorationist and under left nostril. Sees a plastic [...] forearm radius. (Dexa scan done 09/06/18 at [facility])(Confirmed) Smoker, 1/4 ppd. Has smoked on/off Active since age 18(Confirmed) Results Radiology Reports Exam Date Time Procedure Performing Provider Status 11/10/20 1:51 PM Knee 1 or 2 Views Right Tara Westbrook; Auth (Ve rified) Notes:(Knee 1 or 2 Views Right) Reason For Exam: Decreased ROMRESULT: Knee 1 or 2 Views Right Knee 1 or 2 Views Right, views Reason: Decreased ROM; Clinical Question(s): Fracture COMPARISON: None. FINDINGS: There is no evidence of acute or healing fracture, dislocation or bone lesion. Moderate tricompartmental degenerative osteoarthritis but no evidence of osteochondral defect or intra-articular loose body. Small knee joint effusion effusion. Vascular calcifications. IMPRESSION: Moderate tricompartmental degenerative osteoarthritis. Knee joint effusion. WSN: [id number] Ordering Physician: Keren Figueroa Dictated By: Alexander Linder MD Dictated Date/Time: 11/10/20 6:00 pm Reviewed By: Alexander Linder MD Signed By: Alexander Linder MD Signed Date/Time: 11/10/20 6:00 pm Transcribed By: KALYN Transcribed Date/Time: 11/10/20 5:56 pm Exam Date Time Procedure Performing Provider Status 11/05/20 9:31 AM Abdomen AP Yelena [place]; Luca ([facility] ed) Notes:(Abdomen AP) Reason For Exam: pre MRI check;Other:RESULT: XR Abdomen AP XR Abdomen AP INDICATION/CLINICAL QUESTION: Reason: Other:; pre MRI check; Clinical Question(s): Other:. Other: COMPARISON: None FINDINGS: Mild stool retention but otherwise normal bowel gas pattern. No evidence of obstruction. No evidence of pneumoperitoneum on this supine study. No metallic foreign bodies are noted on this study. The lung bases are clear. No acute osseous abnormality. Patient is status post bilateral hip arthroplasties. Mild dextroscoliosis of the lumbar spine. IMPRESSION: Mild stool retention but unremarkable abdominal radiograph. Patient is status post bilateral total hip arthroplasties. No metallic foreign bodies are noted on the study. I have personally reviewed the images and I agree with this report. WSN: [id number] Ordering Physician: Tony Davidson Dictated By: Justice Sprague DO Dictated Date/Time: 11/05/20 9:45 am Reviewed By: Ricardo Reese MD Signed By: Ricardo Reese MD Signed Date/Time: 11/05/20 9:50 am Transcribed By: KALYN Transcribed Date/Time: 11/05/20 9:38 am Exam Date Time Procedure Performing Provider Status 11/05/20 9:31 AM Chest Single Frontal View Yelena [place]; Au th (Verified) Notes:(Chest Single Frontal View) Reason For Exam: Other:pre mri-check;Other: RESULT: Chest Single Frontal View Chest Single Frontal View Reason: Other:pre mri-check; Clinical Question(s): Other:; pre MRI check COMPARISON: 11/05/2013 and 04/11/2011 FINDINGS: LINES AND TUBES: None. LUNGS AND PLEURA: Mild symmetric and stable apical scarring. Otherwise clear lungs. Normal pulmonary vascularity. No pleural effusion. No pneumothorax. HEART, MEDIASTINUM AND CHIARA: Heart is normal in size. Aorta is somewhat tortuous. BONES AND SOFT TISSUES: No acute abnormality. Mild degenerative changes of the bilateral shoulders. IMPRESSION: No acute abnormality. I have personally reviewed the images and I agree with this report. WSN: [id number] Ordering Physician: Tony Davidson Dictated By: Justice Sprague DO Dictated Date/Time: 11/05/20 9:44 am Reviewed By: Ricardo Reese MD Signed By: Ricardo Reese MD Signed Date/Time: 11/05/20 9:49 am Transcribed By: KALYN Transcribed Date/Time: 11/05/20 9:35 am Vital Signs Most recent to oldest 1 2 3 4 [Reference Range]: Weight 47.2 kg (11/04/20 6:46 PM) Oxygen Saturation 95 % 94 % 95 % [94-100 %] (11/11/20 11:18 AM) (11/11/20 8:31 AM) (11/10/20 11:28 PM ) Pulse Rate [55-90 52 bpm 62 bpm 62 bpm bpm] *L* (11/11/20 8:31 AM) (11/11/20 7:58 AM) (11/11/20 11:18 AM) Blood Pressure 141/93 mm Hg 139/86 mm Hg 139/86 mm Hg 139/86 mm Hg [90-138/55-84 mm Hg] *H* *H* *H* *H* (11/11/20 11:18 AM) (11/11/20 8:31 AM) (11/11/20 7:58 AM) (11/11/20 7:58 AM) Respiratory Rate 16 br/min 18 br/min 18 br/min [16-30 br/min] (11/11/20 11:29 AM) (11/11/20 11:18 AM) (11/11/20 8:31 AM) Temperature 98.8 DegF 98.4 DegF 99.6 DegF [96.8-100.4 DegF] (11/11/20 11:18 AM) (11/11/20 8:31 AM) (11/10/20 11: 28 PM) Mode of Delivery Room air Room air Room air (Oxygen) (11/11/20 11:18 AM) (11/11/20 8:31 AM) (11/10/20 11:28 PM ) Blood pressure sites Arm, right Arm, right Arm, right (11/11/20 11:18 AM) (11/11/20 8:31 AM) (11/10/20 11:28 PM ) Temperature Route Temporal Temporal Temporal (11/11/20 11:18 AM) (11/11/20 8:31 AM) (11/10/20 11:28 PM ) Dry Weight 47.2 kg (11/04/20 6:46 PM) Weight Obtained Via Bed scale (11/04/20 6:46 PM) Dry Weight Obtained Bed scale Via (11/04/20 6:46 PM) Social History Social History Type Response Smoking Status Current some day smoker; Tob acco user in household: Yes entered on: 02/02/16 Sex
--- OUTSIDE RECORDS SUMMARY | 2021-11-10 21:44 | XMS_ITS | Continuity of Care Document ---
:1940 Author Organization [facility] Address Unavailable , Care Team Providers Name Role Phone Billie Lagos MD Primary Care Physician [place] [facility] [id number] Date(s): 12/30/20 - 04/08/21 [facility] Attending Physician: Paco Eason MD Admitting Physician: Paco Eason MD Allergies, Adverse Reactions, Alerts Substance Reaction [...] of skin cancer of face, right Active catholic and under left nostril. Sees a plastic [...] forearm radius. (Dexa scan done 09/06/18 at [facility])(Confirmed) Smoker, 1/4 ppd. Has smoked on/off Active since age 18(Confirmed) Social History Social History Type Response Smoking Status Current some day smoker; Tob acco user in household: Yes entered on: 02/02/16 Sex
--- OUTSIDE RECORDS SUMMARY | 2021-11-10 21:44 | XMS_ITS | Continuity of Care Document ---
:1940 Author Organization [facility] Address [address] [place] [address]- Care Team Providers Name Role Phone Billie Lagos MD Primary Care Phys[id number] [address] [place] [address]- Attending Physician: Danis Burton MD Admitting Physician: Danis Burton MD Referring Physician: Not on Staff, Referring [...] of skin cancer of face, right Active baptist and under left nostril. Sees a plastic [...] forearm radius. (Dexa scan done 09/06/18 at [facility])(Confirmed) Smoker, 1/4 ppd. Has smoked on/off Active since age 18(Confirmed) Vital Signs Most recent to oldest [Reference Range]: 1 Height 168.00 cm (11/22/20 9:36 AM) Weight 45.5 kg (11/22/20 9:36 AM) Oxygen Saturation [94-100 %] 95 % (11/22/20 9:36 AM) Pulse Rate [55-90 bpm] 70 bpm (11/22/20 9:36 AM) Body Mass Index [18.5-24.99] 16.12 *L* (11/22/20 9:36 AM) Blood Pressure [90-138/55-84 mm Hg] 100/56 mm Hg (11/22/20 9:36 AM) Mode of Delivery (Oxygen) Room air (11/22/20 9:36 AM) Blood pressure sites Arm, left (11/22/20 9:36 AM) Weight Obtained Via Patient/family stated (11/22/20 9:36 AM) Social History Social History Type Response Smoking Status Current some day smoker; Tob acco user in household: Yes entered on: 02/02/16 Sex
--- OUTSIDE RECORDS SUMMARY | 2021-11-10 21:44 | XMS_ITS | Continuity of Care Document ---
:1940 Author Organization [facility] Address [address] [place] [address]- Care Team Providers Name Role Phone Not on Staff, PCP Primary Care Physician Unavailable Encounter [facility] [place] Date(s): 09/28/20 - 10/28/20 [facility] [address] [place], [place] [address] Attending Physician: Melissa Gotti Admitting Physician: Melissa [...] = 0.5 mg, By Mouth, Every Sunday, This medication will no longer be refilled after February 2021, # 17 tablet, 0 Refills, Maintenance, 10/22/20 15:53:00 EDT, Tablet, [facility], 168, cm, 02/19/19 12:13:00 EST, Height Start Date: 10/22/20 Status: Orderedfamotidine 40 mg oral tablet 1 [...] Daily, starting on day 16 of each month. This medication will no longer be refilled after February 2021, # 40 tablet, 0 Refills, Maintenance, 10/22/20 15:53:00 EDT, [facility], 168, cm, 02/19/19 12:13:00 EST, Height Start Date: 10/22/20 Stop Date: 11/01/20 Status: Orderedmontelukast 10 mg oral tablet 10 [...] of skin cancer of face, right Active taoism and under left nostril. Sees a plastic [...] forearm radius. (Dexa scan done 09/06/18 at [facility])(Confirmed) Smoker, 1/4 ppd. Has smoked on/off Active since age 18(Confirmed) Social History Social History Type Response Smoking Status Current some day smoker; Tob acco user in household: Yes entered on: 02/02/16 Sex
[2021-11-10 21:49] LABS: Anion Gap 17 (12-20); Blood Urea Nitrogen 32 mg/dL (9-16); Calcium 9.1 mg/dL (8.4-10.2); Carbon Dioxide 22 mmol/L (22-29); Chloride 106 mmol/L (96-108); Estimated Glomerular Filt Rate 54; Glucose Random 85 mg/dL (60-115); Potassium 4.2 mmol/L (3.3-5.1); Sodium 141 mmol/L (135-145)
[2021-11-10 22:09] LABS: COVID-19 Test Negative (Negative)
[2021-11-10 22:37] VITALS: BP 143/90; PULSE 92; RESP 18; TEMP 36.5; O2SAT 98
--- NOTE | 2021-11-10 22:51 | P.HPHOSP_ITS ---
History of Present Illness Date of Service: 11/10/21 Chief Complaint: Left upper extremity weakness 81-year-old female with a past medical history of hypertension, hyperlipidemia, carotid artery stenosis, history of left MCA stroke, carotid artery disease, COPD, ulcerative colitis, skin cancer, AFib presented to the hospital today with a chief complaint of left upper extremity weakness. Patient is a poor histor trisha-mentions yes or no for most of the questions; most of the history obtained from the records and staff. Per ER team patient noted to have left upper extremity weakness/numbness started early in the morning-Unknown last well-known time; patient also had mild speech difficulty. Subsequently brought her to the hospital for further evaluation. Patient denies any numbness tingling or weakness currently. Denies any fever chills cough. Denies any chest pain or palpitations. Denies any GI symptoms. And denies any shortness of breath. 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 EKG was nonischemic Troponins were 17.2-17.2 Labs were benign [facility] Medical History Atrial fibrillation Carotid stenosis COPD (chronic obstructive pulmonary disease) Endometriosis H/O ischemic left MCA stroke HTN (hypertension) Skin cancer Ulcerative colitis Family History Father Lung cancer Social History Household Members: Unknown / Unable to assess Housing: Unknown / Unable to assess Do you presently have visiting nurse or other home services: No Unable to assess alcohol history related to: Unknown Alcohol intake: never Patient Tobacco Use Status: Tobacco use Unknown Advance Directives: Yes Advance Directives on File: Yes Advance Directives Date on File: 11/30/20 service: No Current occupational status: retired Meds Allergies Allergy/AdvReac Type Severity Reaction Status Date / Time Penicillins Allergy Severe ANAPHYLAXIS Verified 11/10/21 23:43 From Demerol AdvReac Intermediate NAUSEA & Uncoded 11/05/20 11:15 VOMITING Active Medications: Current Medications Sodium Chloride (Ns) 1,000 mls @ 999 mls/hr IV .Q1H1M DANIELE Stop: 11/10/21 23:45 Home Medications Medication Instructions Recorded Confirmed Last Taken Type albuterol sulfate 90 mcg/actuation 2 puff inhalation Q2-4H PRN 11/10/21 11/10/21 Unknown History aerosol inhaler Shortness Of Breath atorvastatin 20 mg tablet 1 tab PO DAILY 11/10/21 11/10/21 Unknown History famotidine 20 mg tablet 1 tab PO BID 11/10/21 11/10/21 Unknown History losartan 50 mg tablet 1 tab PO BID 11/10/21 11/10/21 Unknown History mesalamine 400 mg capsule (with 4 cap PO BID 11/10/21 11/10/21 Unknown History delayed release tablets inside) mometasone-formoterol HFA 200 2 puff inhalation BID 11/10/21 11/10/21 Unknown History mcg-5 mcg/actuation aerosol inhaler (Dulera) montelukast 10 mg tablet 1 tab PO DAILY 11/10/21 11/10/21 Unknown History sotalol 80 mg tablet 1 tab PO DAILY 11/10/21 11/10/21 Unknown History theophylline 300 mg 1 tab PO DAILY 11/10/21 11/10/21 Unknown History tablet,extended release,12 hr tiotropium bromide 18 mcg capsule 1 cap inhalation DAILY 11/10/21 11/10/21 Unknown History with inhalation device (Spiriva with HandiHaler) Physical Exam Vital Signs and Narrative: Vital Signs: Last Vital Signs Temp 97.7 F 11/10/21 22:37 Pulse 92 11/10/21 22:37 Resp 18 11/10/21 22:37 BP 143/90 H 11/10/21 22:37 Pulse Ox 98 11/10/21 22:37 O2 Del Method 11/10/21 22:37 BMI result Body Mass Index 17.7 Gen: Appears be in no acute distress HEENT: NCAT, Moist mucosa. Pulmonary: Vesicular breath sounds, fair air entry CVS: Normal S1-S2 Abdomen: BS+, Soft, Nontender Extremities: Warm well perfused Neuro: Alert and awake. Exam limited as patient is less cooperative; but grossly nonfocal. Results Labs CBC and Chem 7: 11/10/21 20:50 11/10/21 21:18 Labs: Laboratory Results - last 24 hr 11/10/21 11/10/21 11/10/21 20:40 20:40 20:50 MCV 92.9 MCH 31.0 MCHC 33.3 RDW 14.6 Plt Count 317 MPV 9.3 L Immature Gran % (Auto) 0.1 Neut % (Auto) 49.2 Lymph % (Auto) 33.6 [place] % (Auto) 10.8 Eos % (Auto) 5.6 H Baso % (Auto) 0.7 Lymph # (Auto) 2.4 [place] # (Auto) 0.8 Eos # (Auto) 0.4 Baso # (Auto) 0.1 Abs Immat Gran (auto) 0.01 Absolute Neuts (auto) 3.5 Absolute Nucleated RBC 0.000 Nucleated RBC % (auto) 0.0 PT Whole Blood PT 13.0 INR Whole Blood INR 1.1 APTT VBG pH VBG pCO2 VBG pO2 VBG HCO3 VBG O2 Saturation VBG Base Excess Anion Gap Estim Creat Clear Calc Estimated GFR POC Glucose 88 Random Glucose Calcium Total Creatine Kinase Troponin I High Sens COVID-19 (MU) COVID-19 Mirametrix Com 11/10/21 11/10/21 11/10/21 20:50 20:50 21:18 MCV MCH MCHC RDW Plt Count MPV Immature Gran % (Auto) Neut % (Auto) Lymph % (Auto) [place] % (Auto) Eos % (Auto) Baso % (Auto) Lymph # (Auto) [place] # (Auto) Eos # (Auto) Baso # (Auto) Abs Immat Gran (auto) Absolute Neuts (auto) Absolute Nucleated RBC Nucleated RBC % (auto) PT 11.2 Whole Blood PT INR 1.0 Whole Blood INR APTT 29.5 VBG pH VBG pCO2 VBG pO2 VBG HCO3 VBG O2 Saturation VBG Base Excess Anion Gap 17 Estim Creat Clear Calc 35.0 Estimated GFR 54 POC Glucose Random Glucose 85 Calcium 9.1 Total Creatine Kinase 157 H D Troponin I High Sens 17.2 H COVID-19 (MU) COVID-19 Mirametrix Com 11/10/21 11/10/21 21:18 21:31 MCV MCH MCHC RDW Plt Count MPV Immature Gran % (Auto) Neut % (Auto) Lymph % (Auto) [place] % (Auto) Eos % (Auto) Baso % (Auto) Lymph # (Auto) [place] # (Auto) Eos # (Auto) Baso # (Auto) Abs Immat Gran (auto) Absolute Neuts (auto) Absolute Nucleated RBC Nucleated RBC % (auto) PT Whole Blood PT INR Whole Blood INR APTT VBG pH 7.48 H VBG pCO2 30 VBG pO2 51 VBG HCO3 22 VBG O2 Saturation 85.0 VBG Base Excess 0.3 Anion Gap Estim Creat Clear Calc Estimated GFR POC Glucose Random Glucose Calcium Total Creatine Kinase Troponin I High Sens COVID-19 (MU) Negative COVID-19 Clin Com See Note Imaging Radiologist's Impressions: Impressions Head CT 11/10/21 20:45 IMPRESSION: No acute intracranial pathology. This critical result was discussed with Dr. Bobbi Moran at 2054 hours on 11/10/2021. It was ascertained that the content and urgency of the report was understood at the time of direct communication. Head/Neck CTA 11/10/21 21:05 IMPRESSION: No new arterial abnormality in the head or neck. 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 Above impression was communicated to Dr. Moran on 11/10/2021 at 9:23 PM Assessment and Plan (1) LUE weakness: Status: Acute Plan 81-year-old female with a past medical history of hypertension, hyperlipidemia, carotid artery stenosis, history of left MCA stroke, carotid artery disease, COPD, ulcerative colitis, skin cancer, AFib presented to the hospital today with a chief complaint of left upper extremity weakness. Patient is a poor historian-mentions yes or no for most of the questions; most of the history obtained from the records and staff. Left upper extremity weakness: Currently improved. CT head showed no acute findings CT angio head and neck showed no acute changes but patient has prior severe stenosis of the origin of the proximal V1 segment of the right vertebral artery, chronic dissection involving with 3 and before; focal severe stenosis of the proximal pericallosal branch of the right anterior cerebral artery Neuro checks PT/OT/speech and swallow eval Aspiration precautions Neurology consult History of hypertension/hyperlipidemia: Continue home statin/losartan History of AFib: Continue home sotalol. Patient not on anticoagulation History of ulcerative colitis: Continue home mesalamine History of COPD: Stable. Continue home inhalers. DVT prophylaxis: SCD boots Code status: Full code Quality Stroke Does the patient have a stroke diagnosis?: No VTE Prior VTE?: No VTE Risk Level:: Medical - moderate - high VTE Device Contraindication: N/A - Device Ordered VTE Drug Contraindication: Treatment Not Indicated
[2021-11-10] MEDS: 0.9 % Sodium Chloride 1,000 ML 999 ML IV (22:55)
[2021-11-10 23:02] LABS: Troponin-I High Sensitivity 17.2 ng/L (<3.5-17.0)
[2021-11-10 23:30] VITALS: BP 132/63; PULSE 83; RESP 16; O2SAT 97
--- NOTE | 2021-11-10 23:56 | PC.NURSE ---
Med list done via last filled scripts from pharmacy. Patient does not know what she takes daily. no list and no family at bedside. Unable to confirm accuracy.
[2021-11-11] VITALS (7 sets, daily range): BP systolic 139–150; BP diastolic 67–76; PULSE 60–88; RESP 15–20; TEMP 36.6–37.1; O2SAT 92–96
--- NOTE | 2021-11-11 00:20 | PC.NURSE ---
Report to overflow RN
[2021-11-11] MEDS: 0.9 % Sodium Chloride Flush 3 ML SYRINGE IVFLUSH ×3 (00:53→20:26)
[2021-11-11 06:10] LABS: MANUAL DIFF FLAG NO
[2021-11-11 06:14] LABS: Basophils Absolute Auto 0.1 X10*3/uL (0.0-0.2); Basophils Percent Auto 0.8 % (0-2); Eosinophils Absolute Auto 0.3 X10*3/uL (0.0-0.4); Eosinophils Percent Auto 5.1 % (0-4); Hematocrit 37.3 % (37.0-47.0); Hemoglobin 12.2 g/dl (12.0-16.0); Imm Gran Abs Auto 0.02 X10*3/uL (0.00-0.03); Imm Gran Pct Auto 0.3 % (0.0-0.4); Lymphocytes Percent Auto 31.2 % (20-40); Mean Corpuscular HGB Conc 32.7 g/dl (31.0-35.0); Mean Corpuscular Hemoglobin 30.4 pg (27.0-33.0); Mean Platelet Volume 9.4 fL (9.4-12.3); Monocytes Absolute Auto 0.7 X10*3/uL (0.1-1.2); Monocytes Percent Auto 11.1 % (2-11); Neutrophils Absolute Auto 3.3 x10*3/uL (2.0-8.3); Neutrophils Percent Auto 51.5 % (45-73); Platelet Count 300 X10*3/uL (160-400); Red Blood Count 4.01 X10*6/uL (4.20-5.50); Red Cell Distribution Width 14.6 % (11.0-16.0); White Blood Count 6.4 X10*3/uL (4.8-10.8)
[2021-11-11 06:30] LABS: Anion Gap 13 (12-20); Blood Urea Nitrogen 23 mg/dL (9-16); Calcium 8.7 mg/dL (8.4-10.2); Carbon Dioxide 25 mmol/L (22-29); Chloride 107 mmol/L (96-108); Creatinine Clr Calc Pharmacy 46.9; Estimated Glomerular Filt Rate > 60; Glucose Random 81 mg/dL (60-115); Potassium 3.9 mmol/L (3.3-5.1); Sodium 141 mmol/L (135-145)
[2021-11-11 06:32] LABS: Cholesterol 133 mg/dL; HDL Cholesterol 45 mg/dL; LDL Cholesterol Calculated 77 mg/dl; Triglycerides 59 mg/dL
--- NOTE | 2021-11-11 07:00 | CA_ITS ---
Transthoracic Echocardiogram Patient (Last, First, Middle): Estrellita Villeda R Gender: Female Date of : 1940 Age: 81 Procedure Date: 11/11/2021 Procedure Type: Transthoracic Echocardiogram Location: ER Height: 167.64 cm Weight: 49.9 kg BSA: 1.55 m2 Heart Rate: bpm BP: 145 / 76 mmHg Printing Plate Clerk: TO Referring MD: Tony Davidson MD Symptoms: CVA Study Quality: Technically Difficult Conclusions: - Normal left ventricular size and systolic function. There is mildly increased left ventricular wall thickness. The visually estimated ejection fraction is between 55-60%. - E/E prime ratio is between 8 and 15 consistent with indeterminate filling pressures. - Normal right ventricular cavity size and systolic function. - There is no evidence of interatrial shunt by color Doppler. - There is mild mitral valve regurgitation. - There is mild tricuspid valve regurgitation. Mildly elevated right atrial pressure. Mild pulmonary hypertension is present. Findings Procedure Information The quality of the study was technically difficult. The study quality is limited by the patients inability to tolerate the test. Left Ventricle Normal left ventricular size and systolic function. There is mildly increased left ventricular wall thickness. The visually estimated ejection fraction is between 55-60%. There is no evidence of regional wall motion abnormalities. Abnormal diastolic function is noted. E/E prime ratio is between 8 and 15 consistent with indeterminate filling pressures. Right Ventricle Normal right ventricular cavity size and systolic function. Atria The left atrium is likely dilated. There is no evidence of interatrial shunt by color Doppler. The right atrium is normal in size. Aortic Valve The aortic valve structure and function is likely normal. There is no aortic valve stenosis. There is no aortic valve regurgitation. Mitral Valve There is mild anterior mitral leaflet thickening. There is mild mitral valve regurgitation. There is no mitral valve stenosis. Pulmonic Valve Normal pulmonic valve structure and function. There is trace pulmonic valve regurgitation. Tricuspid Valve Normal tricuspid valve structure and function. There is mild tricuspid valve regurgitation. Mildly elevated right atrial pressure. Mild pulmonary hypertension is present. Great Vessels All visible segments of the aorta are normal in size. The visualized portions of the pulmonary artery and branches are normal. Venous The inferior vena cava is dilated and collapses greater than 50% with inspiration. Pericardium/Pleural There is no evidence of pericardial effusion. Measurements 2D Linear Measurements IVSd: 0.89 0.6-0.9/0.6-1.0 cm LVIDd: 3.66 3.9-5.3/4.2-5.9 cm LVIDd Index: 2.36 2.4-3.2/2.2-3.1 cm/m2 LVIDs: 2.43 2.0-3.6 cm LVPWd: 1.00 0.7-1.1 cm LA Diam: 2.90 2.7-3.8/3.0-4.0 cm LAIDs Index: 1.87 1.5-2.3 cm/m2 LV Mass: 126.71 67-162/88-224 g LV Mass Index: 81.75 43-95/49-115 g/m2 LVOT Diam: 2.00 3.0+(-)1.3 cm 2D Systolic Function EF 4C: 46.40 >55% EF 2C: 52.20 >55% EF BiP: 51.10 >55% Mitral Valve MV Pk E: 0.70 MV PK A: 1.15 MV Decel Time: 145.00 E/A: 0.60 E'Lateral: 6.53 E'Medial: 5.22 E/E' Med: 13.30 E/E' Lat: 10.60 PHT: 42.00 MVA PHT: 5.24 Decel [place]: 4.88 Aortic Valve AoV Pk Homero: 1.31 AoV Mn Homeor: 0.93 AoV VTI: 0.30 AoV Pk Grad: 7.00 Aov Mn Grad: 4.00 QUENTIN Cont.VTI: 2.21 LVOT LVOT Pk Homero: 0.99 LVOT Mn Homero: 0.66 LVOT VTI: 0.21 LVOT Pk Grad: 4.00 LVOT Mn Grad: 2.00 LVOT Diam: 2.00 LVOT Area: 3.14 Diastolic Function MV Pk E: 0.70 MV Pk A: 1.15 E/A: 0.60 E'Medial: 5.22 E/E' Med: 13.30 E' Laterial: 6.53 E/E' Lat: 10.60 Right Ventricle TAPSE (mm): 28.00 TVS' Homero: 14.30 Tricuspid Valve TR Pk Homero: 2.96 TR Pk Grad: 35.00 RA Press: 8.00 RVSP: 43.00 Great Vessels Aorta Sinus of Valsalva: 3.27 2.0-3.5 cm Ao Asc: 3.10 2.1-3.4 cm Updated in Other Vendor System with Status of Final Rodri Galeano MD electronically signed on 11/11/2021 4:34:50 PM with status of Final
[2021-11-11 07:36] LABS: Glucose, Whole Blood 83 mg/dL (60-115)
--- NOTE | 2021-11-11 09:10 | PHA.MEDREC ---
Pharmacy Consult ? Medication Reconciliation Pharmacy has completed the medication reconciliation. Spoke to pt, first medication she named was theophylline; able to name most medications. Called [facility] pharmacy to confirm med list and employee noted she has not filled the theophylline since May for 90 day supply.
--- NOTE | 2021-11-11 09:55 | MHC.CM.PN ---
Patient is documented to be a poor Historian; CM spoke with Sister/HCP/Roxanne @ [phone] and addressed IMM with Roxanne (will mail original to her and place a copy on the chart). Patient has been living alone in a house and not requiring any DME and only receiving MOW's but per Roxanne, it has not been going well and she hopes the plan will be STR. PT is recommending home with services. Roxanne has taken Patient home to her house in the past and she is unable to do that again. CM has initiated and will follow for dc planning. Patient has received Moderna/Covid vax x3 and her PCP is Dr. Mclaughlin.
--- NOTE | 2021-11-11 11:00 | MHC.STROKE ---
Addendum entered by Adela Ravi RN 11/11/21 14:34: I CONFIRMED WITH THE PATIENT THAT SHE IS ALLERGIC TO ASPIRIN, SHE ALSO IS REFUSING THE COMPRESSION DEVICES. THIS WAS REPORTED TO DR MARINA. Addendum entered by Adela Ravi RN 11/11/21 11:17: I CANNOT IDENTIFY AN AFIB HISTORY, SHE WAS ON SOTOLOL, HAD A HOLTER IN THE PAST, SHE ALSO IS NOT ON AN ANTIPLATELET AGENT. Original Note: 11/10/212028 EMS PRE-NOTIFICATION, STROKE ALERT . ARRIVED AT 2032, EXAMINED BY DR. SHERMAN AND DIRECT TO CT AND CTA H/N. NO BLEED, NO LVO. SEE HER NOTE. EXCLUDED FROM TPA BASED ON UNKNOWN LKW TIME. SHE DID PASS THE SWALLOW SCREEN PRIOR TO PO. SPEECH HAS BEEN CONSULTED DURING THIS ADMISSION. PATIENT IS KNOWN TO STROKE SERVICE FROM 11/04/20 WHEN SHE CAME IN WITH A LARGE LEFT MCA M2 OCCLUSION, R VERT DISSECTION AND WAS TRANSFERRED TO [facility]. NOT A THROMBECTOMY CANDIDATE AT THAT TIME AND SHE WAS NOT IN THE WINDOW FOR TPA AT THAT TIME EITHER. SHE IS SEEN BY [facility] SPEECH AN OUTPATIENT. SHE HAS RIGHT SIDED WEAKNESS. THE SPEECH THERAPIST MENTIONED THAT THE PATIENT HAS PERIODS OF DECREASED LOC AND DROWSINESS. I DID PROVIDE SOME STROKE EDUCAITON BUT THE PATIENT WILL NEED REINFORCEMENT. NEUROLOGY CONSULT PENDING.
--- NOTE | 2021-11-11 12:00 | MHC.SL.SWA ---
Addendum entered and electronically signed by Maryanne Lazcano MA, CCC-MICA PATCHER 11/11/21 18:52: D.S. Original Note: Risk of Aspiration Due to: Neurological Condition History of Pneumonia Reduced Cognition Dysphasia Diet Status: Liquid Consistency and Strategies for Safe Swallow: Liquid Intake Recommendation: Thin Liquid Intake Strategies: Small Sips Solid Food Consistency: Dietary Recommendations: Regular Additional Modifications to Solid Foods: Moisten foods with sauces and/or gravy. Oral Medication Intake: Whole with Liquid Please contact the pharmacy regarding appropriate crushable or liquid drug formulations that are available whenever modified delivery is recommended. Compensatory Strategies and Precautions to be Taken for Safe Swallow: Sitting Upright (90 deg) Liquids from Cup Alternate Liquids/Solids Avoid Specific Foods Supervision While Eating and Drinking for Safe Swallow: Total Supervision (1:1) Foods to Avoid: Avoid dry, sticky, and tough to chew foods. Swallowing Recommended Treatments: Compens. Strategy Educat. Recommendation for Speech: Outpatient Speech Therapy Inpatient Speech Therapy During MICA PATCHER visit, RN noted that MD recently cleared pt for regular diet. Diet order stated NPO in Expanse. Pt expressed she was hungry upon MICA PATCHER's arrival. PO trials were given. Pt reports that would like to see the dentures to get her teeth fixed but has been unable to go. Pt reports no difficulties eating or drinking. Pt reports taking pills whole with liquid without problems. This pt was seen for outpatient evaluation last month for language & cognition. No standout differences in either as compared to end of September: moderately-severely impaired cognition characterized by reduced attention and short term memory. During outpatient eval, pt was observed to close eyes and doze off mid task/mid conversation. This behavior observed 1X today at bedside during conversation but not during PO trials. Pt was fully awake and alert for PO. Upon oral mech, pt presents with reduced ROM anteriorly. Pt has minimal teeth, some broken, in front of mouth. B/c of dentition status pt presents with moderately prolonged mastication. Pt able to tolerate variety of consistencies. Recommend UPGRADE to REGULAR solids, THIN liquids, pills WHOLE with liquid or puree. Avoid dry, sticky, tough to chew foods. Moisten in sauces & gravy. Recommend alternating solids and liquids. Recommend full supervision during mealtime to monitor for toleration of diet d/t pt hx of closing eyes and dozing off mid-task to ensure pt does not present w/ this behavior while taking PO. Message sent to MD & RN via [employer]. Prescription Clerk Clinican/Clinical Fellow: Yes: Em Mcleod M.A., CF-MICA PATCHER Supervisory Statement: I have reviewed and agree with the student/clinical fellow's documentation: Speech Language Pathologist:
--- NOTE | 2021-11-11 12:22 | PM.NEUROCN ---
History of Present Illness Data of Consult Service Date: 11/11/21 Primary Care Provider: Bola Mclaughlin MD HPI Reason for consult: Left sided week 81 years old woman with underlying history of probably atrial fibrillation and embolic looking chronic left posterior parietal infarct and microvascular disease of brain came to hospital with complaint of left-sided weakness. She was not a good is to historian and did not provide any meaningful history. She said that she was fine and wanted to be discharged. There was no distress or headache or complain of neck pain. There was no obvious seizure-like episode that anybody reported. Review of Systems Review of Systems: No recent cold or flu-like PMFSH Past Medical History Medical History Atrial fibrillation Carotid stenosis COPD (chronic obstructive pulmonary disease) Endometriosis H/O ischemic left MCA stroke HTN (hypertension) Skin cancer Ulcerative colitis Family History Family History Father Lung cancer Social History Social History Household Members: Unknown / Unable to assess Housing: Unknown / Unable to assess Do you presently have visiting nurse or other home services: No Unable to assess alcohol history related to: Unknown Alcohol intake: never Patient Tobacco Use Status: Tobacco use Unknown Advance Directives Date on File: 11/30/20 service: No Current occupational status: retired Meds Allergies Allergy/AdvReac Type Severity Reaction Status Date / Time Penicillins Allergy Severe ANAPHYLAXIS Verified 11/10/21 23:43 From Demerol AdvReac Intermediate NAUSEA & Uncoded 11/05/20 11:15 VOMITING Active Medications: Current Medications Acetaminophen (Acetaminophen 325 Mg Tablet) 650 mg PO Q6H PRN PRN Reason: Pain, Mild (Pain Scale 1-3) Melatonin (Melatonin 3 Mg Tablet) 6 mg PO BEDTIME PRN PRN Reason: Insomnia Senna (Sennosides 8.6 Mg Tablet) 17.2 mg PO BEDTIME PRN PRN Reason: Constipation Sodium Chloride (0.9 % Sodium Chloride Flush 3 Ml Syringe) 3 ml IVFLUSH QSHIFT [facility] Last Admin: 11/11/21 08:09 Dose: 3 ml Home Medications Medication Instructions Recorded Confirmed Last Taken Type albuterol sulfate 90 mcg/actuation 2 puff inhalation Q2-4H PRN 11/10/21 11/10/21 Unknown History aerosol inhaler Shortness Of Breath atorvastatin 20 mg tablet 1 tab PO DAILY 11/10/21 11/11/21 11/10/21 History famotidine 20 mg tablet 1 tab PO BID 11/10/21 11/11/21 11/10/21 History losartan 50 mg tablet 1 tab PO BID 11/10/21 11/11/21 11/10/21 History mesalamine 400 mg capsule (with 4 cap PO BID 11/10/21 11/11/21 11/10/21 History delayed release tablets inside) montelukast 10 mg tablet 1 tab PO DAILY 11/10/21 11/11/21 11/10/21 History sotalol 80 mg tablet 1 tab PO DAILY 11/10/21 11/11/21 11/10/21 History theophylline 300 mg 1 tab PO DAILY 11/10/21 11/10/21 Unknown History tablet,extended release,12 hr tiotropium bromide 18 mcg capsule 1 cap inhalation DAILY 11/10/21 11/11/21 11/10/21 History with inhalation device (Spiriva with HandiHaler) Physical Exam Vital Signs: Vital Signs: Last Vital Signs Temp 98.5 F 11/11/21 10:36 Pulse 86 11/11/21 10:36 Resp 18 11/11/21 10:36 BP 139/74 11/11/21 10:36 Pulse Ox 92 11/11/21 10:36 O2 Del Method 11/11/21 10:36 BMI result Body Mass Index 17.7 Neuro: Other: She was sleeping but I was able to easily wake her up. She was little bit groggy but able to communicate. Spontaneity and fluency of speech were normal. Comprehension was normal. She thought she was in [facility]. She was following commands. Face was symmetrical. Visual castaneda are full. There was no obvious focal arm or leg weakness. Plantars were bilaterally extensor Results Labs CBC & Chem 7: 11/11/21 05:54 11/11/21 05:54 Labs: Short CBC 11/10/21 11/11/21 Range/Units 20:50 05:54 WBC 7.2 6.4 (4.8-10.8) X10*3/uL Hgb 12.7 12.2 (12.0-16.0) g/dl Hct 38.1 37.3 (37.0-47.0) % Plt Count 317 300 (160-400) X10*3/uL BMP 11/10/21 11/11/21 21:18 05:54 Sodium 141 141 Potassium 4.2 3.9 Chloride 106 107 Carbon Dioxide 22 25 BUN 32 H D 23 H Creatinine 0.99 0.74 Calcium 9.1 8.7 Cardiac Enzymes 11/10/21 Range/Units 21:18 Total Creatine Kinase 157 H D (26-140) U/L CT and CTA of brain and neck revealed no acute finding. A chronic left posterior parietal embolic looking infarct microvascular disease and atrophy was noted. Atherosclerotic disease was noted affecting vertebral artery Assessment and Plan (1) LUE weakness: Status: Acute 81 years old woman with chronic left hemispheric embolic looking infarct, probably atrial fibrillation in the past, with left-sided weakness but she was also confused and not a good historian. Without an MRI of brain 1 cannot completely rule out possibility of a small infarct. In overall scheme of things, if she is known to have atrial fibrillation, I would recommend anticoagulating her for stroke prevention. If that was not the case or not possible, aspirin 81 mg daily with statin blood pressure control is recommended. Procedures Date of Service Date of Service: 11/11/21
[2021-11-11] MEDS: Albuterol Sulfate 90 MCG 8 GM INHALER 2 PUFF INHALE (20:26)
[2021-11-12] MEDS: 0.9 % Sodium Chloride Flush 3 ML SYRINGE IVFLUSH (00:39)
[2021-11-12] MEDS: Albuterol Sulfate 90 MCG 8 GM INHALER 2 PUFF INHALE (02:09)
[2021-11-12 03:23] VITALS: BP 160/74; PULSE 75; RESP 20; TEMP 37; O2SAT 93
[2021-11-12 07:42] VITALS: BP 137/95; PULSE 82; RESP 12; O2SAT 92
--- NOTE | 2021-11-12 10:28 | PM.DS ---
DS: Providers Provider Date of Service: 11/12/21 Date of admission: 11/10/21 22:48 Primary care physician: Bola Mclaughlin MD Consults: 11/10/21 22:49 Consult to Neurology Routine Consulting Provider: Donato Melvin Reason for consultation: LUE weakness DS: Diagnosis Discharge Diagnosis (1) LUE weakness: Status: Acute DS: Summary Hospital Course Hospital Course: Chief Complaint: Left upper extremity weakness 81-year-old female with a past medical history of hypertension, hyperlipidemia, carotid artery stenosis, history of left MCA stroke, carotid artery disease, COPD, ulcerative colitis, skin cancer, AFib presented to the hospital today with a chief complaint of left upper extremity weakness.? Patient is a poor historian-mentions yes or no for most of the questions; most of the history obtained from the records and staff.? Per ER team patient noted to have left upper extremity weakness/numbness started early in the morning-Unknown last well-known time; patient also had mild speech difficulty.? Subsequently brought her to the hospital for further evaluation.? Patient denies any numbness tingling or weakness currently.? Denies any fever chills cough.? Denies any chest pain or palpitations.? Denies any GI symptoms.? And denies any shortness of breath.? 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 EKG was nonischemic Troponins were 17.2-17.2 Labs were benign Hospital course: Patient was admitted to the hospital with for concern for stroke, CT of head did not reveal acute stroke stroke, she had neuro checks. She was evaluated by Dr. Melvin from Neurology with the following remarks and recommendations 81 years old woman with chronic left hemispheric embolic looking infarct, probably atrial fibrillation in the past, with left-sided weakness but she was also confused and not a good historian.? Without an MRI of brain 1 cannot completely rule out possibility of a small infarct.? In overall scheme of things, if she is known to have atrial fibrillation, I would recommend anticoagulating her for stroke prevention.? If that was not the case or not possible, aspirin 81 mg daily with statin blood pressure control is recommended . On reviewing record from [facility], she has documented history of AFIB and is NOT on anticoagulation but there is no reason given. Review of record further show that she has history of signficant iron deficiency anemia in the past, additionally she chronic unsteady gait with high risk of falls, in April of this year she sustained a signficant fall with a large scalp laceration Given this background, I think it is unsafe for her to be on anticoagulation and thefore will go with aspirin as suggested by Dr. Melvin. She will go home with home PT Time Spent with Patient Time attestation: Total time spent providing and/or coordinating discharge services: Discharge coordination time: Greater than 30 minutes Quality: Safe Use of Opioids Does Pt have an Active Cancer Diagnosis on the Problem List?: No Quality: Stroke Does the patient have a stroke diagnosis?: No Physical Exam Vital Signs: Vital Signs: Last Vital Signs Temp 98.6 F 11/12/21 03:23 Pulse 82 11/12/21 07:42 Resp 12 11/12/21 07:42 BP 137/95 H 11/12/21 07:42 Pulse Ox 92 11/12/21 07:42 O2 Del Method 11/12/21 07:42 O2 Flow Rate 1 11/12/21 03:23 BMI result Body Mass Index 17.7 Discharge Plan Discharge Anticipated Discharge Date/Time: 11/12/21 10:55 Patient Disposition: Home Health Service Discharge Diagnosis: TIA Referrals: Bola Mclaughlin MD [Primary Care Provider] - 1 Week Discharge Medications: Continued losartan 50 mg tablet 1 tab PO BID atorvastatin 20 mg tablet 1 tab PO DAILY sotalol 80 mg tablet 1 tab PO DAILY theophylline 300 mg tablet extended release 12 hr 1 tab PO DAILY famotidine 20 mg tablet 1 tab PO BID montelukast 10 mg tablet 1 tab PO DAILY albuterol sulfate 90 mcg/actuation HFA aerosol inhaler 2 puff INHALATION Q2-4H PRN (Reason: Shortness Of Breath) Spiriva with HandiHaler 18 mcg capsule, w/inhalation device 1 cap inhalation DAILY mesalamine 400 mg capsule (with del rel tablets) 4 cap PO BID Discharge Orders: Discharge Order (Routine); Ordered 11/12/21 Ordered By: Charles Dominguez Diet: Advance to usual diet Activity on Discharge: As tolerated Stand Alone Forms: Patient Portal Discharge page Care Plan Goals: Full recovery from TIA Health Concerns: TIA, fall risk Plan of Treatment: Take aspirin and all your medications as before Assessment: as above
--- NOTE | 2021-11-12 11:41 | W.MHC.F2F ---
Service Date Service Date: 11/12/21 Encounter Date of encounter: 11/12/21 Reasons for Services Signs and symptoms assessed: left sided weakness, unsteadines Reason for usp: teach disease management Reason for physical therapy: home safety and mobility and therapeutic exercises Homebound: Leaving the home is medically contraindicated at this time without the asist of a device and/or another person due th the listed conditions above and below. Reason homebound: unsteady gait / fall risk Homebound supporting statement: Homebound d/t unsteadiness, risks of fall, recent TIA and needs the assitance of another person Certification: Based on the above findings, I certify that this patient is confined to the home and needs intermittent usp care, physical therapy and/or speech therapy, or continues to need occupational therapy. The patient is under my care, and I have initiated the establishment of the plan of care. The patient will be followed by a physician who will periodically review the plan of care.
[2021-11-12 11:58] VITALS: BP 166/78; PULSE 67; RESP 12; O2SAT 95
--- NOTE | 2021-11-12 12:19 | MHC.CM.PN ---
pt is dcd today with hvns
--- NOTE | 2021-11-12 14:19 | PC.NURSE ---
Discharge orders in place for patient to go home, spoke to Pt and asked to called sister for transport. Message left to Roxanne to call back.
--- NOTE | 2021-11-16 14:01 | MHC.STROKE ---
LATE ENTRY: AFIB WAS NOT CONFIRMED AND PATIENT WAS A HIGH FALL RISK, THEREFORE ANTICOAGULATION WAS NOT INITIATED, ASPIRIN WAS ORDERED UPON DISCHARGE.
== END 2021-11-12 15:20 | disposition home health service (06) | DRG 69 ==
LOC: HO.ED 21:41 → HO.EDOVER 23:04 → HO.IMC 11-11 14:02
PROVIDERS: Admitting Provider Hospitalist; Emergency Provider Student in an Organized Health Care Education/Training Program; PCP Internal Medicine Medical Oncology; Visit Provider Internal Medicine
DX: G45.9 Transient cerebral ischemic attack, unspecified (principal); K51.90 Ulcerative colitis, unspecified, without complications; G83.24 Monoplegia of upper limb affecting left nondominant side; F17.210 Nicotine dependence, cigarettes, uncomplicated; E78.5 Hyperlipidemia, unspecified; I10 Essential (primary) hypertension; I48.91 Unspecified atrial fibrillation; J44.9 Chronic obstructive pulmonary disease, unspecified; Z20.822 Contact with and (suspected) exposure to COVID-19; Z86.73 Personal history of transient ischemic attack (TIA), and cerebral infarction without residual deficits; Z71.6 Tobacco abuse counseling; Z88.0 Allergy status to penicillin; Z88.5 Allergy status to narcotic agent; Z79.899 Other long term (current) drug therapy
CPT/HCPCS: 36415; 70450; 70496; 70498; 80048; 80061; 82550; 82803; 82947; 84484; 85025; 85610; 85730; 87635; 92610; 93005; 93306; 97162; 97166; 99285; Q9957; Q9967

== ENCOUNTER 2022-03-15 13:00 | Outpatient (RCR) | payer MEDICARE, BC, SELFPAY ==
--- NOTE | 2022-05-18 15:20 | MHC.SLORD ---
Speech Language Pathology Order Status: Pt's sister left a message for [employer] stating pt was hospitalized and is now in a care home, thus she will not be coming back for outpatient services. Pt d/c'ed from at this time.
== END 2022-05-18 15:30 | disposition home or self-care (01) ==
LOC: HO.SH 13:00
PROVIDERS: Visit Provider Internal Medicine Medical Oncology
DX: I63.512 Cerebral infarction due to unspecified occlusion or stenosis of left middle cerebral artery (principal); R47.01 Aphasia
CPT/HCPCS: 92507

== ENCOUNTER 2022-03-29 11:59 | Emergency (ER) | payer MEDICARE, BC, SELFPAY ==
--- NOTE | ~2022-03-29 | XR_ITS ---
EXAMINATION: XR CHEST CLINICAL INFORMATION: Fell down COMPARISON: Chest radiograph and CT chest 11/26/2020 TECHNIQUE: Frontal view of the chest was obtained. FINDINGS: Heart and pulmonary vessels appear normal. The lungs are hyperinflated suggesting COPD. Previously seen airspace opacities in the left lung have cleared. At this time, no infiltrates, effusions or lung masses are seen. Degenerative changes are present in the spine as well as both shoulders. No acute osseous fracture is seen. XR/XR chest 1V IMPRESSION: COPD. No acute intrathoracic disease.
--- NOTE | ~2022-03-29 | CT_ITS ---
CT ANGIOGRAM NECK WITH CONTRAST CT ANGIOGRAM BRAIN WITH CONTRAST CT HEAD WITHOUT CONTRAST CLINICAL INFORMATION: Found on floor. Altered mental status. COMPARISON: Head CT and CTA head and neck 11/10/2021. TECHNIQUE: First, a noncontrast CT of the head was performed. bolus sequences followed by intravenous administration 70 mL of Omnipaque 350. Helical imaging was performed in the axial plane from the thoracic inlet to the skull vertex. Delayed postcontrast imaging of the head was also performed. The data was processed at the molecular technologist workstation for generation of MIP sequences. Angled MIPs and volume rendered reformatted images were also generated at an offline 3D workstation under concurrent supervision. Stenoses are assessed in accordance with NASCET criteria unless otherwise indicated. This CT examination was performed using dose optimization techniques as appropriate, variously including the following: *Automated exposure control *Adjustment of mA and/or kV according to patient size (this includes techniques or standardized protocols for targeted exams where dose is matched to indication/reason for exam; i.e. extremities or head) *Use of iterative reconstruction technique FINDINGS: BRAIN: There is a new area of [place] to white matter differentiation loss within the inferolateral aspect of the left frontal lobe and anterior left insular ribbon 1 compared to the 11/10/[address], suspicious for an acute to subacute infarct that would be better assessed with MRI if not contraindicated. There is no significant mass effect and there is no hemorrhagic transformation. Chronic infarcts within the cerebral hemispheres bilaterally and chronic microangiopathy. [There is no intracranial hemorrhage, hydrocephalus, extra-axial surface collection, midline shift, or other herniation pattern. The basilar cisterns are preserved. No significant soft tissue abnormality. No acute osseous abnormality. The paranasal sinuses and the mastoid air cells are well aerated.] CERVICAL SOFT TISSUES AND LUNG APICES: Biapical pleural parenchymal scarring. NECK CTA: [There is a classic 3 vessel configuration of the aortic arch. Proximal arch vessels are non-stenotic. Atherosclerotic disease results in persistent severe stenosis of the right vertebral artery origin. Remainder of the right cervical vertebral artery is widely patent. 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 Both common carotid arteries are normal in course and caliber.] Atherosclerotic disease results in less than 50% stenoses of the proximal internal carotid arteries bilaterally. BRAIN CTA: Acute arterial occlusion of the proximal superior left M2 MCA division associated with oligemia within the anterior left MCA territory. There is partial reconstitution of several distal anterior left MCA branches distal to the point of occlusion. CT/CT angio head neck stroke IMPRESSION: - There is a new area of [place] to white matter differentiation loss within the inferolateral aspect of the left frontal lobe and anterior left insular ribbon 1 compared to the 11/10/[address], suspicious for an acute to subacute infarct that would be better assessed with MRI if not contraindicated. There is no significant mass effect and there is no hemorrhagic transformation. Chronic infarcts within the cerebral hemispheres bilaterally and chronic microangiopathy. - Acute arterial occlusion of the proximal superior left M2 MCA division associated with oligemia within the anterior left MCA territory. There is partial reconstitution of several distal anterior left MCA branches distal to the point of occlusion. 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 Remainder of the right cervical vertebral artery is widely patent. 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 Findings discussed with Dr. Moran at 12:59 PM on 03/29/2021.
[2022-03-29 12:12] VITALS: BP 180/98; BP 194/93; PULSE 80; PULSE 83; RESP 20; TEMP 35.5; O2SAT 98; BMI 18.6
[2022-03-29 12:17] LABS: Glucose, Whole Blood 67 mg/dL (60-115)
--- NOTE | 2022-03-29 12:17 | ECG_ITS ---
Test Reason : ?STROKE Blood Pressure : / mmHG Vent. Rate : 094 BPM Atrial Rate : 094 BPM P-R Int : 194 ms QRS Dur : 088 ms QT Int : 378 ms P-R-T Axes : 088 073 081 degrees QTc Int : 472 ms Sinus rhythm with Premature supraventricular complexes Possible Left atrial enlargement Nonspecific ST abnormality Abnormal ECG When compared with ECG of 10-NOV-2021 21:08, Premature supraventricular complexes are now Present Referred By: Bandar Uriostegui Electronically Signed By:Rodri Galeano
--- NOTE | 2022-03-29 12:20 | ED_ITS ---
HPI - Altered Mental Status General Chief Complaint: Altered Mental Status Stated Complaint: UNWIT FALL,ON FLOOR, ALTERED PER EMS Time Seen by Provider: 03/29/22 12:13 Source: patient, EMS, RN notes reviewed and old records reviewed Mode of arrival: EMS Limitations: altered mental status History of Present Illness HPI narrative: 81-year-old female with history of dementia presents to emergency department after being found down. Her daughter had called multiple times is unable to get a hold for unsure how long the patient has been down she was incontinent unsure if this was covered in feces or urine then brought in by EMS. Patient is not able to follow commands here on arrival she does have baseline dementia. Unsure of the level of her dementia baseline the patient will not answer any questions she does say hi and states that she is fine repeatedly. Patient is moving all extremities normally she does have history of stroke in the past. She has history of carotid stenosis also colitis hypertension history of sepsis hypoxia pneumonia. Patient on arrival has a low blood sugar and 67 start the patient on D10. MD complaint: altered mental status, decreased responsiveness and weakness Related Data Home Medications Medication Instructions Recorded Confirmed albuterol sulfate 90 mcg/actuation 2 puff inhalation Q2-4H PRN 11/10/21 11/10/21 aerosol inhaler Shortness Of Breath atorvastatin 20 mg tablet 1 tab PO DAILY 11/10/21 11/11/21 famotidine 20 mg tablet 1 tab PO BID 11/10/21 11/11/21 losartan 50 mg tablet 1 tab PO BID 11/10/21 11/11/21 mesalamine 400 mg capsule (with 4 cap PO BID 11/10/21 11/11/21 delayed release tablets inside) montelukast 10 mg tablet 1 tab PO DAILY 11/10/21 11/11/21 sotalol 80 mg tablet 1 tab PO DAILY 11/10/21 11/11/21 theophylline 300 mg 1 tab PO DAILY 11/10/21 11/10/21 tablet,extended release,12 hr tiotropium bromide 18 mcg capsule 1 cap inhalation DAILY 11/10/21 11/11/21 with inhalation device (Spiriva with HandiHaler) Previous Rx's Medication Instructions Recorded aspirin 81 mg tablet,delayed 81 mg PO DAILY #30 tabs 11/12/21 release Allergies Allergy/AdvReac Type Severity Reaction Status Date / Time Penicillins Allergy Severe ANAPHYLAXIS Verified 11/10/21 23:43 From Demerol AdvReac Intermediate NAUSEA & Uncoded 11/05/20 11:15 VOMITING Review of Systems Review of Systems: unable to obtain Yes all other systems are reviewed and are negative, Unobtainable due to mental condition and Unobtainable due to mental status PMFSH Past Medical History Medical History Atrial fibrillation Carotid stenosis COPD (chronic obstructive pulmonary disease) Endometriosis H/O ischemic left MCA stroke HTN (hypertension) Skin cancer Ulcerative colitis Family History Family History Father Lung cancer Social History Social History Household Members: None Housing: House Do you presently have visiting nurse or other home services: No Unable to assess alcohol history related to: Unknown Alcohol intake: never Patient Tobacco Use Status: Current everyday Tobacco user Tobacco use type: Cigarette Cigarettes Per Day: 5 Advance Directives: Yes Advance Directives on File: Yes Advance Directives Date on File: 11/30/20 service: No Current occupational status: retired Physical Exam ED Vital Signs: Vital Signs - 24 hr 03/29/22 12:12 Temperature 96 F L Pulse Rate 83 Respiratory Rate 20 Blood Pressure 194/93 H Pulse Oximetry 98 Oxygen Delivery Method Room Air BMI result Body Mass Index 18.6 Neurological exam: CN II- XII tested. Patient is alert and oriented to person place and time. Patient has no dysphagia or dysarthia, denies good vision in all four vision castaneda no nystagmus on exam, good strength to upper and lower extremities with normal reflexes to brachioradialis, wrist, patella and achilles. Negative romberg, good finger to nose and heel to leblanc. General: Well-appearing well-nourished in no signs of distress HEENT: Normocephalic atraumatic Neck: No signs of JVD, no masses no tenderness or lymphadenopathy Cardiovascular: Regular rate and rhythm Respiratory: Clear to auscultation bilaterally Abdomen: Soft nontender no masses Extremities: Normal pedal pulses no signs of edema Skin: Dry warm no rashes Back: No tenderness full ROM NIH Stroke Scale Internal: Initial- Upon Arrival Level of Consciousness: Alert Level of Consciousness Questions: Answers neither question correctly Level of Consciousness Commands: Performs neither task correctly Best Gaze: Normal Visual: No visual loss Facial Palsy: Normal Motor Arm (Right): No drift Motor Arm (Left): No drift Motor Leg (Right): No drift Motor Leg (Left): No drift Limb Ataxia: Absent Sensory: Normal Best Language: Severe aphasia Dysarthia: Normal Extinction and Inattention: No abnormality Score: 6 Medications Administered Generic Name Dose Route Start Last Admin Trade Name Freq PRN Reason Stop Dose Admin Sodium Chloride 1,000 mls @ 999 mls/hr 03/29/22 12:30 03/29/22 12:48 Ns IV 03/29/22 13:30 999 mls/hr .Q1H1M DANIELE Administration Dextrose 1,000 mls @ 75 mls/hr 03/29/22 12:30 03/29/22 12:48 D10 IVCONT 75 mls/hr .[id number] DANIELE Administration Discontinued Medications Generic Name Dose Route Start Last Admin Trade Name Freq PRN Reason Stop Dose Admin Iohexol 100 ml 03/29/22 12:45 03/29/22 12:46 Iohexol 350 Mg/Ml 100 Ml Infus..Btl IV 03/29/22 12:46 75 ml ONCE ONE Administration Medical Decision Making Medical Decision Making MDM Narrative: I will get a complete stroke workup on the patient patient seen immediately upon arrival I will get an x-ray start the patient on D10 and reassess frequently. Patient is not a candiate for TPA unknown when symptoms started. 1304Call from Radiology patient has a large vessel occlusion acute superior upper and to his well's left MCA occlusion. Call was made immediately to [facility] images were uploaded for review neuro interventional radiology for stroke . [address] Eason at [facility] who wants the patient to be transferred to the ER for acute perfursion imaging at this time. Unkown down time. I will speak with the ER doctorJacki Polanco. Who agreed to accept the patient. I did call her sister Roxanne Jose. I spoke and explained the diagnosis and need for transfer. Has had strokes over a year ago as well. Last few days has been more confused. Phone number of the sister is [phone] Differential Diagnosis Differential Diagnoses: The differential diagnosis associated with the presentation includes Acute CVA with word-finding difficulties patient appears to have Broca aphasia not answering any questions appropriately patient also could have rhabdomyolysis sure how long patient has been down which can lead to renal failure concern also the patient could have an infectious cause of her symptoms including UTI. Patient also found to be hypoglycemic on arrival was started on D10. Admission/Observation Consideration of admission/observation: Escalation of care including admission/observation considered Consult Healthcare Provider Management of the patient was discussed with: Hospitalist Lab Data MDM Lab Attestation statement: I reviewed the patient's lab results. Labs: Lab Results 03/29/22 03/29/22 Range/Units 12:13 12:24 Whole Blood PT 14.2 H (11.1-13.5) sec Whole Blood INR 1.2 H (0.9-1.1) POC Glucose 67 (60-115) mg/dL Independent Interpretation I performed an independent interpretation of an: EKG, Plain X-Ray and CT Scan Radiology Impression Discussion of test interpretation with radiology: I have reviewed the radiologist's reading. Critical Care Time Critical Care Time Critical Care Time: Yes Total Critical Care Time: 70 Attestation: Acute physician the patient patient was altered signs of stroke patient was sent immediately to CT scan found have a large vessel occlusion I did speak with the [facility] as well set up for transfer. Discharge Plan Discharge Clinical Impression: Altered mental status, Acute ischemic left MCA stroke Patient Disposition: Xfer Acute Care Hospital Transfer Details: ACute stroke needing interventional radiology Prescriptions: No Action losartan 50 mg tablet 1 tab PO BID atorvastatin 20 mg tablet 1 tab PO DAILY sotalol 80 mg tablet 1 tab PO DAILY theophylline 300 mg tablet extended release 12 hr 1 tab PO DAILY famotidine 20 mg tablet 1 tab PO BID montelukast 10 mg tablet 1 tab PO DAILY albuterol sulfate 90 mcg/actuation HFA aerosol inhaler 2 puff INHALATION Q2-4H PRN (Reason: Shortness Of Breath) Spiriva with HandiHaler 18 mcg capsule, w/inhalation device 1 cap inhalation DAILY mesalamine 400 mg capsule (with del rel tablets) 4 cap PO BID aspirin 81 mg tablet,delayed release (DR/EC) 81 mg PO DAILY Qty: 30 0RF Rx Instructions: offer OTC first
[2022-03-29 12:28] LABS: Prothrombin Time Whole Bld POC 14.2 sec (11.1-13.5); ~PT, ~INR - Anti Coag Clinic 1.2 (0.9-1.1)
[2022-03-29] MEDS: iohexoL 350 MG/ML 100 ML INFUS..BTL IV (12:46)
[2022-03-29] MEDS: Dextrose 10 % 1,000 ML 75 ML IVCONT (12:48)
[2022-03-29] MEDS: 0.9 % Sodium Chloride 1,000 ML 999 ML IV (12:48)
[2022-03-29 12:55] VITALS: BP 182/99; PULSE 99; RESP 16; O2SAT 95
--- NOTE | 2022-03-29 13:04 | MHC.EDTECH ---
@1302 CALL PLACED TO [facility] PT TX LINE @ DR PARISH REQUEST ROLF ANSWERS, TAKES PT INFO, THEN ASKS TO SPEAK WITH DR МАРИНА PARISH TAKES OVER CALL RIGHT AWAY
--- NOTE | 2022-03-29 13:16 | PC.NURSE ---
patient awake alert to person only, unable to follow commands, hall monitor applied, pt to ct scan, vials currently stable, bilateral eyes perrla, ivs inserted, gifford cath placed, poc obtained-pt poc 67-, iv D10 hung per order, NS hung per order, nasal swab obtained, tech attempting labs-pt difficult stick, will continue to monitor
--- NOTE | 2022-03-29 13:16 | MHC.EDTECH ---
@2204 CALL RECEIVED FROM [facility] PT TX LINE [place] ASKING TO SPEAK WITH DR МАРИНА PARISH TAKES OVER CALL RIGHT AWAY
[2022-03-29 13:18] LABS: Appearance Urine Clear; Color Urine Yellow; Glucose Urine UA Negative (Negative); Leukocyte Esterase Urine Negative (Negative); Nitrite Urine Negative (Negative); PH 5.5 (5.0-9.0); Specific Gravity - Urine >= 1.030 (1.005-1.025); Urine Blood Negative (Negative); Urine Ketones 15 mg/dL (Negative); Urine Protein Trace mg/dL (Neg-Trace)
[2022-03-29 13:25] VITALS: BP 184/94; PULSE 97; RESP 16; O2SAT 95
[2022-03-29 13:27] LABS: MANUAL DIFF FLAG NO
[2022-03-29 13:29] LABS: Basophils Percent Auto 0.3 % (0-2); Eosinophils Percent Auto 0.1 % (0-4); Hematocrit 44.3 % (37.0-47.0); Hemoglobin 14.2 g/dl (12.0-16.0); Imm Gran Abs Auto 0.06 X10*3/uL (0.00-0.03); Imm Gran Pct Auto 0.5 % (0.0-0.4); Lymphocytes Percent Auto 8.6 % (20-40); Mean Corpuscular HGB Conc 32.1 g/dl (31.0-35.0); Mean Corpuscular Hemoglobin 30.8 pg (27.0-33.0); Mean Corpuscular Volume 96.1 fL (80.0-98.0); Mean Platelet Volume 9.6 fL (9.4-12.3); Monocytes Percent Auto 8.6 % (2-11); Neutrophils Absolute Auto 9.2 x10*3/uL (2.0-8.3); Neutrophils Percent Auto 81.9 % (45-73); Platelet Count 274 X10*3/uL (160-400); Red Blood Count 4.61 X10*6/uL (4.20-5.50); Red Cell Distribution Width 12.9 % (11.0-16.0); White Blood Count 11.2 X10*3/uL (4.8-10.8)
[2022-03-29 13:32] LABS: Glucose, Whole Blood 103 mg/dL (60-115)
[2022-03-29 13:34] LABS: INTERNATIONAL NORM RATIO 1.1 (0.9-1.1); Prothrombin Time 12.2 SEC (10.0-13.1)
[2022-03-29 13:35] VITALS: BP 181/82; PULSE 92; RESP 16; O2SAT 95
[2022-03-29 13:37] LABS: Partial Thromboplastin Time 26.8 SEC (26.0-36.4)
[2022-03-29 13:44] LABS: Ammonia 50 umol/L (13-55)
[2022-03-29 13:51] LABS: Alanine Aminotransferase 15 U/L (0-31); Albumin Level 3.7 g/dL (3.5-5.0); Alkaline Phosphatase 78 U/L (39-117); Anion Gap 18 (12-20); Aspartate Amino Transferase 29 U/L (5-31); Bilirubin Direct 0.2 mg/dL (0.0-0.5); Bilirubin Total 0.7 mg/dL (0.0-1.0); Blood Urea Nitrogen 18 mg/dL (9-16); Calcium 8.9 mg/dL (8.4-10.2); Carbon Dioxide 20 mmol/L (22-29); Chloride 107 mmol/L (96-108); Creatinine Clr Calc Pharmacy 50.2; Estimated Glomerular Filt Rate > 60; Glucose Random 98 mg/dL (60-115); Lipase 11 U/L (8-78); Sodium 141 mmol/L (135-145); Total Protein 6.6 g/dL (6.5-8.0)
[2022-03-29 13:57] LABS: Troponin-I High Sensitivity 12.2 ng/L (<3.5-17.0)
--- NOTE | 2022-03-29 14:02 | PC.NURSE ---
report called to [facility], ems at bedside to transfer patient, patients family member also at bedside
--- NOTE | 2022-03-29 14:07 | PC.NURSE ---
iv saline continue to running slowly and was sent on transfer with D10 iv fluids
[2022-03-29 14:13] LABS: Lactic Acid 1.5 mmol/L (0.5-2.0)
[2022-03-29 14:22] LABS: Influenza A PCR NEGATIVE (Negative); Influenza B PCR NEGATIVE (Negative); Resp Syncy Virus RNA Qual PCR NEGATIVE (Negative); SARS COV2 PCR INHOUSE NEGATIVE (Negative)
[2022-03-29 14:37] LABS: Ethanol < 10 mg/dL; Magnesium 1.8 mg/dL (1.6-2.6)
--- NOTE | 2022-03-29 15:01 | PHA.MEDREC ---
Pharmacy Consult ? Medication Reconciliation Pharmacy has completed the medication reconciliation. Patient discharged before med rec complete
== END 2022-03-29 14:09 | disposition short-term general hospital (02) ==
PROVIDERS: Emergency Provider Student in an Organized Health Care Education/Training Program; PCP Internal Medicine Medical Oncology
DX: I63.512 Cerebral infarction due to unspecified occlusion or stenosis of left middle cerebral artery (principal); R29.706 NIHSS score 6; I10 Essential (primary) hypertension; Z20.822 Contact with and (suspected) exposure to COVID-19; Z20.828 Contact with and (suspected) exposure to other viral communicable diseases; F03.90 Unspecified dementia, unspecified severity, without behavioral disturbance, psychotic disturbance, mood disturbance, and anxiety; I48.91 Unspecified atrial fibrillation; F17.210 Nicotine dependence, cigarettes, uncomplicated; Z86.73 Personal history of transient ischemic attack (TIA), and cerebral infarction without residual deficits; Z79.02 Long term (current) use of antithrombotics/antiplatelets; Z79.899 Other long term (current) drug therapy; Z79.82 Long term (current) use of aspirin
CPT/HCPCS: 0241U; 36415; 70450; 70496; 70498; 71045; 80048; 80076; 81003; 82077; 82140; 82550; 82947; 83605; 83690; 83735; 84484; 85025; 85610; 85730; 93005; 96365; 99285; Q9967